=== PATIENT | female | born 1990 ===

== ENCOUNTER 2021-12-29 15:40 | Outpatient (REF) | payer OTHER, SELFPAY ==
[2021-12-29 16:56] LABS: Calculated LDL 99 mg/dL (<100); Cholesterol 182 mg/dL (<200); HDL Cholesterol 72 mg/dL (40-60); Triglyceride 57 mg/dL (<150)
[2021-12-30 12:55] LABS: Tissue Transglutaminase Ab IgA <1.2 U/mL
== END 2021-12-29 15:41 | disposition home or self-care (01) ==
LOC: NCHCN 15:40
PROVIDERS: Visit Provider Physician Assistant
DX: K90.0 Celiac disease (principal); Z13.220 Encounter for screening for lipoid disorders
CPT/HCPCS: 80061; 83516

== ENCOUNTER 2022-10-17 02:35 | Outpatient (CLI) | payer BC, SELFPAY ==
--- NOTE | 2022-10-17 07:45 | DI.MRI_ITS ---
Exam(s) MR LOWER JOINT RT WO EXAM: MR LOWER JOINT RT WO CLINICAL HISTORY: MCL SPRAIN OF RT KNEE, S83.411A; INTERNAL DERANGEMENT, M23.91. TECHNIQUE: Multiplanar multisequence MRI was performed. COMPARISON: CR XR KNEE 4 VIEW RIGHT from 08/21/2022 FINDINGS: BONES: There is no fracture or contusion pattern. JOINTS: Articular cartilage is unremarkable. No effusion is present. TENDONS: Extensor mechanism: Unremarkable. Medial retinaculum: Unremarkable. Lateral retinaculum: Unremarkable. Popliteus: Unremarkable. MUSCLES: Unremarkable. MENISCI: The medial meniscus is unremarkable. The lateral meniscus is unremarkable. SOFT TISSUES: Unremarkable. LIGAMENTS: Anterior Cruciate: Unremarkable. Posterior Cruciate: Unremarkable. Medial Collateral:Unremarkable. Lateral Collateral: Unremarkable. OTHER: IMPRESSION: Unremarkable MRI of the right knee. DATA REPOSITORY:
== END 2022-10-17 02:55 ==
LOC: DI 02:36
PROVIDERS: Visit Provider Physician Assistant
DX: S83.411A Sprain of medial collateral ligament of right knee, initial encounter (principal); X58.XXXA Exposure to other specified factors, initial encounter
CPT/HCPCS: 73721

== ENCOUNTER 2022-12-05 19:44 | Outpatient (REF) | payer BC, SELFPAY ==
[2022-12-06 14:24] LABS: Chlamydia Result Negative (Negative); GC Result Negative (Negative)
== END 2022-12-05 19:45 | disposition home or self-care (01) ==
LOC: NCHCN 19:44
PROVIDERS: Visit Provider Physician Assistant
DX: Z11.3 Encounter for screening for infections with a predominantly sexual mode of transmission (principal)
CPT/HCPCS: 87491; 87591

== ENCOUNTER 2024-01-15 16:49 | Outpatient (REF) | payer OTHER, SELFPAY ==
--- NOTE | 2024-01-15 13:20 | PAPFT_PTH ---
PATIENT: Rachana Sewell LOC: [facility]#:[id number] AGE/SX: 33/F ROOM: RE01/15/[address]: Shorty Beaulieu : 1990 BED: DIS: 01/15/2024 SPEC #: [id number] RECD: 01/15/24 18:22 STATUS: YANG REQ #: [id number] CARLA: 01/15/24 13:[address]: Shorty Beaulieu DEPT: [facility], [facility]–1983 Cytology RECD BY: Meka Brower ENTERED: 01/15/24 18:22 SP TYPE: PAPFT OTHR DR: Unknown,Unknown Tissues: 1 - CX/ENDOCX FOR PAP SMEARS Procedures: PAP THIN PREP/[facility] Screening HPV DNA PROBE Comments: [id number] (HPV 16 & 18/45)
--- OUTSIDE RECORDS SUMMARY | 2024-01-15 16:50 | XMS_ITS | Encounter Summary ---
Author Organization [facility] Address [address] [place] [address] Care Team Providers Care Slot Supervisor Name Role Phone Siena Jimenez Primary Care Provider + Encounter Details Date Type Department Care Team (Late st Contact Info) Description 05/17/2021 Lab Requisition [facility] Pathology & [facility] [address] [place] [address] Outr Resulting Lab, Provider Social History Tobacco Use Types Packs/Day Years Used Date Smoking Tobacco: Former Cigarettes Q uit: 10/11/2015 Smokeless Tobacco: Never Alcohol Use Standard Drinks/Week Comments Yes 4.2 (1 standard drink = 0.6 oz p ure alcohol) Interpersonal Safety Answer Date Record ed Physically Hurt Never 10/25/2019 Verbally Threaten Not on file 10/25/2019 Sex and Gender Information Value Date Recorded Sex Assigned at Not on file Gender Identity Not on file Sexual Orientation Not on file documented as of this encounter Functional Status Cognitive Status Response Date of Assessm ent Because of a physical, menta l, or emotional condition, do you have serious difficulty concentrating, remembering, or making decisions? (5 years old or older) Yes 06/28/2011 documented as of this encounter Plan of Treatment Not on file documented as of this encounter Procedures Procedure Name Priority Date/Time Associated Diagnosis Comments ESTRADIOL, ADULTS Routine 05/17/2021 9:58 EST LH Routine 05/17/2021 9:58 EST FSH Routine 05/17/2021 9:58 EST documented in this encounter Results * FSH (05/17/2021 9:58 EST) FSH 9.0 See Note mIU/mL 05/17/2021 22:28 EST [facility] Blood VENOUS BLOOD / Unknown 05/17/2021 9:58 EST 05/17/2021 21:07 EST Narrative [facility] - 05/17/2021 22:28 EST NOTE: Female FSH Reference Ranges (>= 13 Menstruating): PHYSIOLOGICAL STATUS ? REFERENCE RANGE ? Follicular (-12 to -4 days): ?? 2.5 - 10.2 mIU/mL Midcycle (-3 to +2 days): ?3.4 - 33.4 mIU/mL Luteal (+4 to +12 days): ? 1.5 - 9.1 mIU/mL Postmenopausal: ?23.0 - 116.3 mIU/mL Reference Ranges for female patients <13 years old have not been established. Provider Outr Resulting Lab CHEMISTRY & BLOOD GAS ORDERABLES [facility] [address] [place] [address] * ESTRADIOL, ADULTS (05/17/2021 9:58 EST) Estradiol 296 See Note pg/mL 05/17/2021 22:02 EST [facility] Comment: NOTE: FEMALE REFERENCE RANGES: MENSTRUATING ? By cycle day relative to LH peak Follicular ?(-12 to -4 days) ??20-144 pg/mL Midcycle ?(-3 to +2 days) ?? 64-357 pg/mL Luteal ?(+4 t0 +12 days) ??56-214 pg/mL POSTMENOPAUSAL ?<32 pg/mL *Cross reactivity with Fulvestrant could lead to a falsely elevated estradiol result in patients treated with this drug. Blood VENOUS BLOOD / Unknown 05/17/2021 9:58 EST 05/17/2021 21:07 EST Provider Outr Resulting Lab CHEMISTRY & BLOOD GAS ORDERABLES Performing Organization Address [facility] de Phone Number [facility] [address] [place] [address] * LH (05/17/2021 9:58 EST) Luteinizing Hormone 5.5 See Note mIU/mL 05/17/2021 22:26 EST [facility] Comment: NOTE: Female Reference Ranges: Pre-Pubertal: ?<6.0 mIU/mL Menstruating: Follicular Phase(-12 to -4 days: ??1.9 - 12.5 mIU/mL Midcycle(-3 to +2 days): ?8.7 - 76.3 mIU/mL Luteal Phase(+4 to +12 days): ? 0.5 - 16.9 mIU/mL Post Menopausal: 15.9 - 54.0 mIU/mL Blood VENOUS BLOOD / Unknown 05/17/2021 9:58 EST 05/17/2021 21:07 EST Provider Outr Resulting Lab CHEMISTRY & BLOOD GAS ORDERABLES Performing Organization Address [facility] de Phone Number [facility] [address] [place] [address] documented in this encounter Visit Diagnoses Not on filedocumented in this encounter Care Teams Slot Supervisor Relationship Specialty Start Date End Date Siena Jimenez PA [address] [place] [address] [place] [phone] PCP - General 09/29/18 documented as of this encounter
--- OUTSIDE RECORDS SUMMARY | 2024-01-15 16:50 | XMS_ITS | Encounter Summary ---
Author Organization [facility] Address [address] [place] [address] Care Team Providers Care Senior Software Development Engineer Name Role Phone Siena Jimenez Primary Care Provider + Encounter Details Date Type Department Care Team (Late st Contact Info) Description 12/05/2022 Lab Requisition [facility] Pathology & Laboratory Medicine - [facility] [address] [place] [address] Outr Resulting Lab, Provider Social History Tobacco [...] Procedure Name Priority Date/Time Associated Diagnosis Comments CHLAMYDIA/N. GONORRHOEAE AMPLIFIED NUCLEIC ACID Routine 12/05/2022 11:00 EDT documented in this encounter Results * CHLAMYDIA/N. GONORRHOEAE AMPLIFIED RNA (12/05/2022 11:00 EDT) Neisseria gonorrhoeae Result Negative Negative 12/06/2022 14:14 EDT [facility] Chlamydia trachomatis Result Negative Negative 12/06/2022 14:14 EDT [facility] Urine URINE / Unknown 12/05/2022 1 1:00 EDT 12/05/2022 22:25 EDT Narrative [facility] - 12/06/2022 14:14 EDT A first catch urine specimen is acceptable for detection of Gonorrhea and Chlamydia, but might detect up to 10% fewer infections when compared with vaginal and endocervical swab samples. Provider Outr Resulting Lab MICROBIOLOGY - GENERAL ORDERABLES [facility] [address] [place] [address] documented in this encounter Visit Diagnoses Not on filedocumented in this encounter Care Teams Senior Software Development Engineer Relationship Specialty Start Date End Date Siena Jimenez PA [address] [place] [address] [place] [address] PCP - General 09/29/18 documented as of this encounter
--- OUTSIDE RECORDS SUMMARY | 2024-01-15 16:50 | XMS_ITS | Encounter Summary ---
Author Organization [facility] Address [address] [place] [address] Care Team Providers Care Script Artist Name Role Phone Siena Jimenez Primary Care Provider + Encounter Details Date Type Department Care Team (Late st Contact Info) Description 06/21/2020 Orders Only [facility] Radiology - Main [place] [address] [place] [address] Jane Gibson MD [address] [place] [address] Social History Tobacco Use Types Packs/Day Years [...] on file documented as of this encounter Visit Diagnoses Not on filedocumented in this encounter Care Teams Script Artist Relationship Specialty Start Date End Date Siena Jimenez PA [address] [place] [address] [place] [phone] PCP - General 09/29/18 documented as of this encounter
--- OUTSIDE RECORDS SUMMARY | 2024-01-15 16:50 | XMS_ITS | Referral Summary ---
Author Organization [facility] Address [address] [place] [address] Care Team Providers Care Manager Produce Name Role Phone Siena Jimenez Primary Care Provider + Allergies Active Allergy Reactions Criticality Noted Date Comments Avocado Itching 11/02/2016 Other - See Comments Other (See Comments) 05/24 Raw honey, avocado --> itchy mouth, throat, ear canals Medications Medication Sig Dispensed Refills Start Date End Date Status acetaminophen (TYLENOL) 500 mg tablet Take 2 Tabs by mouth every 6 hours. 06/29/2011 Active citalopram (CELEXA) 10 mg tablet Take 10 mg by mouth daily. 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 Hyperprolactinemia (HCC-CMS) 09/13/2011 Fracture of second lumbar vertebra (HCC-CMS) 07/2011 Immunizations Name Administration Dates Next Due Influenza (split) 06/29/2011 Social History Tobacco Use Types Packs/Day Years [...] on file Sexual Orientation Not on file Last Filed Vital Signs Vital Sign Reading Time Taken Comments Blood Pressure 118/63 10/10/2018 1339 EDT Pulse 63 10/10/2018 1339 EDT Temperature 35.5 ??C (95.9 ??F) 06/30/2011 0530 EDT Respiratory Rate 12 10/24/2011 1059 EDT Oxygen Saturation 100% 06/30/2011 0530 EDT Inhaled Oxygen Concentration - - Weight 90.7 kg (199 lb 14.4 oz) 10/10/2018 1339 EDT Height 168.9 cm (5' 6.5) 10/10/2018 1339 EDT Body Mass Index 31.78 10/10/2018 1339 EDT Functional Status Cognitive Status Response Date of Assessm ent Because of a physical, menta l, or emotional condition, do you have serious difficulty concentrating, remembering, or making decisions? (5 years old or older) Yes 06/28/2011 Plan of Treatment Not on file Advance Directives For more information, please contact: [phone] * Full Code (Latest Code Status on File) Date Activated Date Inactivated Comments 06/28/2011 5:02 06/30/2011 16:52 Care Teams Manager Produce Relationship Specialty Start Date End Date Siena Jimenez PA [address] [place] [address] [place] [phone] PCP - General 09/29/18
--- OUTSIDE RECORDS SUMMARY | 2024-01-15 16:50 | XMS_ITS | Encounter Summary ---
Author Organization [facility] Address [address] [place] [address] Care Team Providers Care Picture Framer Name Role Phone Siena Jimenez Primary Care Provider + Reason for Visit * Reason Onset Date Comments Medication Management 10/14/2018 Encounter Details Date Type Department Care Team (Late st Contact Info) Description 10/14/2018 Telephone [facility] Endocrinology - [address] [address] Parvez Wright MD [address] [place] [address] Medication Management Social History Tobacco Use Types Packs/Day Years Used Date Smoking Tobacco: Former Cigarettes Q uit: 10/11/2015 Smokeless Tobacco: Never Alcohol Use Standard Drinks/Week Comments Yes 4.2 (1 standard drink = 0.6 oz p ure alcohol) Sex and Gender Information Value Date Recorded [...] Yes 06/28/2011 documented as of this encounter Ordered Prescriptions Prescription Sig Dispensed Refills Start Date End Da te cabergoline (DOSTINEX) 0.5 mg tabletIndications:Amenor lilly, secondary,Hyperprolactin emia (HCC-CMS) Take 0.5 Tabs by mouth twice a week. Mondays and wednesdays 24 Tab 1 10/16/2018 11/24/2019 documented in this encounter Miscellaneous Notes * Telephone Encounter - Lorraine Doss RN - 10/15/2018 1140 EDT Calling patient 10/15/18 11:41 Unable to reach patient. Left message to call back if has any questions. LORRAINE DOSS RN 10/15/2018 11:42 * Telephone Encounter - Parvez Wright MD - 10/14/2018 1656 EDT I just prescribed it thanks * Telephone Encounter - Tomasa Cooper - 10/14/2018 1124 EDT Patient is calling to inform Dr. Jeff that she would like to go on the medication of [place]. Please send the prescription to [facility]. Please call with any questions or concerns. documented in this encounter Plan of Treatment Not on file documented as of this encounter Visit Diagnoses Diagnosis Amenorrhea, secondary Absence of menstruation Hyperprolactinemia (HCC-CMS) Other and unspecified anterior pituitary hyperfunction documented in this encounter Discontinued Medications Medication Sig Discontinue Reason Start Date End Da te cabergoline (DOSTINEX) 0.5 mg tabletIndications:Amenorr hea, secondary,Hyperprolactine mya (HCC-CMS) Take 0.5 Tabs by mouth twice a week. Therapy completed 09/13/2011 10/14/2018 documented as of this encounter Care Teams Picture Framer Relationship Specialty Start Date End Date Siena Jimenez PA [address] [place] [address] [place] [phone] PCP - General 09/29/18 documented as of this encounter
--- OUTSIDE RECORDS SUMMARY | 2024-01-15 16:50 | XMS_ITS | Encounter Summary ---
Author Organization [facility] Address [address] [place] [address] Care Team Providers Care Lay Midwife Name Role Phone Siena Jimenez Primary Care Provider + Reason for Visit * Reason Comments Other Encounter Details Date Type Department Care Team (Late st Contact Info) Description 11/24/2019 Refill [facility] Endocrinology - [address] [address] Parvez Wright MD [address] [place] [address] Other Social History Tobacco Use Types Packs/Day Years [...] 0.5 mg tabletIndications:Amenor lilly, secondary,Hyperprolactin emia (HCC-CMS) TAKE 1/2 TABLET BY MOUTH TWO TIMES A WEEK ON SATURDAY AND SATURDAY 24 Tab 1 11/24/2019 06/30/2020 documented in this encounter Plan of Treatment Not on file documented as of this encounter Visit Diagnoses Diagnosis Amenorrhea, secondary Absence of menstruation Hyperprolactinemia (HCC-CMS) Other and unspecified anterior pituitary hyperfunction documented in this encounter Discontinued Medications Medication Sig Discontinue Reason Start Date End Da te cabergoline (DOSTINEX) 0.5 mg tabletIndications:Amen orrhea, secondary,Hyperprolact inemia (HCC-CMS) Take 0.5 Tabs by mouth twice a week. Mondays and wednesdays10/16/2018 11/24/2019 documented as of this encounter Care Teams Lay Midwife Relationship Specialty Start Date End Date Siena Jimenez PA [address] [place] [address] [place] [address] PCP - General 09/29/18 documented as of this encounter
--- OUTSIDE RECORDS SUMMARY | 2024-01-15 16:50 | XMS_ITS | Encounter Summary ---
Author Organization [facility] Address [address] [place] [address] Care Team Providers Care Developer Automatic Name Role Phone Siena Jimenez Primary Care Provider + Encounter Details Date Type Department Care Team (Late st Contact Info) Description 07/27/2019 Lab Requisition [facility] Pathology & Laboratory Medicine - [facility] [address] [place] [address] Outr Resulting Lab, Provider Social History Tobacco [...] Procedure Name Priority Date/Time Associated Diagnosis Comments PROLACTIN Routine 07/27/2019 10:29 EDT documented in this encounter Results * PROLACTIN (07/27/2019 10:29 EDT) Prolactin 41.7 See Table ng/mL 07/28/2019 11:03 EDT [facility] Comment: NOTE: Female Reference Ranges: PHYSIOLOGICAL STATUS ?EXPECTED RANGE ? Postmenopausal ?1.8 - 20.3 ng/mL ?9.7 - 208.5 ng/mL Non- ?2.8 - 29.2 ng/mL Reference Ranges for Prolactin in female patients <18 years old have not been established. Blood VENOUS BLOOD / Unknown 07/27/2019 10:29 EDT 07/27/2019 21:54 EDT Provider Outr Resulting Lab CHEMISTRY & BLOOD GAS ORDERABLES Performing Organization Address [facility] Co de Phone Number [facility] [address] [place] [address] documented in this encounter Visit Diagnoses Not on filedocumented in this encounter Care Teams Developer Automatic Relationship Specialty Start Date End Date Siena Jimenez PA [address] [place] [phone] PCP - General 09/29/18 documented as of this encounter
--- OUTSIDE RECORDS SUMMARY | 2024-01-15 16:50 | XMS_ITS | Encounter Summary ---
Author Organization [facility] Address [address] [place] [address] Care Team Providers Care Dump Motor Operator Name Role Phone Siena Jimenez Primary Care Provider + Reason for Visit * Reason Comments Other Encounter Details Date Type Department Care Team (Late st Contact Info) Description 09/28/2020 Refill [facility] Endocrinology - [address] [address] Parvez Wright MD [address] [place] [address] Other Social History Tobacco Use [...] SATURDAY AND SATURDAY 24 Tablet 1 10/03/2020 documented in this encounter Miscellaneous Notes * Telephone Encounter - Veronique Goodman RN - 09/29/2020 0851 EDT PLAN 1. Check full pituitary panel 2. Pituitary MRI 3. We will increase Dostinex to 1 tablet twice per week if prolactin remains elevated documented in this encounter Plan of Treatment Not on file documented as of this encounter Visit Diagnoses Diagnosis Amenorrhea, secondary Absence of menstruation Hyperprolactinemia (HCC-CMS) Other and unspecified anterior pituitary hyperfunction documented in this encounter Discontinued Medications Medication Sig Discontinue Reason Start Date End Da te cabergoline (DOSTINEX) 0.5 mg tabletIndications:Amenorr hea, secondary,Hyperprolactine mya (HCC-CMS) Take 1 Tab by mouth twice a week for 90 days. 06/30/2020 10/03/2020 documented as of this encounter Care Teams Dump Motor Operator Relationship Specialty Start Date End Date Siena Jimenez PA [address] [place] [address] [place] [address] PCP - General 09/29/18 documented as of this encounter
--- OUTSIDE RECORDS SUMMARY | 2024-01-15 16:50 | XMS_ITS | Encounter Summary ---
Author Organization [facility] Address [address] [place] [address] Care Team Providers Care Deburr Operator Name Role Phone Siena Jimenez Primary Care Provider + Reason for Visit * Reason Onset Date Comments Labs Only 06/22/2020 Encounter Details Date Type Department Care Team (Late st Contact Info) Description 06/22/2020 Telephone [facility] Endocrinology - [address] [address] Parvez Wright MD [address] [place] [address] Labs Only Social History Tobacco Use Types Packs/Day Years [...] Yes 06/28/2011 documented as of this encounter Miscellaneous Notes * Telephone Encounter - Marla Ceballos - 06/22/2020 1604 EDT [place] [facility] requesting labs from Dr. Jeff be faxed. Climb[facility] Guide faxed labs to [phone] and [phone] documented in this encounter Plan of Treatment Not on file documented as of this encounter Visit Diagnoses Not on filedocumented in this encounter Care Teams Deburr Operator Relationship Specialty Start Date End Date Siena Jimenez PA [address] [place] [address] [place] [phone] PCP - General 09/29/18 documented as of this encounter
--- OUTSIDE RECORDS SUMMARY | 2024-01-15 16:50 | XMS_ITS | Encounter Summary ---
Author Organization [facility] Address [address] [place] [address] Care Team Providers Care Tree Worker Name Role Phone Siena Jimenez Primary Care Provider + Reason for Visit * Reason Onset Date Comments Medications Refill 12/13/2021 Encounter Details Date Type Department Care Team (Late st Contact Info) Description 12/13/2021 Refill [facility] Endocrinology - [address] [address] Felix Santizo MD Medications Refill Social History Tobacco Use Types Packs/Day Years [...] Miscellaneous Notes * Telephone Encounter - Lorraine Engel - 12/29/2021 1415 EDT Patient is being seen at [facility] for endo care, please refuse refill * Telephone Encounter - Lorraine Engel - 12/21/2021 1103 EDT Left message for patient to contact office for next available appointment. Advised RX refill request received. We would like to get an appointment scheduled and process RX. Also requested patient contact the clinic if has a new provider so that we can update the chart. Provider: thyroid pathway maricruz Lynn (last saw Tomer 2020) Once scheduled, please route message to nursing to process RX refill request immediately for patient. If patient is seeing a new provider, please document and route message to nursing to refuse RX. Thenew provider will need to process the prescription. * Telephone Encounter - Be Jaramillo MA - 12/13/2021 0846 EDT Images from the original note were not included. We received a fax from [employer] requesting a refill for CABERGOLINE 0.5 mg TAB. Please review appropriately. documented in this encounter Plan of Treatment Not on file documented as of this encounter Visit Diagnoses Diagnosis Amenorrhea, secondary Absence of menstruation Hyperprolactinemia ([facility]-CMS) Other and unspecified anterior pituitary hyperfunction documented in this encounter Care Teams Tree Worker Relationship Specialty Start Date End Date Siena Jimenez PA [address] [place] [address] [place] [address] PCP - General 09/29/18 documented as of this encounter
--- OUTSIDE RECORDS SUMMARY | 2024-01-15 16:50 | XMS_ITS | Encounter Summary ---
Author Organization [facility] Address [address] [place] [address] Care Team Providers Care Lithograph Designer Name Role Phone Siena Jimenez Primary Care Provider + Encounter Details Date Type Department Care Team (Late st Contact Info) Description 06/23/[address] [facility] Pathology & Laboratory Medicine - [facility] [address] [place] [address] Outr Resulting Lab, Provider Social History Tobacco [...] Priority Date/Time Associated Diagnosis Comments PROLACTIN Routine 06/23/2020 8:22 EDT CORTISOL Routine 06/23/2020 8:22 EDT documented in this encounter Results * PROLACTIN (06/23/2020 8:22 EDT) Prolactin 49.7 See Table ng/mL 06/23/2020 22:25 EDT [facility] Comment: NOTE: Female Reference Ranges: PHYSIOLOGICAL STATUS ?EXPECTED RANGE ? Postmenopausal ?1.8 - 20.3 ng/mL ?9.7 - 208.5 ng/mL Non- ?2.8 - 29.2 ng/mL Reference Ranges for Prolactin in female patients <18 years old have not been established. Blood VENOUS BLOOD / Unknown 06/23/2020 8:22 EDT 06/23/2020 21:30 EDT Provider Outr Resulting Lab CHEMISTRY & BLOOD GAS ORDERABLES [facility] [address] [place] [address] * CORTISOL (06/23/2020 8:22 EDT) Cortisol 9 See Note ug/dL 06/23/2020 22:17 EDT [facility] Comment: NOTE: Reference Ranges (from [facility] IFU): Collected Before 10:00 AM: ??4 - 23 ug/dL Collected After 5:00 PM: ?2 - 14 ug/dL The results of this assay can be falsely elevated due to the consumption of Biotin. Blood VENOUS BLOOD / Unknown 06/23/2020 8:22 EDT 06/23/2020 21:30 EDT Provider Outr Resulting Lab CHEMISTRY & BLOOD GAS ORDERABLES [facility] [address] [place] [address] documented in this encounter Visit Diagnoses Not on filedocumented in this encounter Care Teams Lithograph Designer Relationship Specialty Start Date End Date Siena Jimenez PA [address] [place] [address] [place] [phone] PCP - General 09/29/18 documented as of this encounter
--- OUTSIDE RECORDS SUMMARY | 2024-01-15 16:50 | XMS_ITS | Encounter Summary ---
Author Organization [facility] Address [address] [place] [address] Care Team Providers Care Agriscience Technology Instructor Name Role Phone Siena Jimenez Primary Care Provider + Reason for Referral * Radiology Services (Routine) - Closed Specialty Diagnoses / Procedures Referred By Raza gerard Referred To Contact Diagnoses Amenorrhea, secondary Hyperprolactinemia (HCC-CMS) Galactorrhea Procedures MR PITUITARY W WO CONTRAST Parvez Wright MD [address] [address] Referral ID Status Reason Start Date Expiration Date Visits Re quested Visits Authorized [id number] Closed 06/21/2020 1 1 Reason for Visit * Reason Comments Pituitary Abnormality Encounter Details Date Type Department Care Team (Late st Contact Info) Description 06/21/2020 8:00 EDT Telemedicine [facility] Endocrinology - [address] [address] Parvez Wright MD [address] [place] [address] Amenorrhea, secondary (Primary Dx); Hyperprolactinemia (HCC-CMS); Galactorrhea Social History Tobacco Use Types Packs/Day Years [...] Yes 06/28/2011 documented as of this encounter Progress Notes * Parvez Wright MD - 06/21/2020 0800 EDT 06/20/2020 Follow-up PATIENT: Rachana Stearns CHIEF COMPLAINT No chief complaint on file. HISTORY OF PRESENT ILLNESS Rachana Stearns is a very pleasant 29 y.o. female who presents with galactorrhea HPI Follow-up June 21, 2020 On last visit I prescribed cabergoline for mild hyperprolactinemia. She has been taking Dostinex 0.25 mg 2 times a week. Her most recent prolactin level was checked in October 2019 and it was 41.7 ng/mL. We did not get a report of her MRI that she had done many years ago. She reports today that she is having regular menses but she is having bad cramps on one side. Bryce meet with gynecology this . Otherwise, she does not have any other concerns. First appointment October 102018 She was seen by Dr. Kulkarni who was an seat mender in our division in 2011. At that time, she was seen in consultation for hyperprolactinemia and secondary amenorrhea. Menarche was around age 10. Periods were initially regular every 30 to 45 days and she began to have non- associated hyperprolactinemia at age 13. She had been on OCPs on and off for years. When she was referred to us in 2011, she had stopped OCPs for a year and she had had a menorrhea ever since. She was only using condoms for contraception and apparently she had had a normal pituitary MRI in April 2010. During that appointment a pituitary function profile was checked and cabergoline 0.5 mg twice weekly was prescribed. Her pituitary labs were all normal. IGF 236, estradiol 78, FSH 6.9, LH 8.6, prolactin 53.8. As far as imaging, I cannot find a report in [facility]. Today she reports: She added that she is not interested in , she has anxiety and she picks her breasts (we can see multiple skin excoriations) constantly and she acknowledges that this may lead to elevated prolactin Regarding her weight, she says that this is her fault even though she does exercise doing cardio regularly She recently had the following lab work, June 2018: Prolactin 59.2 ng/mL (2.8-29.2) LH 8.7 units/mL (normal) FSH 8.0 units/mL (normal) TSH 0.91 units/mL, free T4 not available PAST HISTORY Negative for PCOS or CAH Past Medical History: Diagnosis Date ??? Thumb fracture right No past surgical history on file. No family history on file. Social History Tobacco Use ??? Smoking status: Former Smoker Types: Cigarettes Quit date: 10/11/2015 Years since quittin.6 ??? Smokeless tobacco: Never Used Substance Use Topics ??? Alcohol use: Yes Alcohol/week: 4.2 standard drinks Types: 5 Standard drinks or equivalent per week ??? Drug use: Not on file MEDICATIONS Current Outpatient Medications Medication Sig Dispense Refill ??? acetaminophen (TYLENOL) 500 mg tablet Take 2 Tabs by mouth every 6 hours. ??? cabergoline (DOSTINEX) 0.5 mg tablet TAKE 1/2 TABLET BY MOUTH TWO TIMES A WEEK ON SATURDAY AND SATURDAY 24 Tab 1 ??? citalopram (CELEXA) 10 mg tablet Take 10 mg by mouth daily. No current facility-administered medications for this visit. ALLERGIES Allergies Allergen Reactions ??? Avocado Itching ??? Other - See Comments Other (See Comments) Raw honey, avocado --> itchy mouth, throat, ear canals REVIEW OF SYSTEMS Endo/Heme/Allergies: Not bothered by her galactorrhea Bothered about menstrual cycles Irregular menses - past 12 months about 4 times They are getting even longer now - usually 5 days, normal time length. Very heavy first 2 days and the it tapers off Not interested in Wanted a brake from OCPs therefore stopped them. VITALS There were no vitals filed for this visit. PHYSICAL EXAM Nursing note and vitals reviewed.Vitals signs and nursing note reviewed. Constitutional: General: She is not in acute distress. Appearance: She is well-developed and well-nourished. She is not diaphoretic. HENT: Head: Normocephalic and atraumatic. Mouth/Throat: Mouth: Oropharynx is clear and moist. Eyes: Extraocular Movements: EOM normal. Conjunctiva/sclera: Conjunctivae normal. Pupils: Pupils are equal, round, and reactive to light. Neck: Musculoskeletal: Normal range of motion and neck supple. Thyroid: No thyromegaly. Vascular: No JVD. Trachea: No tracheal deviation. Cardiovascular: Rate and Rhythm: Normal rate and regular rhythm. Pulses: Intact distal pulses. Heart sounds: Normal heart sounds. Pulmonary: Effort: Pulmonary effort is normal. No respiratory distress. Breath sounds: Normal breath sounds. Abdominal: Palpations: Abdomen is soft. Genitourinary: Comments: Galactorrhea noticed on both breasts. There is no abnormal appearance to the nipple discharge. I do not palpate any lumps. Her left sided nipple is inverted but she tells me that she has had this since she was a teenager Musculoskeletal: Normal range of motion. General: No deformity or edema. Lymphadenopathy: Cervical: No cervical adenopathy. Skin: Capillary Refill: Capillary refill takes less than 2 seconds. Comments: No hirsutism No easy bruising-she bruised on her right thigh but she was moving and she bumped into a cabinet Multiple excoriations on her chest and abdomen consistent with the HPI Neurological: Mental Status: She is alert and oriented to person, place, and time. Cranial Nerves: No cranial nerve deficit. Sensory: No sensory deficit. Motor: No abnormal muscle tone. Coordination: Coordination normal. Psychiatric: Mood and Affect: Mood and affect normal. Behavior: Behavior normal. Thought Content: Thought content normal. Judgment: Judgment normal. Exam not performed June 21, 2020 ASSESSMENT 1. Amenorrhea, secondary MR PITUITARY W WO CONTRAST PROLACTIN IGF-1, LC/MS, S TSH T4 FREE ACTH, PLASMA LH FSH CORTISOL COMPREHENSIVE METABOLIC PANEL (CMP) ESTRADIOL, ADULTS 2. Hyperprolactinemia (HCC-CMS) MR PITUITARY W WO CONTRAST PROLACTIN IGF-1, LC/MS, S TSH T4 FREE ACTH, PLASMA LH FSH CORTISOL COMPREHENSIVE METABOLIC PANEL (CMP) ESTRADIOL, ADULTS 3. Galactorrhea MR PITUITARY W WO CONTRAST PROLACTIN IGF-1, LC/MS, S TSH T4 FREE ACTH, PLASMA LH FSH CORTISOL COMPREHENSIVE METABOLIC PANEL (CMP) ESTRADIOL, ADULTS 1. History of mild hyperprolactinemia -Multiple excoriations seen on her breast due to scratching on initial consultation -She takes citalopram -Prolactin levels have been less than 100 since diagnosis 2. Negative MRI in 2010 She is doing well. We are going to get a baseline MRI because I have not had a chance to review previous reports. Also, we may discontinue Dostinex if she is prescribed oral contraceptives by gynecology, if the MRI is negative and if prolactin level is low or normal. PLAN 1. Check full pituitary panel 2. Pituitary MRI 3. We will increase Dostinex to 1 tablet twice per week if prolactin remains elevated 4. Recommend baseline ophthalmological exam 5. Follow-up every 6 months Parvez Chong MD 06/20/2020 8:49 documented in this encounter Plan of Treatment Not on file documented as of this encounter Results * MR PITUITARY W WO CONTRAST (09/15/2020 14:40 EDT) Anatomical Region Laterality Modality Head Magnetic Resonan ce 09/15/2020 15:3 1 EDT Impressions 09/15/2020 15:31 EDT 2.5 mm hypoenhancing lesion in the right aspect of the pituitary could represent a pituitary microadenoma. I have personally reviewed the images and the above interpretation and agree with the findings. Narrative 09/15/2020 15:31 EDT EXAM: MRI PITUITARY WO/W CONTRAST HISTORY: hyperprolactinemia TECHNIQUE: MRI of the pituitary without and with intravenous gadolinium contrast. Dynamic post-contrast sequences were obtained. Structured report code: NR.MR46 COMPARISON: None. FINDINGS: ADENOHYPOPHYSIS: Normal size and morphology. 2.5 mm focus of hypoenhancement in the right aspect of the pituitary (image 6, series 701). No other hypoenhancing lesions. NEUROHYPOPHYSIS: Normal position and normal intrinsic T1 hyperintensity. INFUNDIBULUM: Midline position. Normal caliber. CAVERNOUS SINUSES: Normal venous enhancement. Cavernous carotid flow voids are normal. HYPOTHALAMUS: Normal. OPTIC CHIASM: Normal. 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 Procedure Note Stanislaw Ernst MD - 09/15/2020 EXAM: MRI PITUITARY WO/W CONTRAST HISTORY: hyperprolactinemia TECHNIQUE: MRI of the pituitary without and with intravenous gadoliniumcontrast. Dynamic post-contrast sequences were obtained. Structured reportcode: NR.MR46 COMPARISON: None. FINDINGS: ADENOHYPOPHYSIS: Normal size and morphology. 2.5 mm focus of hypoenhancement in the rightaspect of the pituitary (image 6, series 701). No other hypoenhancinglesions. NEUROHYPOPHYSIS: Normal position and normal intrinsic T1 hyperintensity. INFUNDIBULUM: Midline position. Normal caliber. CAVERNOUS SINUSES: Normal venous enhancement. Cavernous carotid flow voids are normal. HYPOTHALAMUS: Normal. OPTIC CHIASM: Normal. 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 IMPRESSION 2.5 mm hypoenhancing lesion in the right aspect of the pituitary couldrepresent a pituitary microadenoma. I have personally reviewed the images and the above interpretation andagree with the findings. Parvez Chong MD IMG MRI [facility] documented in this encounter Visit Diagnoses Diagnosis Amenorrhea, secondary- Primary Absence of menstruation Hyperprolactinemia (HCC-CMS) Other and unspecified anterior pituitary hyperfunction Galactorrhea Galactorrhea not associated with childbirth Amenorrhea, secondary Absence of menstruation Hyperprolactinemia (HCC-CMS) Other and unspecified anterior pituitary hyperfunction Galactorrhea Galactorrhea not associated with childbirth documented in this encounter Care Teams Agriscience Technology Instructor Relationship Specialty Start Date End Date Siena Jimenez PA [address] [place] [address] [place] [address] PCP - General 09/29/18 documented as of this encounter
--- OUTSIDE RECORDS SUMMARY | 2024-01-15 16:50 | XMS_ITS | Clinical Summary ---
Author Organization [facility] Address [address] [place] [address] Care Team Providers Care Visualization Developer Name Role Phone Siena Jimenez Primary Care [...] Administration Dates Next Due Influenza (split) 06/29/2011 Medical History Medical History Date Comments Thumb fracture right Social History Tobacco Use Types Packs/Day Years [...] on file Sexual Orientation Not on file Obstetrics History Last Filed Vital Signs Vital Sign Reading [...] Body Mass Index 31.78 10/10/2018 1339 EDT Plan of Treatment Health Maintenance Due Date Last Done Comments Hepatitis C Screen 1988 Hepatitis B Vaccine (1 of 3 - 19+ 3-dose series) 11/05 COVID-19 Vaccine ( season) 2022 Advance Directives For more information, please contact: [phone] * Full Code (Latest Code Status on File) Date Activated Date Inactivated Comments 06/28/2011 5:02 06/30/2011 16:52 Care Teams Visualization Developer Relationship Specialty Start Date End Date Siena Jimenez PA [address] [place] [address] [place] [phone] PCP - General 09/29/18
--- OUTSIDE RECORDS SUMMARY | 2024-01-15 16:50 | XMS_ITS | Encounter Summary ---
Author Organization [facility] Address [address] [place] [address] Care Team Providers Care Judicial Registrar Name Role Phone Siena Jimenez Primary Care Provider + Encounter Details Date Type Department Care Team (Late st Contact Info) Description 11/10/2019 Lab Requisition [facility] Pathology & Laboratory Medicine - [facility] [address] [place] [address] Siena Jimenez PA [address] [place] [phone] Encounter for other general examination Social History Tobacco Use Types Packs/Day Years [...] Procedure Name Priority Date/Time Associated Diagnosis Comments PAP TEST Today 11/10/2019 10:59 EDT HPV DNA DETECTION WITH GENOTYPING, PCR Today 11/10/2019 10:59 EDT documented in this encounter Results * HUMAN PAPILLOMAVIRUS (HPV) DETECTION-HIGH RISK TYPES (11/10/2019 10:59 EDT) HPV other High Risk types, PCR Negative Negative 11/23/2019 14:47 EDT [facility] Comment:No E6 or E7 mRNA is detected from HPV types 16,18,31,33,35,39,45,51,52,56,58,59,66, and 68 by rock worker mediated amplification. Papanicolaou smear specimen (specimen) CERVIX UTERI STRUCTURE / Unknown 11/10/2019 10:59 EDT 11/20/2019 15:31 EDT Siena MUHAMMAD MICROBIOLOGY - G ENERAL ORDERABLES [facility] [address] [place] [address] * PAP TEST (11/10/2019 10:59 EDT) Specimens A. Cervix and/or Endocervix , ThinPrep Imaging System with Manual Evaluation 11/23/2019 14:47 EDT [facility] Specimen Adequacy Satisfactory for Evaluation - transformation zone component present 11/23/2019 14:47 EDT [facility] General Categorization Negative for intraepithelial lesion or malignancy 11/23/2019 14:47 T [facility] Attestation . 11/23/2019 14:47 T [facility] at 1447 HPV The result for the Human Papillomavirus (HPV) Detection-High Risk Types is Negative. No E6 or E7 mRNA is detected from HPV types 16,18,31,33,35,39 ,45,51,52,56,58,5 9,66, and 68 by rock worker mediated amplification.Francoise ting was performed on specimen [id number] and was resulted on 11/23/2019 1447 EDT by MAMI, LAB INSTRUMENT RESULTS IN 11/23/2019 14:47 EDT [facility] Scanned Images 11/23/2019 14:47 EDT [facility] Papanicolaou smear specimen (specimen) CERVIX UTERI STRUCTURE / Unknown 11/10/2019 10:59 EDT 11/11/2019 11:33 EDT Siena MUHAMMAD PATHOLOGY ORDERA BLES [facility] [address] [place] [address] documented in this encounter Visit Diagnoses Diagnosis Encounter for other general examination documented in this encounter Care Teams Judicial Registrar Relationship Specialty Start Date End Date Siena Jimenez PA [address] [place] [address] [place] [phone] PCP - General 09/29/18 documented as of this encounter
--- OUTSIDE RECORDS SUMMARY | 2024-01-15 16:50 | XMS_ITS | Encounter Summary ---
Author Organization [facility] Address [address] [place] [address] Care Team Providers Care Mate Ship Name Role Phone Siena Jimenez Primary Care Provider + Reason for Visit * (Routine) - Receiving Office to Obtain Authorization Specialty Diagnoses / Procedures Referred By Raza t Referred To Contact Procedures US OUTSIDE IMAGES BODY Unknown, Provider, Referral ID Status Reason Start Date Expiration Date Visits Requested Visits Authorized [id number] Receiving Office to Obtain Authorization 08/03/2020 1 1 Encounter Details Date Type Department Care Team (Latest Contact Info) Description 07/07/2020 - 07/07/2020 23:59 EDT Hospital Encounter [facility] Secondary Reads [place] Discharge Disposition: Home or Self Care Social History Tobacco Use Types Packs/Day Years [...] Yes 06/28/2011 documented as of this encounter Medications at Time of Discharge Medication Sig Dispensed Refills Start Date End Date acetaminophen (TYLENOL) 500 mg tablet Take 2 Tabs by mouth every 6 hours. 06/29/2011 citalopram (CELEXA) 10 mg tablet Take 10 mg by mouth daily. cabergoline (DOSTINEX) 0.5 mg tabletIndications:Amenorr hea, secondary,Hyperprolactine mya (HCC-CMS) Take 1 Tab by mouth twice a week for 90 days. 24 Tab 1 06/30/2020 10/03/2020 documented as of this encounter Discharge Disposition Disposition Code Departure Means Destination Home or Self Care documented in this encounter Plan of Treatment Not on file documented as of this encounter Procedures Procedure Name Priority Date/Time Associated Diagnosis Comments US OUTSIDE IMAGES BODY Routine 08/03/2020 16:50 EDT documented in this encounter Results * US OUTSIDE IMAGES BODY (08/03/2020 16:50 EDT) Narrative 08/03/2020 16:50 EDT This is a non-reportable exam. Provider Unknown MD ARELLANO OTHER IMAGING OR DERABLES documented in this encounter Visit Diagnoses Not on filedocumented in this encounter Care Teams Mate Ship Relationship Specialty Start Date End Date Siena Jimenez PA [address] [place] [address] [place] [phone] PCP - General 09/29/18 documented as of this encounter
--- OUTSIDE RECORDS SUMMARY | 2024-01-15 16:50 | XMS_ITS | Encounter Summary ---
Author Organization [facility] Address [address] [place] [address] Care Team Providers Care Tax Revenue Officer Name Role Phone Siena Jimenez Primary Care Provider + Encounter Details Date Type Department Care Team (Late st Contact Info) Description 11/10/2019 Lab Requisition [facility] Pathology & Laboratory Medicine - [facility] [address] [place] [address] Outr Resulting Lab, Provider Social History Tobacco [...] Associated Diagnosis Comments CHLAMYDIA/N. GONORRHOEAE AMPLIFIED NUCLEIC ACID, THINPREP Routine 11/10/2019 10:59 EDT documented in this encounter Results * CHLAMYDIA/N. GONORRHOEAE AMPLIFIED RNA, THINPREP (11/10/2019 10:59 EDT) Neisseria gonorrhoeae Result Negative Negative 11/12/2019 14:35 EDT [facility] Chlamydia trachomatis Result Negative Negative 11/12/2019 14:35 EDT [facility] Papanicolaou smear specimen (specimen) CERVIX UTERI STRUCTURE / Unknown 11/10/2019 10:59 EDT 11/11/2019 10:01 EDT Provider Outr Resulting Lab MICROBIOLOGY - GENERAL ORDERABLES [facility] [address] [place] [address] documented in this encounter Visit Diagnoses Not on filedocumented in this encounter Care Teams Tax Revenue Officer Relationship Specialty Start Date End Date Siena Jimenez PA [address] [place] [address] [place] [phone] PCP - General 09/29/18 documented as of this encounter
--- OUTSIDE RECORDS SUMMARY | 2024-01-15 16:50 | XMS_ITS | Encounter Summary ---
Author Organization [facility] Address [address] [place] [address] Care Team Providers Care Trouble Clerk Name Role Phone Siena Jimenez Primary Care Provider + Reason for Referral * Radiology Services (Routine) - Closed Specialty Diagnoses / Procedures Referred By Contac t Referred To Contact Diagnoses Amenorrhea, secondary Hyperprolactinemia (HCC-CMS) Galactorrhea Procedures MR PITUITARY W WO CONTRAST Parvez Wright MD [address] [place] [address] Referral ID Status Reason Start Date Expiration Date Visits Re quested Visits Authorized [id number] Closed 06/21/2020 1 1 Reason for Visit * Radiology Services (Routine) - Closed Specialty Diagnoses / Procedures Referred By Contac t Referred To Contact Diagnoses Amenorrhea, secondary Hyperprolactinemia (HCC-CMS) Galactorrhea Procedures MR PITUITARY W WO CONTRAST Parvez Wright MD [address] [place] [address] Referral ID Status Reason Start Date Expiration Date Visits Re quested Visits Authorized [id number] Closed 06/21/2020 1 1 Encounter Details Date Type Department Care Team (Latest Contact Info) Description 09/15/2020 13:17 EDT - 09/15/2020 23:59 EDT Hospital Encounter Terese Guardado [facility] [address] [place] [address] Amenorrhea, secondary; Hyperprolactinemia (HCC-CMS); Galactorrhea Discharge Disposition: Home or Self Care Social [...] or Self Care documented in this encounter Miscellaneous Notes * Result Encounter Note - Parvez Wright MD - 09/15/2020 7635 EDT I have reviewed the labs/results. No action needed. documented in this encounter Plan of Treatment Not on file documented as of this encounter Procedures Procedure Name Priority Date/Time Associated Diagnosis Comments MR PITUITARY W WO CONTRAST Routine 09/15/2020 14:40 EDT Amenorrhea, secondary Hyperprolactinemia (HCC-CMS) Galactorrhea documented in this encounter Results * MR PITUITARY W [...] in this encounter Visit Diagnoses Diagnosis Amenorrhea, secondary Absence of menstruation Hyperprolactinemia (HCC-CMS) Other and unspecified anterior pituitary hyperfunction Galactorrhea Galactorrhea not associated with childbirth documented in this encounter Administered Medications Inactive Administered Medications - up to 3 most recent administrations Medication Order MAR Action Action Date Dose Rate Site gadobutroL (GADAVIST PFS) solution solution 1-15 mmol 1-15 mmol (1-15 mL), intravenous, Once in imaging, 1 dose, Starting on Brina 09/15/20 at 1441, Until Brina 09/15/20 at 1441, Routine, Imaging Protocol Orders Given 09/15/2020 14:41 EDT 9 mmol documented in this encounter Orders Medications Ordered That Mo ht Not Have Been Administered Count Last Ordered Date First Ordered Date gadobutroL (GADAVIST PFS) so lution solution 1-15 mmol 1 09/15/2020 documented in this encounter Care Teams Trouble Clerk Relationship Specialty Start Date End Date Siena Jimenez PA [address] [place] [address] [place] [address] PCP - General 09/29/18 documented as of this encounter
--- OUTSIDE RECORDS SUMMARY | 2024-01-15 16:50 | XMS_ITS | Encounter Summary ---
Author Organization [facility] Address [address] [place] [address] Care Team Providers Care Industrial Technologist Name Role Phone Siena Jimenez Primary Care Provider + Reason for Visit * Reason Onset Date Comments Appointment Related 11/08/2020 Encounter Details Date Type Department Care Team (Late st Contact Info) Description 11/08/2020 Telephone [facility] - [address] [address] Parvez Wright MD [address] [place] [address] Appointment Related Social History Tobacco Use Types Packs/Day Years [...] encounter Miscellaneous Notes * Telephone Encounter - Adrienne Hassan - 11/08/2020 1615 EDT LMOM to schedule FUR from the Recall List. Deleted Recall. Mailed letter. Different provider/same pathway documented in this encounter Plan of Treatment Not on file documented as of this encounter Visit Diagnoses Not on filedocumented in this encounter Care Teams Industrial Technologist Relationship Specialty Start Date End Date Siena Jimenez PA [address] [place] [address] [place] [phone] PCP - General 09/29/18 documented as of this encounter
--- OUTSIDE RECORDS SUMMARY | 2024-01-15 16:50 | XMS_ITS | Encounter Summary ---
Author Organization [facility] Address [address] [place] [address] Care Team Providers Care Wildlife Management Professor Name Role Phone Siena Jimenez Primary Care Provider + Encounter Details Date Type Department Care Team (Late st Contact Info) Description 09/12/2023 Lab Requisition [facility] Pathology & Laboratory Medicine - [facility] [address] [place] [address] Outr Resulting Lab, Provider Social History Tobacco [...] Procedure Name Priority Date/Time Associated Diagnosis Comments QUANTIFERON MITOGEN (PERFORMABLE) Today 09/11/2023 11:59 EDT QUANTIFERON TB2 (PERFORMABLE) Today 09/11/2023 11:59 EDT QUANTIFERON TB1 (PERFORMABLE) Today 09/11/2023 11:59 EDT QUANTIFERON NIL (PERFORMABLE) Today 09/11/2023 11:59 EDT QUANTIFERON INTERPRETATION (PERFORMABLE) Today 09/11/2023 11:59 EDT QUANTIFERON TB GOLD PLUS Routine 09/11/2023 11:59 EDT documented in this encounter Results * QUANTIFERON INTERPRETATION (PERFORMABLE) (09/11/2023 11:59 EDT) Pathologist [facility] Quantiferon Interpretation Negative Negative 09/13/2023 12:01 EDT [facility] Comment:No interferon-gamma response to M. tuberculosis antigens was detected. ??Infection with M. tuberculosis is unlikely. A single negative result does not exclude infection with M. tuberculosis. ??In patients at high risk for M. tuberculosis infection, a second test should be considered. TB1 Ag minus Nil 0.09 IU/ml 09/13/19 12:01 EDT [facility] TB2 Ag minus Nil 0.11 IU/mL 09/13/19 12:01 EDT [facility] Blood VENOUS BLOOD / Unknown 09/11/2023 11:59 EDT 09/13/2023 11:55 EDT Provider Outr Resulting Lab IMMUNOLOGY A ND SEROLOGY ORDERABLES [facility] [address] [place] [id number] * QUANTIFERON MITOGEN (PERFORMABLE) (09/11/2023 11:59 EDT) Blood VENOUS BLOOD / Unknown 09/11/2023 11:59 EDT 09/12/2023 22:02 EDT Provider Outr Resulting Lab IMMUNOLOGY A ND SEROLOGY ORDERABLES [facility] [address] [place] [address] * QUANTIFERON TB2 (PERFORMABLE) (09/11/2023 11:59 EDT) Blood VENOUS BLOOD / Unknown 09/11/2023 11:59 EDT 09/12/2023 22:02 EDT Provider Outr Resulting Lab IMMUNOLOGY A ND SEROLOGY ORDERABLES Performing Organization Address City/[facility] Co de Phone Number [facility] [address] [place] [address] * QUANTIFERON TB1 (PERFORMABLE) (09/11/2023 11:59 EDT) Blood VENOUS BLOOD / Unknown 09/11/2023 11:59 EDT 09/12/2023 22:02 EDT Provider Outr Resulting Lab IMMUNOLOGY A ND SEROLOGY ORDERABLES Performing Organization Address City/[facility] Co de Phone Number [facility] [address] [place] [address] * QUANTIFERON NIL (PERFORMABLE) (09/11/2023 11:59 EDT) Blood VENOUS BLOOD / Unknown 09/11/2023 11:59 EDT 09/12/2023 22:02 EDT Provider Outr Resulting Lab IMMUNOLOGY A ND SEROLOGY ORDERABLES Performing Organization Address [facility] Co de Phone Number [facility] [address] [place] [phone] documented in this encounter Visit Diagnoses Not on filedocumented in this encounter Care Teams Wildlife Management Professor Relationship Specialty Start Date End Date Siena Jimenez PA [address] [place] [address] [place] [address] PCP - General 09/29/18 documented as of this encounter
--- OUTSIDE RECORDS SUMMARY | 2024-01-15 16:50 | XMS_ITS | Encounter Summary ---
Author Organization [facility] Address [address] [place] [address] Care Team Providers Care Brazer Furnace Name Role Phone Siena Jimenez Primary Care Provider + Encounter Details Date Type Department Care Team (Late st Contact Info) Description 06/08/2021 Lab Requisition [facility] Pathology & Laboratory Medicine - [facility] [address] [place] [address] Jono Mcdonnell MD [address] [phone] Encounter for other general examination Social History [...] Procedure Name Priority Date/Time Associated Diagnosis Comments SURGICAL PATHOLOGY Today 06/08/2021 13 :00 EDT documented in this encounter Results * SURGICAL PATHOLOGY (06/08/2021 13:00 EDT) Note to Patient The following pathology results have been interpreted by your pathologist and may be available to you before your health provider has had the opportunity to review them. Please allow time for your provider to receive these results and explore management options, if applicable. 06/14/2021 14:53 [facility] Final Diagnosis A. TERMINAL ILEUM, BIOPSY: - No significant pathologic abnormality B. COLON, RANDOM SITES, BIOPSY: - No significant pathologic abnormality 06/14/2021 14:53 [facility] Attestation By the signature below, the attending physician certifies that they have 1) personally conducted a gross and/or microscopic examination of the described specimen(s), and/or personally interpreted the results of laboratory testing of the described specimen(s), and 2) personally rendered or confirmed the above diagnosis. 06/14/2021 14:53 [facility] at 1453 Clinical History Abdominal pain 06/14/2021 14:53 [facility] Gross Description A. Received in formalin labelled with proper patient identification (initials L, C) and terminal ileum Bx are two wei focally brown tissues (0.5 x 0.2 x 0.1 cm and 0.4 x 0.1 x 0.1 cm). Entirely submitted in A1. B. Received in formalin labelled with proper patient identification (initials L, C) and random colon Bx's are 3 wei-white and wei focally brown tissues (0.7 x 0.3 x 0.1 cm to 0.2 x 0.1 x 0.1 cm). Entirely submitted in B1. KEDAR ORTIZ 06/09/2021 9:56 06/14/2021 14:53 [facility] Performing Lab [facility] 06/14/2021 14:53 [facility] Scanned Images 06/14/2021 14:53 EDT [facility] Tissue ENTIRE COLON / Unknown 06/08/2021 13:00 EDT 06/08/2021 21:34 EDT Tissue specimen (specimen) COLON STRUCTURE / Unknown 06/08/2021 13:00 EDT 06/08/2021 21:34 EDT Jono Mcdonnell MD PATHOLOGY [facility] [address] [place] [address] documented in this encounter Visit Diagnoses Diagnosis Encounter for other general examination documented in this encounter Care Teams Brazer Furnace Relationship Specialty Start Date End Date Siena Jimenez PA [address] [place] [address] [place] [address] PCP - General 09/29/18 documented as of this encounter
--- OUTSIDE RECORDS SUMMARY | 2024-01-15 16:50 | XMS_ITS | Encounter Summary ---
Author Organization [facility] Address [address] [place] [address] Care Team Providers Care Addictions Counselor Assistant Name Role Phone Siena Jimenez Primary Care Provider + Encounter Details Date Type Department Care Team (Late st Contact Info) Description 06/30/2020 Orders Only [facility] Endocrinology - [address] [id number] Parvez Wright MD [address] [place] [address] Amenorrhea, secondary; Hyperprolactinemia ([facility]-CMS) Social History Tobacco Use Types Packs/Day Years [...] End Da te cabergoline (DOSTINEX) 0.5 mg tabletIndications:Amenorrh ea, secondary,Hyperprolactinem ia (HCC-CMS) Take 1 Tab by mouth twice a week for 90 days. 24 Tab 1 06/30/2020 10/03/2020 documented in this encounter Plan of Treatment Not on file documented as of this encounter Visit Diagnoses Diagnosis Amenorrhea, secondary Absence of menstruation Hyperprolactinemia (HCC-CMS) Other and unspecified anterior pituitary hyperfunction documented in this encounter Discontinued Medications Medication Sig Discontinue Reason Start Date End Da te cabergoline (DOSTINEX) 0.5 mg tabletIndications:Ameno rrhea, secondary,Hyperprolacti nemia (HCC-CMS) TAKE 1/2 TABLET BY MOUTH TWO TIMES A WEEK ON SATURDAY AND SATURDAY Reorder 11/24/2019 06/30/2020 documented as of this encounter Care Teams Addictions Counselor Assistant Relationship Specialty Start Date End Date Siena Jimenez PA [address] [place] [address] [place] [address] PCP - General 09/29/18 documented as of this encounter
--- OUTSIDE RECORDS SUMMARY | 2024-01-15 16:51 | XMS_ITS | Encounter Summary ---
[place] [address] Care Team Providers Care Slip Dumper Name Role Phone Siena Jimenez Primary Care Provider + Encounter Details Date Type Department Care Team (Late st Contact Info) Description 09/12/2020 11:59 PM EDT [place]esthesia [place] [phone] Evan Bunn MD [facility] [place] [address] Adonay Armando MD [facility] [place] [address] Anesthesia Record Procedure Summary Procedure Name Responsible Anesthesiologist Anesthesia Start Time Anesthesia Stop Time TELEPHONE OFFICE VISIT Events No events on file. Meds * Agents No agents on file. * Blood No blood administrations on file. Lines, Drains, and Airways No LDAs on file. documented in this encounter Social History Tobacco Use Types Packs/Day Years Used Date Smoking Tobacco: Former Cigarettes Q uit: 11/02/2014 Smokeless Tobacco: Never Sex and Gender Information Value Date Recorded Sex Assigned at Not on file Gender Identity Not on file Sexual Orientation Not on file documented as of this encounter OR Notes * Anesthesia Preprocedure Evaluation - Evan Bunn MD - 09/12/2020 5:27 PM EDT Images from the original note were not included. Pre-Anesthesia Evaluation for: Rachana Stearns a 29 y.o. female. Patient Active Problem List Diagnosis ??? 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 Depression with anxiety ??? Dysmenorrhea ??? Chronic female pelvic pain ??? Hyperprolactinemia No past medical history on file. No past surgical history on file. Social History Tobacco Use ??? Smoking status: Former Smoker Quit date: 11/02/2014 Years since quittin.8 ??? Smokeless tobacco: Never Used Substance Use Topics ??? Alcohol use: Not on file Social History Substance and Sexual Activity Drug Use Not on file Allergies Allergen Reactions ??? Avocado Itching ??? Honey ??? Kiwi (Actinidia Chinensis) Medications: MAR and/or home medications have been reviewed. Physical Exam: Preprocedure Vitals Current as of 09/12/20 1727 No BP, pulse, respiration, SpO2, or temperature recorded. Height: Weight: BMI: IBW: Anesthesia Physical Exam Last Filed Perioperative Cognitive Screening None Anesthesia Plan: ASA 2 general, with a(n) intravenous induction Please see PAT note Region - Other Informed Consent: Plan discussed with resident and attending. Anesthesia Screening Note: Date and Time of Entry: 09/12/2020 5:28 PM Entered By: Evan Bunn MD Reason for Evaluation: OSC Anesthesia Clearance, PAT Protocol - Screening Trigger and Surgeon Request Hx of Anesthesia Problem: Pre-op OSC clearance, bicuspid aortic valve Screening Visit Type: Telephone Call Additional/Outside Records Requested? Did not request medical information from outside organization. Findings, Assessment and Plan: Rachana Stearns is a 29 y.o. female (89kg BMI 31) with a hx significant for concern for endometriosis presenting for diagnostic laparoscopy with Dr. Gillis. PMHx: - congenital bicuspid aortic valve - concern for endometriosis - h/o hyperprolactinemia (2016) - former smoker (quit 2014) Endorses occasional palpitations and lightheadedness; denies syncopal episodes, CP, SOB or URI. Activity prior to surgery: METS>4. Allergies: Allergies Allergen Reactions ??? Avocado Itching ??? Honey ??? 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 Anesthesia Hx: Pt denies prior anesthesia experience/airway record, denies any family hx of complications with anesthesia. Cardiac: EKG: none in record ECHO (08/2020): LVEF 65%, no wma, RV mildly dilated with normal function, PASP 20mmHg, septum normalsize, LVOT 2.4cm, aortic valve bicuspid, aortic root 3.2cm, mild-mod AI, mild-mod MR (ERO 0.1cm^2),mild TR. C/w prior echo 06/2018. AP: Screening CBC to r/o anemia given palpitations/lightheadedness; bicuspid AV and echo stable and reassuring. Consider triple PONV ppx given notable history of car/motion sickness. Appears optimized for surgery. OSC clearance form and telephone consent obtained and scanned in chart. documented in this encounter Plan of Treatment Upcoming Encounters Date Type Department Care Team (Late st Contact Info) Description 01/22/2024 3:30 PM EDT Office [place] [address] Parris Huntley MD [facility] [place] [address] documented as of this encounter Visit Diagnoses Not on filedocumented in this encounter Care Teams Slip Dumper Relationship Specialty Start Date End Date Siena Jimenez PA [address] [place] [address] [place] [address] PCP - General Internal Medicine 08/03/20 01/15/23 documented as of this encounter
--- OUTSIDE RECORDS SUMMARY | 2024-01-15 16:51 | XMS_ITS | Encounter Summary ---
Author Organization [facility] Address [address] [place] [address] Care Team Providers Care Motion Picture Actor Name Role Phone Shelby Pastor MD Primary Care Provider +1- [phone] Encounter Details Date Type Department Care Team (Late st Contact Info) Description 08/24/2011 11:12 EDT - 08/24/2011 23:59 EDT Hospital Encounter [address] [address] Kyara Lund PA-C [address] [facility], [address] [place] [phone] Discharge Disposition: Home or Self Care Social History Tobacco Use Types Packs/Day Years Used Date Smoking Tobacco: Never Alcohol Use Standard Drinks/Week Comments [...] tablet Take 10 mg by mouth daily. methocarbamol (ROBAXIN) 500 mg tablet Take 1-2 Tabs by mouth every 8 hours as needed (muscle spasms). 80 Tab 0 07/24/2011 10/24/2011 oxycodone (ROXICODONE) 5 mg immediate release tablet Take 1 Tab by mouth every 4 hours as needed for Pain (discomfort). 60 Tab 0 07/24/2011 10/24/2011 documented as of this encounter Discharge Disposition Disposition Code Departure Means Destination Home or Self Long Term documented in this encounter Plan of Treatment Not on file documented as of this encounter Visit Diagnoses Not on filedocumented in this encounter Care Teams Motion Picture Actor Relationship Specialty Start Date End Date Shelby Pastor MD [address] [address] PCP - General 06/28/11 09/28/18 documented as of this encounter
--- OUTSIDE RECORDS SUMMARY | 2024-01-15 16:51 | XMS_ITS | Encounter Summary ---
Author Organization [facility] Address [address] [place] [address] Care Team Providers Care Drug Abuse Counselor Name Role Phone Shelby Pastor MD Primary Care Provider +1- [phone] Reason for Referral * Radiology Services (Routine/Next Available) - Closed Specialty Diagnoses / Procedures Referred By Contac t Referred To Contact Diagnoses Closed fracture of lumbar vertebra without mention of spinal cord injury Procedures L SPINE 2-3 VIEWS Kyara Lund PA-C [address] [place] [phone] Referral ID Status Reason Start Date Expiration Date Visits Re quested Visits Authorized [id number] Closed 10/23/2011 1 1 Encounter Details Date Type Department Care Team (Late st Contact Info) Description 10/23/2011 Orders Only [facility] Neurosurgery - [address] [address] Kyara Lund PA-C [address] [place] [phone] Fx lumbar vertebra-closed (Primary Dx) Social History Tobacco Use Types Packs/Day Years [...] Procedure Name Priority Date/Time Associated Diagnosis Comments L SPINE 2-3 VIEWS Routine 10/24/2011 10: 21 EDT Fx lumbar vertebra-closed documented in this encounter Results * L SPINE 2-3 VIEWS (10/24/2011 10:21 EDT) Anatomical Region Laterality Modality Other 10/24/2011 10:2 1 EDT 10/24/2011 15:59 EDT Narrative 10/24/2011 15:59 EDT LUMBAR SPINE 2 VIEWS October 24, 2011 Indication: L2 fracture. Comparison: September 25, 2011. Technique: AP and lateral views of the lumbar spine were obtained. Findings: There is a slight levoscoliotic curvature which is convex at about L2-L3. No tonia or retrolisthesis is identified. Compression fracture of the superior endplate of L2 is noted. There is less than 25% anterior height loss. Degree of height loss is unchanged from the prior study. Vertebral body heights are otherwise preserved. Disc space heights are well-maintained. Procedure Note 10/24/2011 LUMBAR SPINE 2 VIEWS October 24, 2011 Indication: L2 fracture. Comparison: September 25, 2011. Technique: AP and lateral views of the lumbar spine were obtained. Findings: There is a slight levoscoliotic curvature which is convex at about L2-L3. No tonia or retrolisthesis is identified. Compression fracture of the superior endplate of L2 is noted. There is less than 25% anterior height loss. Degree of height loss is unchanged from the prior study. Vertebral body heights are otherwise preserved. Disc space heights are well-maintained. Kyara Lund PA-C IMG DIAGNOS TIC IMAGING ORDERABLES documented in this encounter Visit Diagnoses Diagnosis Closed fracture of lumbar vertebra without mention of spinal cord injury- Primary documented in this encounter Care Teams Drug Abuse Counselor Relationship Specialty Start Date End Date Shelby Pastor MD [address] [address] PCP - General 06/28/11 09/28/18 documented as of this encounter
--- OUTSIDE RECORDS SUMMARY | 2024-01-15 16:51 | XMS_ITS | Encounter Summary ---
[place] [address] Care Team Providers Care Polymerization Kettle Operator Name Role Phone Siena Jimenez Primary Care Provider + Reason for Visit * Auth/Cert Specialty Diagnoses / Procedures Referred By Raza gerard Referred To Contact Diagnoses 29 yo with dysmenorrhea Procedures PRO LAP, DIAGNOSTIC ABDOMEN LAPAROSCOPY, DIAGNOSTIC, ABDOMEN (WRVU 5.14) Referral ID Status Reason Start Date Expiration Date Visits Re quested Visits Authorized [id number] 1 1 Encounter Details Date Type Department Care Team (Late st Contact Info) Description 09/23/2020 8:30 AM EDT - 09/23/2020 10:01 AM EDT Surgery [facility] [place] [address] Shakila Mueller MD [facility] OBSTETRICS [place] [address] LAPAROSCOPY, DIAGNOSTIC, ABDOMEN (WRVU 5.14) Social History Tobacco Use Types Packs/Day Years Used Date Smoking Tobacco: Former Cigarettes Q uit: 11/02/2014 Smokeless Tobacco: Never Sex and Gender Information Value Date Recorded Sex Assigned at Not on file Gender Identity Not on file Sexual Orientation Not on file documented as of this encounter Last Filed Vital Signs Vital Sign Reading Time Taken Comments Blood Pressure 121/75 09/23/2020 10:00 AM EDT Pulse 62 09/23/2020 10:00 AM EDT Temperature 36 ??C (96.8 ??F) 09/23/2020 9:55 AM EDT Respiratory Rate 20 09/23/2020 9:55 AM EDT Oxygen Saturation 100% 09/23/2020 10:00 AM EDT Inhaled Oxygen Concentration - - Weight 90.7 kg (200 lb) 09/23/2020 7:47 AM EDT Height 170.2 cm (5' 7) 09/23/2020 7:47 AM EDT Body Mass Index 31.32 09/23/2020 7:47 AM EDT documented in this encounter Discharge Instructions * Discharge Instructions* Gisell Dickerson, RN - 09/23/2020 7:42 AM EDT General Anesthesia Discharge Instructions Go home and rest. You may be sleepy for several hours. Take it easy as sudden position changes may cause nausea and/or dizziness. Use caution on stairs. Do not smoke if you are alone. Follow a light to regular diet as tolerated today. If nausea occurs, start with clear liquids, and progress slowly to a regular diet. Do not drive, operate machinery, drink alcoholic beverages or make any legal decisions after havinggeneral anesthesia. The medications given change your reaction time and alter your judgement. IV site -- slight redness is normal, you can use warm compresses. If tenderness and redness increases or foul drainage occurs, please contact your M.D. Patients who have had endotracheal tubes/LMA (tubes used by the anesthesia staff to ensure a safe airway during your operation) may have a sore throat. This is normal and cold liquids or soothing lozenges will help ease this discomfort. Narcotic pain medications can cause constipation, please ask the surgeons office what they recommend for prevention of this. Some non-pharmaceutical means of constipation prevention include increasing intake of fluids, eating more fruits and vegetables as well as fruit juices. If you are uncomfortable and/or unable to urinate within 8 hours of discharge and it is before 5 pm, call your physician. If it is after 5pm go to the closest emergency room or call the hospital pneumatic systems operator at [phone] and ask for physician convention services director covering for your physician. Questions or problems after 5pm or on a weekend: Call the [facility] pneumatic systems operator at and ask for the physician convention services director covering for your doctor. [facility] will be closed from 5:30 pm on Saturday09/23/2020 until 06:00 am on Saturday09/27/2020. We will contact you on Saturday09/27/2020 to see how you are progressing. If you have any questions or concerns regarding your procedure during this time, please call the hospital pneumatic systems operator at [phone] and ask for the physician convention services director covering your surgeon. * Patient Instructions* Najma Leyva N - 09/22/2020 9:10 PM EDT Images from the original note were not included. PATIENT DISCHARGE INSTRUCTIONS Follow up: Our office will call you to set up a follow up visit -if you do not hear from us within a few days,please call to set up a visit in 1-2 months [facility] Department: Call your doctor if you develop: --A fever over 101 degrees --Severe pain --Heavy vaginal bleeding --Increasing pain, redness, or discharge at your incisions Activity level: No heavy lifting, pushing or pulling for 2 weeks, nothing greater than 10lbs. Diet: You may resume your regular diet. Be sure you drink plenty of fluids. Please use lynne-colace (or colace) 1-2 tablets twice daily for the entire time that you are taking pain medication to keep your bowel movements soft and regular. If you are constipated or have not had a bowel movement in 3 days, please use milk of magnesia (or miralax) as directed over the counter. Driving: Do not drive until you are off of all narcotic medications and you are not feeling pain; usually about 2 weeks. Shower/Bath: Showering is fine. Short baths are OK but you should avoid having any laparoscopic abdominal incision submerged for more than 10-15 minutes for the next 2 weeks. Wound Care: Your incisions are closed with dissolvable stitches and surgical glue. The glue will dissolve on its own over time - do not pick at or rub the glue. The stitches do not need to be removed- they will dissolve on their own. Pain medications include ibuprofen (Advil/Motrin), acetaminophen (Tylenol), and oxycodone ??? Please use ibuprofen 600 mg every 6 hours with food around the clock for the next several days and then after that use it only as needed. ??? You may take Tylenol (acetaminophen) over the counter as prescribed, 650mg every 6 hours as needed, for the first two days, you may want to schedule this, every 6 hours. Do not exceed 3000mg of Tylenol in any 24 hour period. You can take ibuprofen and Tylenol at the same time as the two medications work differently. ??? Please use the oxycodone every 4-6 hours as needed for pain that breaks through the ibuprofenand acetaminophen. Please take your medication exactly as prescribed. Read all instructions that come with your medication. ?? Using narcotic pain medication (such as oxycodone, hydromorphone (Dilaudid), morphine, fentanyl,or tramadol) may cause addiction. While addiction is more common in people with a personal or family history of addiction, it can occur in anyone. ?? Taking more than the prescribed amount of medication or using with alcohol or other drugs can cause you to stop breathing resulting in coma, brain damage, or . ?? Opioids (oxycodone, hydromorphone/Dilaudid, morphine, fentanyl, tramadol) can slow reaction time, cause drowsiness, or cloud judgement. It is unsafe for you to drive or operate heavy machinery while taking this medication. ?? Opioids (oxycodone, hydromorphone/Dilaudid, morphine, fentanyl, tramadol) are at risk of being diverted by anyone with access to your home. Opioids should be stored in a safe and secure place, such as a locked cabinet or safe. ?? Unused opioids (oxycodone, hydromorphone/Dilaudid, morphine, fentanyl, tramadol) should be disposed of according to the label or patient information. If there are no specific instructions, medications may be returned to a take- back location as documented below. documented in this encounter Medications at Time of Discharge Medication Sig Dispensed Refills Start Date End Date citalopram (CeleXA) 20 mg Tablet 20 mg. 08/11/2020 hydrOXYzine (Atarax) 25 mg Tablet Take 25 mg by mouth as needed. 06/07/2020 citalopram (CELEXA) 10 mg Tablet Take 30 mg by mouth daily. oxyCODONE (Roxicodone) 5 mg Tablet Take 1 tablet by mouth every 4 hours as needed for Pain. 5 tablet 09/23/2020 01/16/2023 acetaminophen (Tylenol) 325 mg Tablet Take 2 tablets by mouth every 6 hours as needed for Pain. 30 tablet 1 09/23/2020 01/16/2023 ibuprofen (Advil;Motrin) 200 mg Tablet Take 600 mg by mouth every 6 hours as needed for Pain. OTC 01/16/2023 traMADoL (Ultram) 50 mg Tablet Take 50 mg by mouth as needed. 08/01/2020 01/16/2023 cabergoline (DOSTINEX) 0.5 mg TabletIndications:Hyper prolactinemia Take 0.5 tablets by mouth twice a week. 10 tablet 11 2016 12/16/2021 documented as of this encounter Progress Notes * Latesha Huff RN - 09/23/2020 10:31 AM EDT Pt awakens from anesthesia,becomes tearful upon learning outcome of procedure. I don't get it. I'mnot crazy. Pt's father at bedside. Tolerating sips water. Trochar sites x 2 CDI, lynne-pad in place. Pt reports vaginal soreness 07/02. Heat pack applied to abdomen. 1115: All D/C instructions reviewed with pt and her father; both verbalized understanding. VSS. Pt ambulated to bathroom, urinated small quantity. Scant bloody vaginal discharge, abdominal trochar sites CDI. Pt reports tolerable discomfort, denies nausea, heat pack provided for ride home. Patient ambulated to car for discharge accompanied by [facility] staff member. * Shannon Salvador RN - 09/16/2020 3:45 PM EDT Patient states that they and their escort for the day of surgery have had the Covid vaccine. They also deny any fever, cough, SOB or any other illness in the last 14 days. Patient informed of procedure to be followed upon arrival to the [facility]. That being, COVID questions will be asked again, temperature will be taken, patient and caregiver/cdl b driver will be given a mask to wear the entire time they are in the [facility] building. 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 Grissom and Dr. Gillis on 09/05/2020. Consents were reviewed and signed. (X) Condition unchanged since H&P originally performed. Interval Note: Rachana Stearns is a 29 y.o. patient presenting for a pre-op visit for a scheduled diagnostic laparoscopy with possible treatment of endometriosis and chromopertubation, in the setting pelvic pain.Her PMH is significant for a prolactinoma treated with cabergoline, and a congenital bicuspid aortic valve. Not on hormonal treatment now, as OCPs have worsened symptoms. Patient reports that her health has not changed since her preop visit. She still complains of right-sided, cyclic pelvic pain. She recently received a brain MRI with [facility] neurology - both a cyst and prolactinoma were visualized. She denies any new illnesses, hospitalizations, or medications. She desires to proceed with the planned procedure. Denies lightheadedness, shortness of breath, chest pain, nausea/vomiting/diarrhea, abdominal pain, leg cramping. Plan: Proceed with scheduled procedure ??? Antibiotics - NA ??? DVT prophylaxis - SCDs ??? She has tolerated Tylenol and ibuprofen in the past. Her preferred pharmacy is [facility] in [place], [place]. ??? Surgical consent reviewed ??? ORT and opioid consent reviewed Discussed and seen with Dr. Mueller. Vincent Kaur MD, PGY1 Obstetrics and Gynecology 09/23/2020 Associated attestation - Shakila Mueller MD - 09/23/2020 9:42 AM EDT I have seen the patient and reviewed Dr. Perez's above history and I agree with the details as written. The assessment and plan were formulated in discussion with me and I agree with them as documented. Chronic pelvic pain, waxes and wanes intensity Continued on cabergoline for hyperprolactinemia Not currently on hormonal management / control Does not want to be amenorrheic as that was a hallmark of her hyperprolactinemia Will schedule extended f/u to discuss CPP management after surgery Shakila Mueller MD documented in this encounter Miscellaneous Notes * Brief Op Note - Shakila Mueller MD - 09/23/2020 9:42 AM EDT Brief Operative Note Patient Name: Rachana Stearns : [id number] MR#: [id number] Case Date: 09/23/2020 Surgeon: Surgeon(s) and Role: * Shakila Mueller MD - Primary * Najma Leyva MD - Resident * Vincent Kaur MD - Resident Preoperative diagnosis: 29 yo with dysmenorrhea, h/o chlamydia Postoperative diagnosis: 29 yo with dysmenorrhea, h/o chlamydia Procedure(s) (LRB): LAPAROSCOPY, DIAGNOSTIC, ABDOMEN (WRVU 5.14) (Midline) CHROMOTUBATION, INCLUDING MATERIALS (WRVU 1.06) (N/A) Procedure: Diagnostic laparoscopy Chromopertubation Anesthesia: General, 25% Marcaine in port sites Findings: 1) EUA: Small AV, mobile uterus, no US nodularity, no cervical deviation 2) Laparoscopy: Normal upper abdominal survey, smooth diaphragm without evidence of endometriosis, full pelvic survey including saline submersion without any evidence of endometriosis, no vesicles, no powder burn lesions. Normal, mobile bilateral tubes and ovaries. Mobile uterus. No uterosacral scaring or tethering. Physiologic sigmoid adhesion. 3) Chromopertubation with dilute methylene blue with bilateral spill from Complications: None Estimated Blood Loss: 1 cc Specimens removed during surgery: None Fluids: Intraprocedure Crystalloid Total Intake lactated ringers infusion 1200.00 mL Total Intake 1200 mL PRBCs: none (See Anesthesia Record/Report for Other Blood Products) Urine Output: 400 cc clear, yellow urine Drains: Sanders, removed at close of case Disposition: awakened from anesthesia, extubated and taken to the recovery room in a stable condition, having suffered no apparent untoward event. Condition: doing well without problems (Please see the Surgical Encounter Summary for any Implant and Specimen details pertinent to this patient.) Infection Bundle used? N/A Shakila Mueller MD * Op Note - Najma Leyva - 09/23/2020 9:02 AM EDT Operative Note ?? Patient Name: Rachana Stearns : [id number] MR#: [id number] ?? Case Date: 09/23/2020 ?? Surgeon: Surgeon(s) and Role: * Shakila Mueller MD - Primary * Najma Leyva MD - Resident * Vincent Kaur MD - Resident ?? Preoperative diagnosis: 29 yo with dysmenorrhea, h/o chlamydia ?? Postoperative diagnosis: 29 yo with dysmenorrhea, h/o chlamydia ?? Procedure(s) (LRB): LAPAROSCOPY, DIAGNOSTIC, ABDOMEN (WRVU 5.14) (Midline) CHROMOTUBATION, INCLUDING MATERIALS (WRVU 1.06) (N/A) ?? Procedure: Diagnostic laparoscopy Chromopertubation ?? Anesthesia: General, 25% Marcaine in port sites ?? Findings: 1) EUA: Small AV, mobile uterus, no US nodularity, no cervical deviation 2) Laparoscopy: Normal upper abdominal survey, smooth diaphragm without evidence of endometriosis, full pelvic survey including saline submersion without any evidence of endometriosis, no vesicles, no powder burn lesions. Normal, mobile bilateral tubes and ovaries. Mobile uterus. No uterosacral scaring or tethering. Physiologic sigmoid adhesion. 3) Chromopertubation with dilute methylene blue with bilateral spill from ?? Complications: None ?? Estimated Blood Loss: 1 cc ?? Specimens removed during surgery: None Fluids: Intraprocedure Crystalloid Total Intake lactated ringers infusion 1200.00 mL Total Intake 1200 mL PRBCs: none (See Anesthesia Record/Report for Other Blood Products) Urine Output: 400 cc clear, yellow urine ?? Drains: Sanders, removed at close of case ?? Disposition: awakened from anesthesia, extubated and taken to the recovery room in a stable condition, having suffered no apparent untoward event. ?? Condition: doing well without problems ?? (Please see the Surgical Encounter Summary for any Implant and Specimen details pertinent to this patient.) ?? Infection Bundle used? N/A HPI Rachana Stearns is a 29 y.o. woman with ongoing pelvic pain and question of endometriosis whopresents for a diagnostic laparoscopy today, as well as chromopertubation. The consent was reviewedwith the patient, including the risks of bleeding, infection, and damage to surrounding structures.The patient had the opportunity to answer questions, all of which were answered.The patient wished t o proceed. Procedure: She was taken to the OR with IV fluids running and pneumatic compression stockings were applied to the lower extremities. General anesthesia was obtained without difficulty. The patient was placed in the dorsal lithotomy position in [facility] in a neurologically neutral position. Examination under anesthesia revealed a normal-sized, anteverted uterus. She was then prepped and draped in the regular sterile fashion. A time out was performed and all members of the team were in agreement to proceed. A sanders catheter was placed and drained to gravity during the case. The uterus sounded to 7cm and aKroner manipulator was placed. 1% lidocaine was injected into the base of the umbilicus and a 5mm vertical incision made in the base of the umbilicus. The Veress needle was introduced into the peritoneal cavity at a straight anglewithout difficulty. A saline drop test was performed to validate intraperitoneal placement. The pneumoperitoneum was established with CO2 gas, to a pressure of 15 mm of Hg. A 5 mm trocar was insertedinto the abdomen. Intra-abdominal placement was confirmed with the laparoscope. An additional 5mm port was placed in the RLQ after infiltrating with 1% lidocaine. Trendelenberg postion was obtained to facilitate moving the bowel and omentum out of the pelvis. Anintra-abdominal survey revealed normal-appearing liver and stomach and lack of any visceral or vascular injury. There were no signs of endometrioid deposits on the diaphragm, nor the bladder, posterior cul-de-sac or ovarian fossa. The pelvic anatomy was as noted above. 4mL of methylene blue diluted in normal saline (0.5mL in 50mL) was introduced into the uterine cavity through the Kroner manipulator and was seen flowing freely from both fallopian tubes, confirming patency bilaterally. All instruments were removed from the vagina along with removal of the sanders catheter. Both trocarswere removed from the abdomen. The skin was closed with 4-0 Monocryl in a subcuticular fashion. Dermabond was placed over the incisions. The patient tolerated the procedure well. All counts were correct times two. The patient was taken to the recovery room in stable condition. Dr. Mueller was present for the entire procedure without any conflicting clinical responsibilities. Najma Leyva MD, PGY4 Obstetrics and Gynecology 09/23/2020 Associated attestation - Shakila Mueller MD - 09/25/2020 11:17 AM EDT Attestation: Case Date: 09/23/2020 I was present and I participated during the entire procedure (does not need to include opening and closing). Shakila Mueller MD 09/25/2020 documented in this encounter Plan of Treatment Upcoming Encounters Date Type Department Care Team (Late st Contact Info) Description 01/22/2024 3:30 PM EDT Office Visit [place] [address] Parris Huntley MD [facility] [place] [address] documented as of this encounter Procedures Procedure Name Priority Date/Time Associated Diagnosis Comments CHROMOTUBATION, INCLUDING MATERIALS Routine 09/23/2020 9:43 AM EDT Chronic pelvic pain in female Reopen Fallopian Tube, Chromotubation (25089) 09/23/2020 8:29 AM EDT Chronic pelvic pain in female LAPAROSCOPY, DIAGNOSTIC, ABDOMEN (WRVU 5.14) 09/23/2020 8:29 AM EDT Chronic pelvic pain in female LAPAROSCOPY, DIAGNOSTIC Routine 09/24/19 7:35 AM EDT Chronic pelvic pain in female POCT URINE Routine 09/23/2020 documented in this encounter Results * POCT urine (09/23/2020) POC Urine HCG Negative Negative - Negative POC Control Internal Controls Acceptable 09/23/2020 Shakila Mueller MD POINT OF CARE TEST O RDERAGINI documented in this encounter Visit Diagnoses Diagnosis Chronic pelvic pain in female- Primary Unspecified symptom associated with female genital organs Chronic pelvic pain in female Unspecified symptom associated with female genital organs documented in this encounter Administered Medications Inactive Administered Medications - up to 3 most recent administrations Medication Order MAR Action Action Date Dose Rate Site BUpivacaine (pf) (Marcaine) (2.5 mg/mL) 0.25% injection ONCE PRN, Starting on Sat09/23/20 at 0921, Until Sat09/23/20 at 1346, Intra-Operative (Intra-Procedure), Routine Given 09/23/2020 9:21 AM EDT 4 mLs 19- Surgical Site fentaNYL (pf) (50 mcg/mL) multi-dose injection 25-50 mcg 25-50 mcg, Intravenous, EVERY 5 MIN PRN, Starting on Sat09/23/20 at 1007, Until Sat09/23/20 at 1346, Pain, Give 25 mcg every 5 minutes PRN for mild to moderate pain (1-5) Give 50 mcg every 5 minutes PRN for moderate to severe pain (6-10). Hold for respiratory rate less than 10 per minute. Maximum dose 200 mcg over one hour, including OR administration. If ordered with HYDROmorphone or morphine, give HYDROmorphone or morphine first and use fentaNYL for breakthrough pain., PACU Recovery, Routine lactated ringers infusion 1,000 mL, at 100 mL/hr, Intravenous, CONTINUOUS, Starting on Sat09/23/20 at 0800, Until Sat09/23/20 at 1346, Day of Surgery (Day of Procedure) New Bag 09/23/2020 9:24 AM EDT New Bag 09/23/2020 8:28 AM EDT New Bag 09/23/2020 8:00 AM EDT 1,000 mLs 100 mL/hr lidocaine (Xylocaine) 1% (10 mg/mL) injection 3 mg 3 mg (0.3 mL), Subcutaneous, ONCE PRN, 1 dose, Starting on Sat09/23/20 at 0736, Until Sat09/23/20 at 1346, for discomfort with PIV insertion, Day of Surgery (Day of Procedure), Routine methylene blue (Provayblue) (5 mg/mL) injection ONCE PRN, Starting on Sat09/23/20 at 0902, Until Sat09/23/20 at 1346, Intra-Operative (Intra-Procedure) Given 09/23/2020 9:02 AM EDT 0.5 mLs 19- Surgical Site naloxone (Narcan) (0.4 mg/mL) injection 0.04 mg 0.04 mg, Intravenous, EVERY 5 MIN PRN, 3 doses, Starting on Sat09/23/20 at 1007, Until Sat09/23/20 at 1346, Opioid Reversal, for respiratory rate less than 6 or unresponsive., May repeat every 5 minutes to increase respiratory rate. DO NOT exceed 0.12 mg total dose. Notify anesthesia immediately if administered., PACU Recovery, Routine ondansetron (pf) (Zofran) (2 mg/mL) injection 4 mg 4 mg, Intravenous, EVERY 30 MIN PRN, 2 doses, Starting on Sat09/23/20 at 1007, Until Sat09/23/20 at 1346, Nausea, Maximum total dose of 8 mg (including OR administration). If multiple antiemetics ordered, use ondansetron first and if ineffective use prochlorperazine second and if ineffective use promethazine, PACU Recovery promethazine (Phenergan) (25 mg/mL) injection 6.25 mg 6.25 mg, Intravenous, EVERY 30 MIN PRN, Nausea, Starting on Sat09/23/20 at 1007, 2 doses, Until Sat09/23/20 at 1346, Maximum total dose of 12.5 mg (including OR administration). VESICANT - Dilute with a minimum of 10 mL sodium chloride 0.9%. LARGE VEIN only. Inject over 10 minutes into the farthest port of a running IV infusion. Remain with the patient and STOP infusion immediately if patient reports burning. Avoid extravasation. If multiple antiemetics are ordered, use ondansetron first and if ineffective use prochlorperazine second and if ineffective use promethazine., PACU Recovery sodium chloride 0.9 % (flush) flush 5-20 mL 5-20 mL, Intravenous, EVERY 1 MIN PRN, Starting on Sat09/23/20 at 0736, Until Sat09/23/20 at 1346, flush, Flush pertains to all indwelling lines. Flush per protocol found in the job aid using the link provided on this medication record., Day of Surgery (Day of Procedure), Routine documented in this encounter Active and Recently Administered Medications Times are shown in EDT. Continuous Medication Order 09/21/2020 09/22/2020 09/23/2020 lactated ringers infusion 1,000 mL, at 100 mL/hr, Intravenous, CONTINUOUS, Starting on Sat09/23/20 at 0800, Until Sat09/23/20 at 1346, Day of Surgery (Day of Procedure) 0800 (New Bag - Prov ider: Gisell Dickerson RN)0827 (Paused - Provider: Leah Spencer CRNA - Comment: Switch to gravity)0828 (New Bag - Provider: Leah Spencer CRNA)0924 (New Bag - Provider: Leah Spencer CRNA)0940 (Anesthesia Volume Adjustment - Provider: Leah Spencer CRNA) lactated ringers infusion 1,000 mL, at 100 mL/hr, Intravenous, CONTINUOUS, Starting on Sat09/23/20 at 1015, Until Sat09/23/20 at 1346 1015 (Due) PRN Medication Order 09/21/2020 09/22/2020 09/23/2020 acetaminophen (Tylenol) tablet 650 mg 650 mg, Oral, EVERY 6 HOURS PRN, Starting on Sat09/23/20 at 0950, Until Sat09/23/20 at 1346, Pain, If multiple pain medications ordered, use acetaminophen first. Maximum dose of acetaminophen is 4000 mg from all sources in 24 hours. When ordered for pain, acetaminophen should be given even when other ordered pain medications are indicated., Routine BUpivacaine (pf) (Marcaine) (2.5 mg/mL) 0.25% injection (CANCELED) ONCE PRN, Starting on Sat09/23/20 at 0921, Until Sat09/23/20 at 1346, Intra-Operative (Intra-Procedure), Routine 0921 (Given - Provid er: Shakila Mueller MD) fentaNYL (pf) (50 mcg/mL) multi-dose injection 25-50 mcg 25-50 mcg, Intravenous, EVERY 5 MIN PRN, Starting on Sat09/23/20 at 1007, Until Sat09/23/20 at 1346, Pain, Give 25 mcg every 5 minutes PRN for mild to moderate pain (1-5) Give 50 mcg every 5 minutes PRN for moderate to severe pain (6-10). Hold for respiratory rate less than 10 per minute. Maximum dose 200 mcg over one hour, including OR administration. If ordered with HYDROmorphone or morphine, give HYDROmorphone or morphine first and use fentaNYL for breakthrough pain., PACU Recovery, Routine lidocaine (Xylocaine) 1% (10 mg/mL) injection 3 mg 3 mg (0.3 mL), Subcutaneous, ONCE PRN, 1 dose, Starting on Sat09/23/20 at 0736, Until Sat09/23/20 at 1346, for discomfort with PIV insertion, Day of Surgery (Day of Procedure), Routine methylene blue (Provayblue) (5 mg/mL) injection (CANCELED) ONCE PRN, Starting on Sat09/23/20 at 0902, Until Sat09/23/20 at 1346, Intra-Operative (Intra-Procedure) 0902 (Given - Provid er: Shakila Mueller MD - Comment: On surgical field, diluted with saline, for surgeon's use.) naloxone (Narcan) (0.4 mg/mL) injection 0.04 mg 0.04 mg, Intravenous, EVERY 5 MIN PRN, 3 doses, Starting on Sat09/23/20 at 1007, Until Sat09/23/20 at 1346, Opioid Reversal, for respiratory rate less than 6 or unresponsive., May repeat every 5 minutes to increase respiratory rate. DO NOT exceed 0.12 mg total dose. Notify anesthesia immediately if administered., PACU Recovery, Routine ondansetron (pf) (Zofran) (2 mg/mL) injection 4 mg 4 mg, Intravenous, EVERY 30 MIN PRN, 2 doses, Starting on Sat09/23/20 at 1007, Until Sat09/23/20 at 1346, Nausea, Maximum total dose of 8 mg (including OR administration). If multiple antiemetics ordered, use ondansetron first and if ineffective use prochlorperazine second and if ineffective use promethazine, PACU Recovery oxyCODONE (Roxicodone) tablet 5-10 mg 5-10 mg, Oral, EVERY 3 HOURS PRN, Starting on Sat09/23/20 at 0950, Until Sat09/23/20 at 1346, Pain, - If multiple pain medications ordered, use acetaminophen first. - If pain not relieved by acetaminophen first, administer oxycodone. - Initial dose 5 mg. - If pain control not adequate in 60 minutes, give additional 5 mg., Routine promethazine (Phenergan) (25 mg/mL) injection 6.25 mg 6.25 mg, Intravenous, EVERY 30 MIN PRN, Nausea, Starting on Sat09/23/20 at 1007, 2 doses, Until Sat09/23/20 at 1346, Maximum total dose of 12.5 mg (including OR administration). VESICANT - Dilute with a minimum of 10 mL sodium chloride 0.9%. LARGE VEIN only. Inject over 10 minutes into the farthest port of a running IV infusion. Remain with the patient and STOP infusion immediately if patient reports burning. Avoid extravasation. If multiple antiemetics are ordered, use ondansetron first and if ineffective use prochlorperazine second and if ineffective use promethazine., PACU Recovery sodium chloride 0.9 % (flush) flush 5-20 mL 5-20 mL, Intravenous, EVERY 1 MIN PRN, Starting on Sat09/23/20 at 0736, Until Sat09/23/20 at 1346, flush, Flush pertains to all indwelling lines. Flush per protocol found in the job aid using the link provided on this medication record., Day of Surgery (Day of Procedure), Routine documented in this encounter Care Teams Polymerization Kettle Operator Relationship Specialty Start Date End Date Siena Jimenez PA [address] [place] [address] [place] [address] PCP - General Internal Medicine 08/03/20 01/15/23 documented as of this encounter
--- OUTSIDE RECORDS SUMMARY | 2024-01-15 16:51 | XMS_ITS | Encounter Summary ---
Author Organization [facility] Address [address] [place] [address] Care Team Providers Care Cardboard Cutter Name Role Phone Shelby Pastor MD Primary Care Provider [phone] Reason for Visit * Reason Comments Follow-up 1 mo fu xrays before Encounter Details Date Type Department Care Team (Late st Contact Info) Description 09/25/2011 11:30 EDT Office Visit [facility] [address] [place] [address] Kyara Lund PA-C [address] [place] [id number] Fracture of second lumbar vertebra (CMS-HCC) (HCC-CMS) (Primary Dx) Social History Tobacco Use Types [...] Sign Reading Time Taken Comments Blood Pressure 127/84 09/25/2011 1135 EDT Pulse 82 09/25/2011 1135 EDT Temperature - - Respiratory Rate 16 09/25/2011 1135 EDT Oxygen Saturation - - Inhaled Oxygen Concentration - - Weight 83 kg (183 lb) 09/25/2011 1135 EDT Height 170.2 cm (5' 7) 09/25/2011 1135 EDT Body Mass Index 28.66 09/25/2011 1135 EDT documented in this encounter Functional Status Cognitive Status Response Date of Assessm ent Because of a physical, menta l, or emotional condition, do you have serious difficulty concentrating, remembering, or making decisions? (5 years old or older) Yes 06/28/2011 documented as of this encounter Progress Notes * Kyara Lund, JB - 09/25/[address] Shelby Pastor. Put Dr Barclay's name on the signature line. Dear Dr Pastor: I saw Mirta Stearns back in our neurosurgical clinic today in followup. As you know, we have been following her for an L2 fracture. She has been treated in a brace for 3 months and is being seen back today for her second to last visit. She states that her pain has decreased. She is fully involved in physical therapy. She is no longer using a cane and feels that she has improved. Objective: Vital signs: Blood pressure 127/84, pulse 82, respirations 16. The patient is awake, alert and oriented. She is in no apparent distress. Her gait is nonantalgic. Her strength is grossly full in all four extremities. Bulk and tone are normal. Skin is without rashes or lesions. Breathing is not labored. EOMs are intact. Hearing is intact to gross assessment. Radiographic Evidence: The patient has had plain film x-rays of her lumbar spine. I have personallyreviewed this film. This shows an L2 burst fracture. This is stable when compared to the previous x-ray. Impression : L2 fracture. Plan: The patient will discontinue her TLSO brace. She will continue with physical therapy. I will see her again in one month for followup and flexion- extension x-rays. She will continue to avoid heavy lifting, twisting and bending as well as pushing and pulling. She will remain on light duty at work. If her pain increases while out of the brace, she will reapply the brace and call our office. Wilder see her in one month. Thank you for involving us in this patient's care. Sincerely, Kyara Lund PA-C documented in this encounter Plan of Treatment Not on file documented as of this encounter Visit Diagnoses Diagnosis Fracture of second lumbar vertebra (HCC-CMS)- Primary Closed fracture of lumbar vertebra without mention of spinal cord injury documented in this encounter Care Teams Cardboard Cutter Relationship Specialty Start Date End Date Shelby Pastor MD [address] [address] PCP - General 06/28/11 09/28/18 documented as of this encounter
--- OUTSIDE RECORDS SUMMARY | 2024-01-15 16:51 | XMS_ITS | Encounter Summary ---
Author Organization [facility] Address [address] [place] [address] Care Team Providers Care Research Rn Spec Name Role Phone Shelby Pastor MD Primary Care Provider [phone] Reason for Referral * Consult (Routine/Next Available) - Closed Specialty Diagnoses / Procedures Referred By Contac t Referred To Contact Diagnoses Fracture of second lumbar vertebra ([facility]) Antonia Salas MD [address] [facility], [address] [place] [address] Referral ID Status Reason Start Date Expiration Date V isits Requested Visits Authorized [id number] Closed Specialty Services Required 06/30/2011 1 1 Question Answer Physical therapy is needed for: Gait/Mobility Assessment and Training, Strength Training/Exercise Program Comments Home Health [id number] Encounter: I certify that this patient is under my care and that I, or a Medicare authorized non-physician provider (JAVA DEVELOPER CONSULTANT or PA) working with me, had a idmi-ix-fala encounter with this patient on 06/30/11 that was in whole or in part related to the reason the patient needs home health care. The findings of this encounter indicate that the patient requires snf or therapist services for the reasons listed below. MCC services: - are required to provide treatments and care safely and effectively Skilled therapist services: - are required because of the complexity of the therapy needed to treat the injury, illness or condition Additionally, the findings of this encounter support that the patient is homebound because: - post-injury restrictions or conditions limit the patient's ability to leave home Reason for Visit * Reason Comments Back Pain Pt arrives via EMS a s a transfer from after sliding down a mountain on cardboard and hit a bump that threw her up approx 8 ft in the air landing on her back. Pt has mildly displaced oblique fx at the superior aspect of L2 according to [facility]. Pt arrives A&Ox3. Positive CSM's throughout. Encounter Details Date Type Department Care Team (Late st Contact Info) Description 06/28/2011 3:45 EDT - 06/30/2011 14:50 EDT Emergency [facility] General Surgery Unit [address] [place] [id number] Juhi Ely MD [address] [facility], [address] [place] [address] Stanislaw Barclay MD [address] [place] [id number] Fracture of second lumbar vertebra (CMS-HCC) ([facility]) Discharge Disposition: Home-Health Care Svc Social History Tobacco Use Types Packs/Day Years [...] Sign Reading Time Taken Comments Blood Pressure 111/60 06/30/2011 0530 EDT Pulse 60 06/30/2011 0530 EDT Temperature 35.5 ??C (95.9 ??F) 06/30/2011 0530 EDT Respiratory Rate 16 06/30/2011 0530 EDT Oxygen Saturation 100% 06/30/2011 0530 EDT Inhaled Oxygen Concentration - - Weight 82.6 kg (182 lb) 06/28/2011 1111 EDT Height - - Body Mass Index - - documented in this encounter Functional Status Cognitive Status Response Date of Assessm ent Because of a physical, menta l, or emotional condition, do you have serious difficulty concentrating, remembering, or making decisions? (5 years old or older) Yes 06/28/2011 documented as of this encounter Discharge Summaries * Antonia Salas MD - 06/29/2011 1227 EDT Discharge Summary Chief Complaint/Reason for Admission: L2 burst fracture Principal/Final Diagnosis: Same Prognosis: good Condition at Discharge: Good Hospital Course: 20 y.o. female that sustained an L2 burst fracture while at a cardboard box sledding event in [place] on 06/27/11. She presented neurologically intact. She had an [place] TLSO brace fittedon 06/28/11. Her upright films demonstrated no instability. She was seen by physical and occupationaltherapy that recommended she have home health PT as well as a rolling walker and a commode. The patient was discharged on 06/30/11 with instructions to call the Neurosurgical Office within a week to schedule a follow-up appointment with Stanislaw Barclay MD in 3-4 weeks. Prescribed pain medications included robaxin and oxycodone. CC: Shelby Pastor MD Horgan, Michael A, MD Beatrice Disogra, SHELL Laureano, SHELL Lund Discharge Summary Completed: 06/30/11 documented in this encounter Discharge Instructions * Discharge Instructions* [facility] St MD - 06/29/2011 7:32 EDT POST- OPERATIVE INSTRUCTIONS AFTER LUMBAR FRACTURE 1. Avoid sitting or standing for more than 30 minutes without changing position. 2. You may walk as much as tolerated, but please begin with short distances. Please hold handrails while climbing stairs. 3. Avoid lifting more than 10 pounds which is the weight of a gallon of milk. Do not bend at the waist to lift. 4. You may resume sexual activity, limiting any stress on your back. 5. Drink plenty of fluids while taking pain medications to avoid constipation. You may need to takea stool softener such as Colace 100 mg twice daily. 6. Please call our office at [phone] if you experience severe pain, fever, wound drainage, increased numbness, weakness or pain in the hips, legs or feet. There is always a Physician available to you after hours and on weekends. 7. Please call to schedule a follow-up three to four weeks after discharge. documented in this encounter Medications at Time of Discharge Medication Sig Dispensed Refills Start Date End Date acetaminophen (TYLENOL) 500 mg tablet Take 2 Tabs by mouth every 6 hours. 06/29/2011 docusate sodium (COLACE) 100 mg capsule Take 1 Cap by mouth 2 times daily. 06/29/2011 07/24/2011 methocarbamol (ROBAXIN) 500 mg tablet Take 1-2 Tabs by mouth every 8 hours as needed (muscle spasms). 50 Tab 0 06/30/2011 07/24/2011 oxycodone (ROXICODONE) 5 mg immediate release tablet Take 1 Tab by mouth every 4 hours as needed for Pain (discomfort). 50 Tab 0 06/29/2011 07/24/2011 senna (SENOKOT) 8.6 mg tablet Take 1-2 Tabs by mouth 2 times daily as needed. 06/29/2011 07/24/2011 documented as of this encounter Ordered Prescriptions Prescription Sig Dispensed Refills Start Date End Da te acetaminophen (TYLENOL) 500 mg tablet Take 2 Tabs by mouth every 6 hours. 06/29/2011 methocarbamol (ROBAXIN) 500 mg tablet Take 1-2 Tabs by mouth every 8 hours as needed (muscle spasms). 50 Tab 0 06/30/2011 07/24/2011 oxycodone (ROXICODONE) 5 mg immediate release tablet Take 1 Tab by mouth every 4 hours as needed for Pain (discomfort). 50 Tab 0 06/29/2011 07/24/2011 senna (SENOKOT) 8.6 mg tablet Take 1-2 Tabs by mouth 2 times daily as needed. 06/29/2011 07/24/2011 methocarbamol (ROBAXIN) 500 mg tablet Take 1-2 Tabs by mouth every 8 hours as needed (muscle spasms). 50 Tab 0 06/29/2011 06/30/2011 docusate sodium (COLACE) 100 mg capsule Take 1 Cap by mouth 2 times daily. 06/29/2011 07/24/2011 documented in this encounter Discharge Disposition Disposition Code Departure Means Destination Home-Health Care c documented in this encounter Progress Notes * Tomasa Campbell RN - 06/30/2011 1453 EDT Pt ready for discharge home. OOB ambulating with brace on has had bm and is voiding. Given prescriptions and reviewed instructions. Referral called to dylon dang. * Cordelia Luna - 06/30/2011 1049 EDT Covering for Nia Cuevas. Reviewed EMR and spoke with nursing and PT this am. Met with pt. And her mom. Plan is for d/c to home with her mother today. Pt. Feeling better, has been up. Spoke to Anna Jordan from [employer] regarding equipment needs and meds. Pt. Will get rolling walker and commode through [employer], who will be delivering later today. Initial scripts can be filled at [facility]. Explained to mother to give pharmacy the info for [facility]. [employer] requires a credit card to hold and mother is OK with this. She will keep receipts and discuss with Anna after d/c. No other needs identified. Renée Luna RN, Trauma CM #[id number] * Shakila Pierce - 06/30/2011 0243 EDT Rehabilitation Therapies [facility] Physical Therapy Encounter Note Date of Service: 06/30/2011 SUBJECTIVE: I'm really hoping to go home, today. Pt with facial grimaces but no verbal c/o pain during treatment session OBJECTIVE: Intervention completed today: Time/Treatment Duration: 905/35 min's Vital signs have been stable (per nursing documentation) with interventions and were not monitored. Therapeutic Activity: Bed Mobility: pt performed supine <-> sit via log roll with supervision assist and tactile cues with verbal cues for technique, R side of bed with no bed features. Transfers: pt performed sit <-> stand transfers from/to the EOB with supervision assist and verbal cues for hand placement/ safety Pt amb with rw with brace intact, ~100 feet, supervision assist with verbal cues to maintain a moreupright posture, upward eye gaze, pursed lip breathing technique and decreased use of UE's on the rw. Pt would attempt to correct, however not maintain Brace: Donning/doffing verbally reviewed with pt and her mom Spine precautions reviewed with pt. Patient/Family Education: Topic: Activity pacing/Energy conservation Bed mobility Discharge planning Equipment use Positioning Precautions/protocol Safety Transfers Learner: patient, family and caregiver Method: verbal and demonstration Barriers to Learning: none noted Outcome: needs practice, verbalized understanding and returned demonstration Team Communication: Pt status discussed with nursing prior to and after treatment session. Equipment needs and PT referral discussed with Lizbeth Luna from Case Management ASSESSMENT: Pt tolerated activity well, but would benefit from an additional session today with the hope of being safe to return home. Will follow up this pm and if able to do stairs anticipate d/c home. PLAN: Continue per plan of care Recommended Discharge Destination: Home with caregiver Recommended Discharge Services: Home health physical therapy Recommended Equipment Needs: Rolling walker and Commode Other recommendations: No other consults recommended at this time Primary Therapist: Dana Gan Pager: [phone] Shakila Pierce, PHOTOGRAPHIC SPOTTER 06/30/2011 7:50 * Dana Gan, PT - 06/30/2011 7290 EDT Rehabilitation Therapies [facility] Physical Therapy Discontinue/Discharge Note Date of Service: 06/30/2011 Precautions: Category B No surgery/ brace, ambulate as tolerated. Brace whenever bed is greater than 30 degrees SUBJECTIVE: Oh no, I just got back in bed Pt consented to treatment. Pt with no verbal c/o pain during treatment OBJECTIVE: Intervention Completed Today: Physical therapist yard assistant provided treatment today and Time (treatment time and duration): 1310/20 min's for Therapeutic Activity and Gait. Vital signs have been stable (per nursing documentation) with interventions and were not monitored. Therapeutic Activity: Bed Mobility: pt able to get in/oob via log roll with brace on, modified independent with no bed features or cueing. Transfers: pt able to perform transfers, independently and demonstrating with good safety awareness Pt amb with rw with brace intact, ~30 feet, modified independent assist with verbal cues to maintain a more upright posture, upward eye gaze, pursed lip breathing technique and decreased use of UE's on the rw. Pt amb with a decreased jaycee, decreased B foot clearance, decreased step length with increased flexion at the hips. Pt limited by pain, although she does not verbalize this. Gait Training: Stairs: Patient ascended/descended (by backing down of the step) 1 step with 2 rails, patient required supervision assist with verbal cues for sequencing. Patient/Family Education: Topic: Activity pacing/Energy conservation Car transfers Discharge planning Equipment use (bed side commode) Precautions/protocol Safety Stairs Learner: patient, family and caregiver Method: verbal and demonstration Barriers to Learning: none noted Outcome: verbalized understanding and returned demonstration Team Communication: Pt status discussed with nursing prior to treatment session. Patient has been seen in physical therapy since 06/29/11 for Therapeutic exercises, Therapeutic activities and Gait training. In this reporting period 06/29/11 to 06/30/11 the patient has been seen by a physical therapist andphysical therapist yard assistant. Frequency: daily 1 time per week and twice a day 1 time per week. Intensity: 20-35 minutes per session. Duration: During this hospitalization. Please refer to the physical therapy notes for specifics on the patient's functional status and treatment sessions. Relevant objective findings: AROUSAL, ATTENTION, AND COGNITION: 06/30/11 Pt oriented to person, place and time CARDIOPULMONARY: Please refer above to Interventions Completed Today under Objective INTEGUMENTARY/ANTHROPOMETRIC CHARACTERISTICS: 06/30/11 No problems noted RANGE OF MOTION AND JOINT INTEGRITY: 06/30/11 Within normal limits, except for spine. Unable to assess secondary to TLSO Brace. MUSCLE PERFORMANCE: Per the Initial Evaluation on 06/29/11 Strength: Formal resistive muscle testing was not performed due to pain in low back with movement and resistance Upper Quarter: Left Upper Extremity: at least 3/5 Hepatologist 5/5 Right Upper Extremity: at least 3/5 Hepatologist 5/5 Cervical Spine: not tested Lower Quarter: Left Lower Extremity: at least 3/5 Ankle dorsiflexion 5/5 Right Lower Extremity:at least 3/5 Ankle dorsiflexion 5/5 Lumbar Spine: N/E SENSATION, REFLEXES, AND NERVE INTEGRITY: 06/30/11 No problems noted NEUROMOTOR FUNCTION/DEVELOPMENT: 06/30/11 No problems noted BALANCE, LOCOMOTION, AND GAIT: Please refer above to Interventions Completed Today under Therapeutic Activity and Gait SELF-CARE, HOME MANAGEMENT, WORK, AND LEISURE: Please refer above to Interventions Completed Today under Therapeutic Activity ASSESSMENT: Physical therapy services in this setting have been discontinued secondary to: Patient has been or will be discharged from the hospital Physical Therapy Diagnosis: decreased strength, decreased tolerance to activity and increased pain impacting patient's functional mobility and gait. Physical Therapy Prognosis: patient has progress well with therapy. She has not met her ambulation or stair goal at this time. She is limited by short length of stay. Anticipate she will meet goals below within time frame indicated. Would recommend HHPT for continued training in home setting. All goals discontinued in this setting. Short-Term Goals: N/A Long-Term Goals: 1 week The patient will be able to perform bed mobility with modified independence assist demonstrating appropriate sequencing/motor planning and adherence to precautions. Met The patient will demonstrate stable vital signs with position changes. N/E pt not symptomatic The patient will be able to perform transfers with modified independence while demonstrating an effective strategy for recovery of loss of balance. Met The patient will be able to ambulate with modified independence with no loss of balance on level surfaces 150-200 feet. Discontinued, only able to tolerate 100' The patient and/or caregiver will be able to recall and demonstrate precautions. Met All of the above mobility goals will be performed with an oxygen saturation > 95%. N/E pt not symptomatic The patient will be able to perform 3 stairs with modified independence with home set up for rails.Discontinued Patient and mom able to don/doff brace independently. Met PLAN: D/C Physical Therapy Recommended Discharge Destination: Home with caregiver Recommended Discharge Services: Home health physical therapy Recommended Equipment Needs: Rolling walker and Commode (provided by Case Management) Other recommendations: No other consults recommended at this time Shakila Pierce, PHOTOGRAPHIC SPOTTER 06/30/2011 7:42 Dana Gan DPT 06/30/11 [id number] * [address] St MD - 06/30/2011 0628 EDT Neurosurgery CC/ L2 fracture S/ Back sore. Stable upright films. Ambulated yesterday Blood pressure 111/60, pulse 60, temperature 35.5 ??C (95.9 ??F), temperature source Tympanic, resp. rate 16, weight 82.555 kg (182 lb), SpO2 100.00%. Awake, but appear sleepy, glassy-eyed. Verbalizes appropriately, fluently Follows commands x4 Extraocular movements intact Face symmetric LE Strength - LEFT Gastroc (S1, S2) 5/5 Anterior Tibialis (L4, 5) 5/5 Extensor Hallicus (L5) 5/5 LE Strength - RIGHT Gastroc (S1, S2) 5/5 Anterior Tibialis (L4, 5) 5/5 Extensor Hallicus (L5) 5/5 Sensation intact in bilateral lower extremities (L4/L5/S1 distributions) Incision clean/dry/intact WBC/Hgb/Hct/Plts: 10.30/13.4/39.3/266 (06/28 411) Na/K/Cl/CO2: 138/3.9/105/25 (06/28 411) BUN/Cr/glu/ALT/AST/amyl/lip: 11/0.62/--/--/--/--/-- (06/28 411) 20 year old female, s/p sledding accident. L2 fracture. Grossly intact. Physical therapy today Discharge planning [address] [address] MD * Cordelia Luna - 06/29/2011 1226 EDT Reviewed EMR and spoke with nursing. Pt. Has been nauseous today and has not been able to get up. Saw pt. Very briefly as she was visiting from several friends from work. Will follow up tom. Renée Luna RN, Trauma CM #[id number] * Michael Shea, PT - 06/29/2011 0938 EDT Rehabilitation Therapies [facility] Physical Therapy Initial Evaluation Note Date of Service: 06/29/2011 Reason for Referral: Evaluate and treat Precautions: Category B No surgery/ brace, ambulate as tolerated. Brace whenever bed is greater than 30 degrees SUBJECTIVE: My mouth is all watery, I think I need to lie down Pain: Location: low back and right hip Intensity: 5-7/10 (at present) Frequency: Constant with intermittent increase Quality: Dull/sharp Aggravating factors: mobility Alleviating factors: Medications, rest OBJECTIVE: Patient Profile: Patient is a 20 y.o. female admitted on 06/28/2011 secondary to L2 FRACTURE The patient lives at [address] [place] [address] Home environment Lives: With family Caregiver Support: per patient mom able to assist as needed Equipment Available: None Home Environment: House Home Layout: Multi-level. Entry Stairs: multiple 1 steps into doorways without rails Interior Stairs: flight with rails. Patient able to stay downstairs Bedroom: Downstairs Bathroom: Downstairs Prior Level of Function: Independent Services prior to admission: None Work/Leisure: Working full-time at [employer] Medical/Surgical History: Current: Patient Active Problem List Diagnoses ??? Fracture of second lumbar vertebra Past: Past Medical History Diagnosis Date ??? Thumb fracture right History reviewed. No pertinent past surgical history. Medications: Medications reviewed Arousal, Attention, and Cognition: Orientation: Alert Oriented to person, place, and time Cardiopulmonary: Vital Signs: Activity Heart rate (bpm) Blood Pressure (mmHg) Respiratory rate (breaths/min) Oxygen Sat/ Fractions of inspired Oxygen SPO2/FIO2 % Pre 66 124/72 98 % on room air During 70 122/58 Post Integumentary/Anthropometric Characteristics: Palpation/Observation: Skin: intact Posture: patient in TLSO brace Range of Motion and Joint Integrity: Active Range of Motion: Within normal limits except as noted Upper Quarter: Left Upper Extremity: Right Upper Extremity: Cervical Spine: Lower Quarter: Left Lower Extremity: Right Lower Extremity: Lumbar Spine: N/E Muscle Performance: Strength: Formal resistive muscle testing was not performed due to pain in low back with movement and resistance Upper Quarter: Left Upper Extremity: at least 3/5 Hepatologist 5/5 Right Upper Extremity: at least 3/5 Hepatologist 5/5 Cervical Spine: not tested Lower Quarter: Left Lower Extremity: at least 3/5 Ankle dorsiflexion 5/5 Right Lower Extremity:at least 3/5 Ankle dorsiflexion 5/5 Lumbar Spine: N/E Sensation, Reflexes, and Nerve Integrity: Light Touch Sensation: Upper Quarter: Intact C2-T1 Lower Quarter: Intact for lower extremities Neuromotor Function/Development: No problems noted Balance, Locomotion, and Gait: Balance: Sitting Balance Static: able to sit on edge of bed without support or assist Dynamic: Standing balance Not assessed secondary to patient did not stand due to lightheadedness and nausea Static: Dynamic: Locomotion: Not evaluated as wheelchair mobility does not apply to this patient. Gait: Assistive device/distance/assist/deviations: NE secondary to patient did not stand due to lightheadedness and nausea Self-Care, Home Management, Work, and Leisure: Mobility evaluation as follows: Rolling: to right min contact assist Supine to sit: via roll right min contact assist Sit to supine: mod assist for lower extremities into bed Sit to stand: NE Secondary to patient feeling lightheaded and nauseated Stand to sit: NE Bed to chair: NE Chair to bed: NE Informed Consent: The patient consented to the physical therapy evaluation. The patient agrees to and understands the physical therapy treatment plan and goals. Interventions Completed Today: Physical Therapy today at: [id number] Examination: 25 minutes Intervention: 5 minutes Intervention included: Therapeutic exercises: This patient has been educated in all precautions and progression of activity during and outside of PT with caregiver assistance. Patient educated in logrolling technique during mobility and was able to perform this with verbal and tactile cues and physical assistance. Patient/Family Education: Topic: Bed mobility Discharge planning Equipment use Exercise Gait Home program Positioning Precautions/protocol Role of therapy Safety Transfers Learner: patient Method: verbal Barriers to Learning: none noted Outcome: needs practice and verbalized understanding Team Communication: Discussed current mobility status with nursing for assistance outside of PT session. Discharge recommendations discussed with patient case coordinator. ASSESSMENT: Upper Quarter Screen: No positive findings-no follow up needed Physical Therapy Diagnosis: Patient is a 20 year old female admitted 06/28/11 secondary to 2nd lumbarvertebra fracture from sledding accident. Patient presents with PT diagnosis of decreased strength,decreased tolerance to activity and increased pain impacting patient's functional mobility and gait. Physical Therapy Prognosis: Patient is appropriate for skilled PT to address impairments and in preparation for discharge. Anticipate patient will progress with therapy and make gains in mobility, but progress may be slow or limited secondary to pain and nausea as was PT evaluation today. Patient does not demonstrate adequate ability in mobility to return home today. Anticipate patient will be able to return home with family assistance and VNA PT follow up. Patient will also benefit from familytraining to assist with don/doffing brace in supine position. Will work with patient while in hospital towards following goals. Short-Term Goals: N/A ?? Long-Term Goals: 1 week The patient will be able to perform bed mobility with modified independence assist demonstrating appropriate sequencing/motor planning and adherence to precautions. The patient will demonstrate stable vital signs with position changes. The patient will be able to perform transfers with modified independence while demonstrating an effective strategy for recovery of loss of balance. The patient will be able to ambulate with modified independence with no loss of balance on level surfaces 150-200 feet. The patient and/or caregiver will be able to recall and demonstrate precautions. All of the above mobility goals will be performed with an oxygen saturation > 95%. The patient will be able to perform 3 stairs with modified independence with home set up for rails. Patient and mom able to don/doff brace independently. PLAN: Treatment/Intervention: Physical therapy will be provided by physical therapist and/or physical therapist yard assistant when medically appropriate. Frequency: daily 5-7 times per week Intensity: 30 minutes Duration: During hospitalization Interventions may include:Therapeutic exercises, Therapeutic activities and Gait training Patient/family education: Discharge planning, Equipment, Family training as appropriate, Precautions, Recommendations, Role of physical therapy/rehabilitation, Safety Further Data: transfers, walker, gait, stairs Recommended Discharge Destination: Home with caregiver Recommended Discharge Services: Home health physical therapy Recommended Equipment Needs: Rolling walker, bedside commode Other recommendations: No other consults recommended at this time Pager: [phone] MICHAEL SHEA, PT 06/29/2011 9:55 * [address] [address] MD - 06/29/2011 0708 EDT Neurosurgery CC/ L2 fracture S/ Back sore. Stable upright films. Blood pressure 106/57, pulse 65, temperature 35.7 ??C (96.3 ??F), temperature source Tympanic, resp. rate 16, weight 82.555 kg (182 lb), SpO2 98.00%. Awake, but appear sleepy, glassy-eyed. Verbalizes appropriately, fluently Follows commands x4 Extraocular movements intact Face symmetric LE Strength - LEFT Gastroc (S1, S2) 5/5 Anterior Tibialis (L4, 5) 5/5 Extensor Hallicus (L5) 5/5 LE Strength - RIGHT Gastroc (S1, S2) 5/5 Anterior Tibialis (L4, 5) 5/5 Extensor Hallicus (L5) 5/5 Sensation intact in bilateral lower extremities (L4/L5/S1 distributions) Incision clean/dry/intact WBC/Hgb/Hct/Plts: 10.30/13.4/39.3/266 (06/28 411) Na/K/Cl/CO2: 138/3.9/105/25 (06/28 411) BUN/Cr/glu/ALT/AST/amyl/lip: 11/0.62/--/--/--/--/-- (06/28 411) 20 year old female, s/p sledding accident. L2 fracture. Grossly intact. Physical therapy today Discharge planning Minimize narcotic use if possible [address] [address] MD * Hattie Shirley - 06/28/2011 1617 EDT [facility] Physical Therapy Contact Note Date of Service: 06/28/2011 PT consult received, chart reviewed, spoke with RN. Patient HAS received her brace, but she is currently off the unit for upright films. Per RN, patient has been mobilizing independently and is likely to be discharged home this evening if films look good. Will follow up tomorrow pending the need for PT clearance if patient remains in this setting overnight. Hattie Shirley, PT 06/28/2011 16:17 * [address] [address] MD - 06/28/2011 1110 EDT Neurosurgery CC/ L2 fracture S/ Tingling on bottom of left foot. Minimal back pain. Sleepy, nauseated Blood pressure 120/65, pulse 66, temperature 35.6 ??C (96.1 ??F), temperature source Tympanic, resp. rate 20, SpO2 96.00%. Awake, but appear sleepy, glassy-eyed. Verbalizes appropriately, fluently Follows commands x4 Extraocular movements intact Face symmetric LE Strength - LEFT Iliopsoas(L2, 3) 5/5 Gastroc (S1, S2) 5/5 Anterior Tibialis (L4, 5) 5/5 Extensor Hallicus (L5) 5/5 LE Strength - RIGHT Iliopsoas(L2, 3) 5/5 Gastroc (S1, S2) 5/5 Anterior Tibialis (L4, 5) 5/5 Extensor Hallicus (L5) 5/5 Sensation intact in bilateral lower extremities (L4/L5/S1 distributions) Incision clean/dry/intact WBC/Hgb/Hct/Plts: 10.30/13.4/39.3/266 (06/28 411) Na/K/Cl/CO2: 138/3.9/105/25 (06/28 411) BUN/Cr/glu/ALT/AST/amyl/lip: 11/0.62/--/--/--/--/-- (06/28 411) 20 year old female, s/p sledding accident. L2 fracture. Grossly intact. Brace ordered Upright films Discharge planning Minimize narcotic use if possible [address] [address] MD * Nia Alvarez [facility] - 06/28/2011 1018 EDT Met briefly w/rachana this morning. She was very tired and quite nauseous- getting meds for it. Rachana said she was at an end of the season green party at [employer] & there were a bunch of people doing this race. She and 4 or 5 other people were hurt, all went to [place] & 2 came here. She knows her friend is here & has been updated about his injury & plan for surgery. She mentioned that the big boss at [place] is taking care of this. i asked if she meant workers comp & she said yes. Will ask PFS follow up w/her about at a later time. Her sister & ROSALINO arrived to visit. Left card & will check in later. Nia cuevas psych nurse [phone] documented in this encounter H&P Notes * Hortensia Vogel MD - 06/28/2011 0318 EDT Neurosurgery H&P CC: Back pain HPI: Rachana Stearns is a 20 y.o. 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 The patient landed on [facility] and had immediate pain. She was evaluated at the [facility], then transferred to [facility] for evaluation. The patient reports a brief loss of consciousness, then pain in her low back and rightleg. She also complains of mild pain at her ankle which struck the ground. Per notes the patient was neurologically intact at the scene and at [facility]. Currently she complains of generalized achiness all over. The patient has a history of low back pain with a disc problem at 9 or 10 years old. The patient also broke her thumb this winter and has been wearing a brace for that fracture. Patient denies BARCENAS, nausea, numbness, or weakness at this time. Patient Active Problem List Diagnoses Date Noted ??? (H)Fracture of second lumbar vertebra 06/28/2011 Past Medical History Diagnosis Date ??? Thumb fracture right History reviewed. No pertinent past surgical history. reports that she has never smoked. She does not have any smokeless tobacco history on file. She reports that she drinks about 2.5 ounces of alcohol per week. History Smoking status ??? Not on file Smokeless tobacco ??? Not on file Family History Reviewed, noncontributory Allergies: Home meds Prior to Admission medications Not on File ROS: A 10 point ROS was completed; pertinent positives and negative were mentioned in HPI PE: Blood pressure 127/65, pulse 71, temperature 35.8 ??C (96.4 ??F), temperature source Tympanic, resp. rate 18, SpO2 99.00%. Gen: Awake, alert, NAD, texting on her phone Neuro: Oriented 3 FS TML PERRL, EOMI, wearing glasses Upper extremity strength 5/5 (client account specialist, bicep, tricep, deltoid (splint on right wrist)) Left lower extremity strength 5/5 (IP, quad, AT Gastroc, EHL) Right lower extremity strength pain limited: 5/5 IP quad, 4+/5 AT, gastroc EHL) Sensation intact to LT throughout No hoffmans No clonus +1 patellar reflexes bilaterally No tenderness to palpation along cervical spine, no pain with flexion, extension, or rotation Tenderness to palpation in upper lumbar spine, and sacral area No perineal numbness, no tingling (has voided on bedpan at OSH) Speech clear and appropriate CV: RRR Pulm: non labored Abd: Soft, ND NT Ext: no tenderness to palpation of left ankle, or pain with movement GCS = 15 Labs: Pending Imaging: CT L Spine OSH: L2 Anterior body fracture, posterior elements intact. No canal compromise, no significant height loss C-Spine OSH Xray: no fracture T Spine Xray: Pending Assessment/Plan: 20 y.o. female with L2 fracture, with pain in low back and radiating down R leg, some (lilkey) pain limited/effort related weakness ?? Admit ?? Full spine precautions ?? Log roll prn ?? Ok for HOB 30 degrees, or reverse trendelenberg to 30 degrees ?? TLSO brace, upright films after brace ?? Prn pain meds ?? Follow exam closely ?? Completion spine imaging Discussed with Dr. Deny VOGEL MD Neurosurgery resident 06/28/2011 3:18 Page 0090 with questions documented in this encounter ED Notes * Juhi Ely MD - 07/05/2011 1600 EDT DOS: 06/28/2011 Chief Complaint Patient presents with ??? Back Pain Pt arrives via EMS [place] a [place] and hit a bump that threw her up approx 8 ft in the air landing on her back. Pt has mildly displaced oblique fx at the superior aspect of L2 according to [facility]. Pt arrives A&Ox3. Positive CSM's throughout. The patient is a 20 y.o. female who presents today with Back Pain HPI Comments: 20 yo female comes in as a transfer from OSH with a traumatic L2 fracture. [place] [employer] [place] on [place]. Hit a bump and flew off the box, landing on her back. Had immediate pain in her back. No numbness or tingling. Not able to walk a fterwards. + helmeted, did not hit her head. No LOC. Seen at OSH and Ct showed L2 fx with displacement. Has remained neurologically intact. Arrives here for definitive care. Pain does radiate down her right leg. Denies nausea, vomiting, blurry vision. Continues to have no numbness or tingling in extremities. No bowel or bladder dysfunction. ROS as per HPI, otherwise reviewed in full and either negative or noncontributory. The history is provided by the patient and medical records. Back Pain Review of Systems Musculoskeletal: Positive for back pain. Past Medical History Diagnosis Date ??? Thumb fracture right History reviewed. No pertinent past surgical history. No Known Allergies History Substance Use Topics ??? Smoking status: Never Smoker ??? Smokeless tobacco: Not on file ??? Alcohol Use: 2.5 oz/week 5 drink(s) per week No family history on file. Vital Signs Temp: 35.5 ??C (95.9 ??F) Temp src: Tympanic Pulse: 60 Heart Rate: 59 BPM Resp: 16 SpO2: 100 % BP: 111/60 mmHg BP Device: BP Machine Patient Position: Supine BP Cuff Location: Left arm O2 Device: None (Room air) Physical Exam Nursing note and vitals reviewed. Constitutional: She is oriented to person, place, and time. She appears well- developed and well-nourished. No distress. HENT: Head: Normocephalic and atraumatic. Right Ear: External ear normal. Left Ear: External ear normal. Nose: Nose normal. Eyes: Pupils are equal, round, and reactive to light. Right eye exhibits no discharge. Left eye exhibits no discharge. Neck: Normal range of motion. Neck supple. No tracheal deviation present. Cardiovascular: Normal rate, regular rhythm and normal heart sounds. No murmur heard. Pulmonary/Chest: Breath sounds normal. No respiratory distress. She has no wheezes. She exhibits notenderness. Abdominal: Soft. She exhibits no distension. There is no tenderness. Musculoskeletal: Normal range of motion. She exhibits tenderness (L2 region.). She exhibits no edema. Neurological: She is alert and oriented to person, place, and time. She has normal strength. No sensory deficit. 4/5 plantarflexion right side, unclear if limited due to pain. Otherwise 5/5 strength. Did not testhip flexors. Dorsiflexion 5/5 bilaterally. Skin: Skin is warm and dry. No rash noted. She is not diaphoretic. Psychiatric: She has a normal mood and affect. Radiology orders: OUTSIDE IMAGES - CT NEURO OUTSIDE IMAGES - OTHER NEURO OUTSIDE IMAGES - OTHER NEURO THORACIC SPINE 2-3 VIEWS L SPINE 2-3 VIEWS THORACIC SPINE 2-3 VIEWS Final result not shown here.: L SPINE 2-3 VIEWS Final result not shown here.: OUTSIDE IMAGES - CT NEURO (Results Pending) OUTSIDE IMAGES - OTHER NEURO (Results Pending) OUTSIDE IMAGES - OTHER NEURO (Results Pending) Procedures Labs Reviewed ELECTROLYTES HEMAGRAM BUN CREATININE PROTIME PTT TYPE AND SCREEN ED Course: A medical screening exam was performed. OSH studies reviewed. Patient here with L2 fx s/p sledding and weakness on plantarflexion, although no numbness or tingling. May be due to pain. Admitted to neurosurg for further eval and treatment. Pain meds given. Disposition: Admitted The patient's pain was managed to an adequate level weighing risk vs. benefit of further medications. Upon departure from the Emergency Department, the patient's pain was 6 on a zero to ten scale. Condition at departure from the Emergency Department: Improved MDM 4-5 1. Fracture of second lumbar vertebra FROM IP - CONSULT HOME HEALTH SERVICES, KENZIE DELONG CHAIR(PURCHASE/RENTAL) PCP: Shelby Pastor MD 07/05/2011 16:01 * Brinda Oliveros RN - 06/28/2011 0639 EDT Blood drawn via saline lock per protocol, tiger, blue, purple and pink tube(s) sent to lab per order. * Nayeli Farley - 06/28/2011 0307 EDT Transfer pt from . Dr. Barclay accepting. Pt had been sledding and crashed. Has L2 fracture. No neuro deficits. VSS. Received 200mcg Fentanyl, 2mg dilaudid, 1mg Ativan, Percocet x 2. NKDA. No med history documented in this encounter Miscellaneous Notes * Scanned Note-Null - DIALYSIS TECHNICIAN, SCAN 2 - 07/04/2011 2108 EDT * Miscellaneous - DIALYSIS TECHNICIAN, SCAN 2 - 07/04/2011 0839 EDT * Miscellaneous - DIALYSIS TECHNICIAN, SCAN 2 - 07/04/2011 0839 EDT * Scanned Note-Null - DIALYSIS TECHNICIAN, SCAN 2 - 07/02/2011 0749 EDT * Plan of Care - Tomasa Campbell RN - 06/30/2011 1226 EDT Problem: PAIN Goal: Patient???s Pain And Discomfort Are Adequately Managed Active Multi-Disciplinary problems: PRESSURE ULCER PREVENTION [891671] (06/28/11) PAIN [858389] (06/28/11) HOSPITAL ORIENTATION/SAFETY [490771] (06/28/11) RESPIRATORY FUNCTION/OXYGENATION [549105] (06/29/11) MOBILITY [947467] (06/29/11) ELIMINATION [137862] (06/29/11) Data: Pt resting in bed Pain was 6/10 in back after ambulating and having BM in bathroom. Action: Medicated with 5mg oxycodone and Robaxin 1000mg. Response: Currently sleeping. Will reassess. Tomasa Campbell RN 06/30/2011 12:22 * [id number] Attestation - Antonia Salas MD - 06/30/2011 1010 EDT Home Health [id number] Encounter: I certify that this patient is under my care and that I, or a Medicare authorized non-physician provider (JAVA DEVELOPER CONSULTANT or PA) working with me, had a [id number] encounter with this patient on 06/30/11 that was in whole or in part related to the reason the patient needs home health care. The findings of this encounter indicate that the patient requires snf or therapist services for the reasons listed below. MCC services: - are required to provide treatments and care safely and effectively Skilled therapist services: - are required because of the complexity of the therapy needed to treat the injury, illness or condition Additionally, the findings of this encounter support that the patient is homebound because: - leaving home requires considerable and taxing effort due to a medical condition * Plan of Care - Aliza Gordon - 06/30/2011 0616 EDT Problem: PAIN Goal: Patient???s Pain And Discomfort Are Adequately Managed Data: Patient reporting pain at times in mid back. Action: Medicated with scheduled tylenol. Response: Patient resting well throughout shift. * Plan of Care - Tomasa Campbell RN - 06/29/2011 1541 EDT Problem: MOBILITY Goal: Mobility/Activity Is Maintained At Optimum Level For Patient Active Multi-Disciplinary problems: PRESSURE ULCER PREVENTION [093585] (06/28/11) PAIN [501115] (06/28/11) HOSPITAL ORIENTATION/SAFETY [547741] (06/28/11) RESPIRATORY FUNCTION/OXYGENATION [044032] (06/29/11) MOBILITY [958885] (06/29/11) ELIMINATION [416610] (06/29/11) Data: Pt OOB to commode voided nellie urine 400cc. Gardiner nauseated this am when pt was with pt tryingto get her up so did not get up then. Action: Pt feeling slightly better this afternoon. Pain was 6/10 medicated with oxycodone 5mg and went to 5. Pt oOB currently with brace on and ambulated down [place] approx 50ft with walker. No nausea . Response: Will continue to monitor. Tomasa Campbell, SHELL 06/29/2011 15:28 * Plan of Care - Aliza Gordon - 06/29/2011 0342 EDT Data: Patient reported feeling lightheaded upon transfer to [facility] at 0300. BP stable. Action: Patient assisted back to bed. Response: Returning to rest. Will monitor for factors effecting sense of lightheadedness. * Plan of Care - Aliza Gordon - 06/29/2011 0149 EDT Problem: PAIN Goal: Patient???s Pain And Discomfort Are Adequately Managed Data: Patient reporting pain in lower back. Action: Medicated prn, see eMAR. Response: Patient returning to rest after medication administration. * Plan of Care - Angella Zelaya - 06/29/2011 0016 EDT Problem: RESPIRATORY FUNCTION/OXYGENATION Goal: Patient Will Maintain Patent Airway RESPIRATORY DATA: Lungs clear on room air but diminished because of TLSO brace. ACTION: Explained to patient the importance of keeping lung function normal and showed her how to use IS. RESPONSE: She had difficulty at first but kept working on it and was able to get it up to 1000. No cough or secretions. * Scanned Note-Null - DIALYSIS TECHNICIAN, SCAN 2 - 06/28/2011 1646 EDT * Scanned Note-Null - DIALYSIS TECHNICIAN, SCAN 2 - 06/28/2011 1646 EDT * Plan of Care - Soraya Sims, SHELL - 06/28/2011 1346 EDT Problem: PAIN Goal: Patient???s Pain And Discomfort Are Adequately Managed Data: Patient with nausea and small amount of emesis. Medicated with prn zofran for nausea, lying supine. Action: Reports new tingling/pressure to LLE and R foot since episode of nausea. Per pt, strained back while vomiting. Neuro checks otherwise stable. MD notified. Response: MD to bedside to evaluate. Will continue to monitor Soraya Sims RN 06/28/2011 13:45 * Scanned Note-Null - DIALYSIS TECHNICIAN, SCAN 2 - 06/28/2011 1203 EDT * Scanned Note-Null - DIALYSIS TECHNICIAN, SCAN 2 - 06/28/2011 1203 EDT * Plan of Care - Bhargavi Moeller, SHELL - 06/28/2011 0604 EDT Problem: HOSPITAL ORIENTATION/SAFETY Goal: Oriented To Hospital Environment Outcome: Ongoing Data: Pt admitted to B3-1 from ED with L2 fracture s/p sledding accident. VSS, afebrile, IVF infusing, neuros intact, SCDs on Action: VS and assessment as documented, care plan initiated, spine precautions maintained. Response: Pt sleeping, call pratt within reach, will continue to monitor. Bhargavi Moeller, SHELL 06/28/2011 5:59 documented in this encounter Plan of Treatment Pending Results Name Type Priority Associated Diagnoses Date /Time OUTSIDE IMAGES - CT NEURO Imaging 06/27/2011 23:58 EDT OUTSIDE IMAGES - OTHER NEURO Imaging 06/27/2011 23:59 EDT OUTSIDE IMAGES - OTHER NEURO Imaging 06/28/2011 0:03 EDT Scheduled Referrals Name Type Priority Associated Diagnoses Orde r Schedule FROM IP - CONSULT HOME HEALTH SERVICES Outpatient Referral Routine Fracture of second lumbar vertebra ([facility]) ([facility]) Ordered: 06/30/2011 documented as of this encounter Procedures Procedure Name Priority Date/Time Associated Diagnosis Comments L SPINE 2-3 VIEWS Routine 06/28/2011 15: 40 EDT TYPE AND SCREEN Routine 06/28/2011 4:41 EDT PTT Routine 06/28/2011 4:12 EDT PROTIME Routine 06/28/2011 4:12 EDT COMPLETE BLOOD COUNT Routine 06/28/2011 4:12 EDT BUN Routine 06/28/2011 4:12 EDT CREATININE Routine 06/28/2011 4:12 EDT ELECTROLYTES Routine 06/28/2011 4:12 EDT THORACIC SPINE 2-3 VIEWS Routine 06/28/2011 3:47 EDT documented in this encounter Results * L SPINE 2-3 VIEWS (06/28/2011 15:40 EDT) Anatomical Region Laterality Modality Other 06/28/2011 15:4 0 EDT 06/28/2011 16:54 EDT Narrative 06/28/2011 16:54 EDT L SPINE 2-3 VIEWS ??Jun 28, 2011 03:40:00 PM Clinical History/Comments: L2 fracture, s/p brace. Please obtain upright and lateral films with brace on, centered at L2 Comparison: None Findings: L2 superior endplate fracture. Otherwise the remaining vertebral body height and alignment normal with brace on. The brace obscures some bone detail. Procedure Note 06/28/2011 L SPINE 2-3 VIEWS Jun 28, 2011 03:40:00 PM Clinical History/Comments: L2 fracture, s/p brace. Please obtain upright and lateral films with brace on, centered at L2 Comparison: None Findings: L2 superior endplate fracture. Otherwise the remaining vertebral body height and alignment normal with brace on. The brace obscures some bone detail. Gonzalo St MD IMG DIAGNOSTIC IMAGI NG ORDERABLES * TYPE AND SCREEN (06/28/2011 4:41 EDT) ABO O [facility] Rh Factor Positive [facility] Antibody Screen Negative [facility] Comment:SAMPLE EXPIRES 06/30 AT 23.59 06/28/2011 4:41 EDT 06/28/2011 4:41 EDT Default Emergency MD BLOOD BANK TESTS Performing Organization Address [facility] de Phone Number [facility] [address] [place] [address] * PTT (06/28/2011 4:12 EDT) PTT 28 26 - 37 secs [facility] Comment: Therapeutic Heparin range: ??65-100 seconds Note new reference range and Therapeutic Heparin Range in use effective 06/06/2011 Blood specimen (specimen) 06/28/2011 4:12 EDT 06/28/2011 4:18 EDT Hortensia Vogel MD HEMATOLOGY & PF4 ORD ERABLES Performing Organization Address [facility] Co de Phone Number [facility] [address] [place] [address] * PROTIME (06/28/2011 4:12 EDT) Pro Time 12.1 9.5 - 13.1 secs [facility] I.N.R. 1.1 0.9 - 1.1 Ratio [facility] Comment: Moderate Intensity Coumadin INR = 2.0-3.0 Adjustments in anticoagulant therapy dose should be based upon the INR and NOT the Pro Time. Blood specimen (specimen) 06/28/2011 4:12 EDT 06/28/2011 4:18 EDT Hortensia Vogel MD HEMATOLOGY & PF4 ORD ERABLES Performing Organization Address [facility] Co de Phone Number [facility] [address] [place] [address] * CREATININE (06/28/2011 4:12 EDT) Creatinine 0.62 0.52 - 1.04 mg/dl [facility] GFR, Calculated >60 >60 ml/min/1.7 3m2 [facility] Blood specimen (specimen) 06/28/2011 4:12 EDT 06/28/2011 4:18 EDT Hortensia Vogel MD CHEMISTRY & BLOOD GA S ORDERABLES Performing Organization Address [facility] Co de Phone Number [facility] [address] [place] [address] * BUN (06/28/2011 4:12 EDT) BUN 11 10 - 26 mg/dl [facility] Blood specimen (specimen) 06/28/2011 4:12 EDT 06/28/2011 4:18 EDT Hortensia Vogel MD CHEMISTRY & BLOOD GA S ORDERABLES Performing Organization Address [facility] Co de Phone Number [facility] [address] [place] [address] * HEMAGRAM (06/28/2011 4:12 EDT) WBC 10.30 4.0 - 12.4 K/cmm [facility] RBC 4.40 3.86 - 5.04 M/cmm [facility] Hemoglobin 13.4 11.6 - 15.2 gm/dl [facility] HCT 39.3 34.9 - 44.4 % [facility] MCV 89 81 - 98 fl [facility] MCH 30.5 26.7 - 33.3 pg [facility] MCHC 34.2 32.1 - 35.9 gm/dl [facility] PLT 266 141 - 320 K/cmm [facility] RDW-CV 13.5 11.7 - 14.6 % [facility] Blood specimen (specimen) 06/28/2011 4:12 EDT 06/28/2011 4:18 EDT Hortensia Vogel MD HEMATOLOGY & PF4 ORD ERABLES Performing Organization Address [facility] de Phone Number [facility] [address] [place] [address] * ELECTROLYTES (06/28/2011 4:12 EDT) Sodium 138 136 - 145 mEq/L [facility] Potassium 3.9 3.5 - 5.0 mEq/L [facility] Chloride 105 96 - 110 mEq/L [facility] CO2 25 24 - 32 mEq/L [facility] Blood specimen (specimen) 06/28/2011 4:12 EDT 06/28/2011 4:18 EDT Hortensia Vogel MD CHEMISTRY & BLOOD GA S ORDERABLES Performing Organization Address [facility] de Phone Number [facility] [address] [place] [address] * THORACIC SPINE 2-3 VIEWS (06/28/2011 3:47 EDT) Anatomical Region Laterality Modality Other 06/28/2011 3:47 EDT 06/28/2011 8:48 EDT Narrative 06/28/2011 8:48 EDT THORACIC SPINE 2-3 VIEWS ??Jun 28, 2011 03:47:00 AM Signs and Symptoms/Comments: ??L2 fracture after fall, back pain, eval for t spine fracture Comparison: Outside CT the lumbar spine Findings: AP, lateral and swimmer's views of the thoracic spine were obtained. Visualization of the upper thoracic spine is suboptimal on the lateral view . Alignment appears normal on the frontal radiograph. No fracture is seen in the mid to lower thoracic spine. The cervical thoracic junction is normally aligned. If there is tenderness or clinical concern for fracture in the upper thoracic spine, CT is recommended for further evaluation. I have personally reviewed the images and the above interpretation and agree with the findings. Procedure Note Rina Dickerson MD - 06/28/2011 THORACIC SPINE 2-3 VIEWS Jun 28, 2011 03:47:00 AM Signs and Symptoms/Comments: L2 fracture after fall, back pain, eval for t spine fracture Comparison: Outside CT the lumbar spine Findings: AP, lateral and swimmer's views of the thoracic spine were obtained. Visualization of the upper thoracic spine is suboptimal on the lateral view . Alignment appears normal on the frontal radiograph. No fracture is seen in the mid to lower thoracic spine. The cervical thoracic junction is normally aligned. If there is tenderness or clinical concern for fracture in the upper thoracic spine, CT is recommended for further evaluation. I have personally reviewed the images and the above interpretation and agree with the findings. Shorty Atkinson MD [facility] DIAGNOSTIC IMAGI NG ORDERABLES documented in this encounter Visit Diagnoses Diagnosis Fracture of second lumbar vertebra (HCC-CMS) Closed fracture of lumbar vertebra without mention of spinal cord injury Fracture of second lumbar vertebra (HCC-CMS) Closed fracture of lumbar vertebra without mention of spinal cord injury documented in this encounter Administered Medications Inactive Administered Medications - up to 3 most recent administrations Medication Order MAR Action Action Date Dose Rate Site acetaminophen (TYLENOL) tablet 1,000 mg 1,000 mg, oral, EVERY 6 HOURS, First dose (after last modification) on Brina 06/28/11 at 1200, Until Discontinued, STAT Given 06/30/2011 14:07 EDT 1,000 mg Given 06/30/2011 6:32 EDT 1,000 mg Given 06/30/2011 1:10 EDT 1,000 mg bisacodyl (DULCOLAX) suppository 10 mg 10 mg, rectal, EVERY 48 HOURS PRN, Starting on 06/30/11 at 0000, Until 06/30/11 at 1652, Constipation, STAT Given 06/30/2011 10:09 EDT 10 mg docusate sodium (COLACE) capsule 100 mg 100 mg, oral, 2 TIMES DAILY, First dose on Brina 06/28/11 at 0900, Until Discontinued, STAT Given 06/30/2011 9:14 EDT 200 mg Given 06/29/2011 20:49 EDT 100 mg Given 06/29/2011 9:14 EDT 100 mg HYDROmorphone (PF) (DILAUDID) 1 mg/mL injection 0.5 mg 0.5 mg, intravenous, NOW X1, 1 dose, On Brina 06/28/11 at 0445, STAT Given 06/28/2011 4:16 EDT 0.5 mg HYDROmorphone (PF) (DILAUDID) 1 mg/mL injection 1 dose, Starting on Brina 06/28/11 at 0351, Until Brina 06/28/11 at 0416 magnesium hydroxide (MILK OF MAGNESIA) 400 mg/5 mL suspension 30 mL 30 mL, oral, AT BEDTIME, First dose on Brina 06/28/11 at 2100, Until Discontinued, STAT Given 06/29/2011 20:49 EDT 30 mL Given 06/28/2011 20:23 EDT 30 mL methocarbamol (ROBAXIN) tablet 500-1,000 mg 500-1,000 mg, oral, EVERY 8 HOURS PRN, Starting on Brina 06/28/11 at 0502, Until 06/30/11 at 1652, Other, muscle spasms, STAT Given 06/30/2011 11:09 EDT 1,0 00 mg Given 06/29/2011 16:08 EDT 1,000 mg Given 06/29/2011 9:22 EDT 500 mg morphine injection 1-2 mg 1-2 mg, intravenous, EVERY 4 HOURS PRN, Starting on Brina 06/28/11 at 0502, Until 06/30/11 at 1652, Pain, discomfort, STAT Given 06/28/2011 18:07 EDT 2 mg Multivitamins with Minerals tablet 1 Tab 1 Tablet, oral, DAILY, First dose on Sat06/28/11 at 0900, Until Discontinued, STAT Given 06/30/2011 9:14 EDT 1 Tabl et Given 06/29/2011 9:15 EDT 1 Tablet ondansetron (PF) (ZOFRAN) 4 mg/2 mL injection 1 dose, Starting on Sat06/28/11 at 0412, Until Brina 06/28/11 at 0416 ondansetron (PF) (ZOFRAN) injection 2-4 mg 2-4 mg, intravenous, EVERY 4 HOURS PRN, Starting on Sat06/28/11 at 0502, Until 06/30/11 at 1652, Nausea, STAT Given 06/28/2011 9:34 EDT 4 mg ondansetron (PF) (ZOFRAN) injection 4 mg 4 mg, intravenous, NOW X1, 1 dose, On Sat06/28/11 at 0445, STAT Given 06/28/2011 4:16 EDT 4 mg oxycodone (ROXICODONE) immediate release tablet 5 mg 5 mg, oral, EVERY 4 HOURS PRN, Starting on Sat06/29/11 at 0709, Until 06/30/11 at 1652, Pain, discomfort, STAT Given 06/30/2011 14:35 EDT 5 mg Given 06/30/2011 11:09 EDT 5 mg Given 06/29/2011 18:52 EDT 5 mg oxycodone (ROXICODONE) immediate release tablet 5-10 mg 5-10 mg, oral, EVERY 4 HOURS PRN, Starting on Sat06/28/11 at 1114, Until Sat06/29/11 at 0709, Pain, discomfort, STAT Given 06/29/2011 0:27 EDT 10 mg Given 06/28/2011 20:22 EDT 10 mg Given 06/28/2011 16:15 EDT 10 mg oxycodone (ROXICODONE) immediate release tablet 5-15 mg 5-15 mg, oral, EVERY 4 HOURS PRN, Starting on Sat06/28/11 at 0502, Until Sat06/28/11 at 1115, Pain, discomfort, STAT Given 06/28/2011 6:29 EDT 10 mg sodium chloride 0.9 % with KCl 20 mEq/L infusion at 75 mL/hr, intravenous, CONTINUOUS, Starting on Sat06/28/11 at 0530, Until Brina 06/28/11 at 1115, STAT New Bag 06/28/2011 5:12 EDT 75 mL/hr documented in this encounter Discontinued Medications Medication Sig Discontinue Reason Start Date End Da te methocarbamol (ROBAXIN) 500 mg tablet Take 1-2 Tabs by mouth every 8 hours as needed (muscle spasms). 06/29/2011 06/30/2011 documented as of this encounter Active and Recently Administered Medications Times are shown in EDT. Scheduled Medication Order 06/28/2011 06/29/2011 06/30/2011 acetaminophen (TYLENOL) tablet 1,000 mg 1,000 mg, oral, EVERY 6 HOURS, First dose (after last modification) on Brina 06/28/11 at 1200, Until Discontinued, STAT 1129 (Given - Provider: Soraya Sims RN)1807 (Given - Provider: Angella Zelaya) 0027 (Given - Provider: Aliza Gordon)0539 (Given - Provider: Aliza Gordon)1331 (Given - Provider: Tomasa Campbell, SHELL)1852 (Given - Provider: Tomasa Campbell, SHELL) 0110 (Given - Provider: Aliza Gordon - Comment: Unable to give previously per daily max dose warning)0632 (Given - Provider: Aliza Gordon)1407 (Given - Provider: Tomasa Cambpell, SHELL) docusate sodium (COLACE) capsule 100 mg 100 mg, oral, 2 TIMES DAILY, First dose on Brina 06/28/11 at 0900, Until Discontinued, STAT 0906 (Given - Provider: Soraya Sims RN)202 (Given - Provider: Angella Zelaya) 0914 (Given - Provider: Tomasa Campbell, SHELL)204 (Given - Provider: Nia Bess, SHELL) 0914 (Given - Provider: Tomasa Campbell, SHELL) HYDROmorphone (PF) (DILAUDID) 1 mg/mL injection 0.5 mg (COMPLETED) 0.5 mg, intravenous, NOW X1, 1 dose, On Brina 06/28/11 at 0445, STAT 0416 (Given - Provider: Brinda Oliveros, SHELL) magnesium hydroxide (MILK OF MAGNESIA) 400 mg/5 mL suspension 30 mL (CANCELED) 30 mL, oral, AT BEDTIME, First dose on Brina 06/28/11 at 2100, Until Discontinued, STAT 2022 (Given - Provider: Angella Zelaya) 2048 (Given - Provider: Nia Bess, SHELL) Multivitamins with Minerals tablet 1 Tab (CANCELED) 1 Tablet, oral, DAILY, First dose on Brina 06/28/11 at 0900, Until Discontinued, STAT 09 (Not Given - Provider: Soraya Sims RN - Reason: Nausea/Vomiting) 0915 (Given - Provider: Tomasa Campbell, SHELL) 0914 (Given - Provider: Tomasa Campbell, SHELL) ondansetron (PF) (ZOFRAN) injection 4 mg (COMPLETED) 4 mg, intravenous, NOW X1, 1 dose, On Brina 06/28/11 at 0445, STAT 0416 (Given - Provider: Brinda Oliveros, SHELL) Continuous Medication Order 06/28/2011 06/29/2011 06/30/2011 sodium chloride 0.9 % with KCl 20 mEq/L infusion (CANCELED) at 75 mL/hr, intravenous, CONTINUOUS, Starting on Brina 06/28/11 at 0530, Until Brina 06/28/11 at 1115, STAT 0512 (New Bag - Provider: Bhargavi Moeller, SHELL) PRN Medication Order 06/28/2011 06/29/2011 06/30/2011 bisacodyl (DULCOLAX) suppository 10 mg (CANCELED) 10 mg, rectal, EVERY 48 HOURS PRN, Starting on 06/30/11 at 0000, Until 06/30/11 at 1652, Constipation, STAT 1009 (Given - Provider: Tomasa Campbell, SHELL) methocarbamol (ROBAXIN) tablet 500-1,000 mg 500-1,000 mg, oral, EVERY 8 HOURS PRN, Starting on Brina 06/28/11 at 0502, Until 06/30/11 at 1652, Other, muscle spasms, STAT 0629 (Given - Provider: Bhargavi Moeller, SHELL)1615 (Given - Provider: Angella Zelaya) 0027 (Given - Provider: Aliza Gordon)0922 (Given - Provider: Tomasa Campbell RN)1608 (Given - Provider: Tomasa Campbell RN) 1109 (Given - Provider: Tomasa Campbell RN) morphine injection 1-2 mg (CANCELED) 1-2 mg, intravenous, EVERY 4 HOURS PRN, Starting on Brina 06/28/11 at 0502, Until 06/30/11 at 1652, Pain, discomfort, STAT 1807 (Given - Provider: Angella Zelaya) ondansetron (PF) (ZOFRAN) injection 2-4 mg (CANCELED) 2-4 mg, intravenous, EVERY 4 HOURS PRN, Starting on Brina 06/28/11 at 0502, Until 06/30/11 at 1652, Nausea, STAT 0934 (Given - Provider: Soraya Sims, SHELL) oxycodone (ROXICODONE) immediate release tablet 5 mg 5 mg, oral, EVERY 4 HOURS PRN, Starting on 06/29/11 at 0709, Until 06/30/11 at 1652, Pain, discomfort, STAT 0914 (Given - Provider: Tomasa Campbell RN)1332 (Given - Provider: Tomasa Campbell RN)1852 (Given - Provider: Tomasa Campbell RN) 1109 (Given - Provider: Tomasa Campbell RN)1435 (Given - Provider: Tomasa Campbell RN) oxycodone (ROXICODONE) immediate release tablet 5-10 mg (CANCELED) 5-10 mg, oral, EVERY 4 HOURS PRN, Starting on Brina 06/28/11 at 1114, Until 06/29/11 at 0709, Pain, discomfort, STAT 1129 (Given - Provider: Soraya Sims, SHELL)1615 (Given - Provider: Angella Zelaya)2022 (Given - Provider: Angella Zelaya) 0027 (Given - Provider: Aliza Gordon) oxycodone (ROXICODONE) immediate release tablet 5-15 mg (CANCELED) 5-15 mg, oral, EVERY 4 HOURS PRN, Starting on Brina 06/28/11 at 0502, Until Brina 06/28/11 at 1115, Pain, discomfort, STAT 0629 (Given - Provider: Bhargavi Moeller, SHELL) senna (SENOKOT) tablet 1-2 Tab 1-2 Tablet, oral, 2 TIMES DAILY PRN, Starting on 06/30/11 at 0000, Until 06/30/11 at 1652, Constipation, STAT documented in this encounter Orders Medications Ordered That Mo ht Not Have Been Administered Count Last Ordered Date First Ordered Date acetaminophen (TYLENOL) solu tion 325-650 mg 1 06/28/2011 acetaminophen (TYLENOL) supp ository 325-650 mg 1 06/28/2011 acetaminophen (TYLENOL) tablet 325-650 mg 1 06/28/2011 hydrALAzine (APRESOLINE) 10 mg in sodium chloride (NS) 0.9 % 50 mL IVPB 1 06/28/2011 senna (SENOKOT) tablet 1-2 Tab 1 06/28/2011 sodium phosphate (FLEET) enema 1 Enema 1 PT Count Last Ordered Date First Orde red Date PT EVALUATION AND TREAT 1 06/28/2011 Admission Count Last Ordered Date First Orde red Date NOTIFY PPS OF DISCHARGE COMPLETE 1 06/30/19 12 NOTIFY PPS OF ROOM CHANGE COMPLETE 1 2011 ADMIT TO INPATIENT 1 06/28/2011 ADMIT TO OBSERVATION 1 06/28/2011 PPS NOTIFICATION OF PATIENT ARRIVAL ON UNIT 1 06/28/2011 Discharge Count Last Ordered Date First Orde red Date DISCHARGE PATIENT 1 06/30/2011 Equipment Count Last Ordered Date First Orde red Date COMMODE CHAIR(PURCHASE/RENTAL) 1 06/30/2011 WALKER 1 06/30/2011 documented in this encounter Care Teams Research Rn Spec Relationship Specialty Start Date End Date Shelby Pastor MD [address] [address] PCP - General 06/28/11 09/28/18 documented as of this encounter
--- OUTSIDE RECORDS SUMMARY | 2024-01-15 16:51 | XMS_ITS | Encounter Summary ---
[place] [address] Care Team Providers Care Liquid Center Assembler Name Role Phone Shorty Beaulieu Primary Care Provider [phone] Reason for Referral * Psychiatric (Routine) - Closed Specialty Diagnoses / Procedures Referred By Contedward t Referred To Contact Psychiatry Diagnoses Anxiety disorder, unspecified type Shorty Beaulieu PA [address] [place] [address] [facility] [place] [address] Referral ID Status Reason Start Date Expiration Date V isits Requested Visits Authorized [id number] Closed Consult, Test & Treat PCP Updated and/or Approved 02/26/2023 02/26/2024 6 6 Encounter Details Date Type Department Care Team (Latest Contact Info) Description 02/26/2023 Transcribe Orders eDH Incoming Referrals [phone] Shorty Beaulieu PA [address] [place] [address] Anxiety disorder, unspecified type Social History Tobacco Use Types Packs/Day Years Used Date Smoking Tobacco: Former Cigarettes 0.3 3 0 11/03/2011 - 11/02/2014 Smokeless Tobacco: Never Comments:2 to 3 cigarettes d aily Sex and Gender Information Value Date Recorded Sex Assigned at Not on file Gender Identity Not on file Sexual Orientation Not on file documented as of this encounter Plan of Treatment Upcoming Encounters Date Type Department Care Team (Late st Contact Info) Description 01/22/2024 3:30 PM EDT Office [place] [address] Parris Huntley MD [facility] [place] [address] Scheduled Referrals Name Type Priority Associated Diagnoses Orde r Schedule Referral to Psychiatry Outpatient Referral Routine Anxiety disorder, unspecified type Ordered: 02/26/2023 documented as of this encounter Visit Diagnoses Diagnosis Anxiety disorder, unspecified type documented in this encounter Care Teams Liquid Center Assembler Relationship Specialty Start Date End Date Shorty Beaulieu PA [address] [place] [address] PCP - General Internal Medicine 01/16/23 documented as of this encounter
--- OUTSIDE RECORDS SUMMARY | 2024-01-15 16:51 | XMS_ITS | Encounter Summary ---
Author Organization [facility] [place] [address] Care Team Providers Care Oil Field Operator Name Role Phone Siena Jimenez Primary Care Provider + Reason for Visit * Reason Onset Date Comments Medication Refill 12/16/2021 Encounter Details Date Type Department Care Team (Late st Contact Info) Description 12/16/2021 Refill [place] [phone] Zai Perla MD [facility] [place] [place] [address] Hyperprolactinemia Social History Tobacco Use Types Packs/Day Years [...] 3:30 PM EDT Office Visit [place] [phone] Parris Huntley MD [facility] [place] [address] documented as of this encounter Visit Diagnoses Diagnosis Hyperprolactinemia Other and unspecified anterior pituitary hyperfunction documented in this encounter Care Teams Oil Field Operator Relationship Specialty Start Date End Date Siena Jimenez PA [address] [place] [address] [place] [address] PCP - General Internal Medicine 08/03/20 01/15/23 documented as of this encounter
--- OUTSIDE RECORDS SUMMARY | 2024-01-15 16:51 | XMS_ITS | Encounter Summary ---
Author Organization [facility]ending [facility] [place] [address] Care Team Providers Care Cable Swager Name Role Phone Siena Jimenez Primary Care Provider + Reason for Visit * Auth/Cert Specialty Diagnoses / Procedures Referred By Raza gerard Referred To Contact Diagnoses 29 yo with dysmenorrhea Procedures PRO LAP, DIAGNOSTIC ABDOMEN LAPAROSCOPY, DIAGNOSTIC, ABDOMEN (WRVU 5.14) Referral ID Status Reason Start Date Expiration Date Visits Re quested Visits Authorized [id number] 1 1 Encounter Details Date Type Department Care Team (Latest Contact Info) Description 09/23/2020 7:32 AM EDT - 09/23/2020 11:17 AM EDT Hospital Encounter [place] [address] Shakila Mueller MD [facility] [address] OB[place] [address] Chronic pelvic pain in female (Primary Dx) Discharge Disposition: Home Social History Tobacco Use Types Packs/Day Years Used Date Smoking Tobacco: Former Cigarettes Q uit: 11/02/2014 Smokeless Tobacco: Never Sex and Gender Information Value Date Recorded Sex Assigned at Not on file Gender Identity Not on file Sexual Orientation Not on file documented as of this encounter Last Filed Vital Signs Vital Sign Reading Time Taken Comments Blood Pressure 115/64 09/23/2020 11:00 AM EDT Pulse 69 09/23/2020 10:45 AM EDT Temperature 36 ??C (96.8 ??F) 09/23/2020 9:55 AM EDT Respiratory Rate 20 09/23/2020 9:55 AM EDT Oxygen Saturation 99% 09/23/2020 11:00 AM EDT Inhaled Oxygen Concentration - - [...] closest emergency room or call the hospital electric fork operator at [phone] and ask for physician weapons designer covering for your physician. Questions or problems after 5pm or on a weekend: Call the [facility] electric fork operator at and ask for the physician weapons designer covering for your doctor. The [facility] will be closed from 5:30 pm on Saturday09/23/2020 until 06:00 am on Saturday09/27/2020. We will contact you on Saturday09/27/2020 to see how you are progressing. If you have any questions or concerns regarding your procedure during this time, please call the hospital electric fork operator at [phone] and ask for the physician weapons designer covering your surgeon. * Patient Instructions* Najma Leyva N - 09/22/2020 9:10 PM EDT Images from the original note were not included. PATIENT DISCHARGE INSTRUCTIONS Follow up: Our office will call you to set up a follow up visit -if you do not hear from us within a few days,please call to set up a visit in 1-2 months [facility] INDIAN TRADER Department: Call your doctor if you develop: [...] again, temperature will be taken, patient and caregiver/emergency medical technician/driver will be given a mask to wear the entire time they are in the [facility] building. documented in this encounter H&P Notes * Vincent Kaur MD - 09/23/2020 8:25 AM EDT LABORER CUTTING TOOL Interval Pre-op H&P Patient name: Eboni Jackson Date of : 01/03/1954 Date of visit: 09/20/2020 I have reviewed the pre-procedure H&P completed by Dr. Grissom and Dr. Glilis on 09/05/2020. Consents were reviewed and signed. [...] She recently received a brain MRI with [facility] neurology - both a cyst and prolactinoma [...] in the past. Her preferred pharmacy is [facility] in [place], [place]. ??? Surgical consent reviewed ??? ORT [...] Operative Note Patient Name: Rachana Stearns : [id number] MR#: [id number] Case Date: 09/23/2020 Surgeon: Surgeon(s) and Role: [...] Note ?? Patient Name: Rachana Stearns : [id number] MR#: [id number] ?? Case Date: 09/23/2020 ?? Surgeon: Surgeon(s) [...] placed in the dorsal lithotomy position in [facility] in a neurologically neutral position. Examination under [...] 3:30 PM EDT Office [place] [address] Parris Huntley MD [facility] [place] [address] documented as of this encounter Procedures Procedure Name Priority Date/Time Associated Diagnosis Comments CHROMOTUBATION, INCLUDING MATERIALS Routine 09/23/2020 9:43 AM EDT Chronic pelvic pain in female Reopen Fallopian Tube, Chromotubation (96248) 09/23/2020 8:29 AM EDT Chronic pelvic pain [...] Mueller MD POINT OF CARE TEST O BROOKLYNERAGINI documented in this encounter Visit Diagnoses Diagnosis Chronic pelvic pain in female- Primary Unspecified symptom associated with female genital organs documented in this encounter Administered Medications Inactive Administered Medications - up to 3 most recent administrations Medication Order MAR Action Action Date Dose Rate Site fentaNYL (pf) (50 mcg/mL) multi-dose injection [...] Day of Surgery (Day of Procedure), Routine naloxone (Narcan) (0.4 mg/mL) injection 0.04 mg [...] Routine documented in this encounter Care Teams Cable Swager Relationship Specialty Start Date End Date Siena Jimenez PA [address] [place] [address] [place] [address] PCP - General Internal Medicine 08/03/20 01/15/23 documented as of this encounter
--- OUTSIDE RECORDS SUMMARY | 2024-01-15 16:51 | XMS_ITS | Encounter Summary ---
Author Organization [facility] Address [address] [place] [address] Care Team Providers Care Hospital Admissions Clerk Name Role Phone Shelby Pastor MD Primary Care Provider [phone] Reason for Visit * Reason Onset Date Comments Follow-up 07/03/2011 prescription Encounter Details Date Type Department Care Team ([facility] st Contact Info) Description 07/03/[address] [facility] Neurosurgery - Main [place] [address] [place] [address] Stanislaw Barclay MD [address] [place] [phone] Follow-up (prescription) Social History Tobacco Use Types Packs/Day Years [...] encounter Miscellaneous Notes * Telephone Encounter - Lucretia Laureano RN - 07/03/2011 7728 EDT RX for DME (tub transfer bench) printed and faxed to the number provided. * Telephone Encounter - Lucretia Conley - 07/03/2011 1550 EDT They are coordinating care for the patient and need a script for tub transfer bench. It can be faxed to Lucretia Kimbrough at [phone]. documented in this encounter Plan of Treatment Not on file documented as of this encounter Visit Diagnoses Diagnosis Lumbar vertebral fracture (HCC-CMS)- Primary Closed fracture of lumbar vertebra without mention of spinal cord injury documented in this encounter Orders Equipment Count Last Ordered Date First Orde red Date GENERIC DME ORDER 1 07/03/2011 documented in this encounter Care Teams Hospital Admissions Clerk Relationship Specialty Start Date End Date Shelby Pastor MD [address] [address] PCP - General 06/28/11 09/28/18 documented as of this encounter
--- OUTSIDE RECORDS SUMMARY | 2024-01-15 16:51 | XMS_ITS | Encounter Summary ---
Author Organization [facility] [place] [address] Care Team Providers Care Vegetable Farm Worker Name Role Phone Shorty Beaulieu Primary Care Provider [phone] Encounter Details Date Type Department Care Team (Late st Contact Info) Description 01/16/2023 3:00 PM EDT Office [place] [address] Talha Rodriguez, [facility] [place] [address] Hyperprolactinemia Social History Tobacco Use Types Packs/Day [...] Sign Reading Time Taken Comments Blood Pressure 116/74 01/16/2023 2:34 PM EDT Pulse 62 01/16/2023 2:34 PM EDT Temperature 36.7 ??C (98 ??F) 01/16/2023 2:34 PM EDT Respiratory Rate - - Oxygen Saturation 99% 01/16/2023 2:34 PM EDT Inhaled Oxygen Concentration - - Weight 91.2 kg (201 lb) 01/16/2023 2:34 PM EDT Height 170.2 cm (5' 7) 01/16/2023 2:34 PM EDT Body Mass Index 31.48 01/16/2023 2:34 PM EDT documented in this encounter Patient Instructions * Patient Instructions* Talha Rodriguez DO - 01/16/2023 3:00 PM EDT Plan - check PRL. TSH, FT4 - resume cabergoline at higher dose of 0.5mg twice weekly - repeat PRL in 2 months, if suppressed continue dose for 1 year - repeat MRI in 1 year of PRL suppressed, discuss possible cessation of medication at that time documented in this encounter Progress Notes * Talha Rodriguez DO - 01/16/2023 3:00 PM EDT Images from the original note were not included. Ms. Rachana Stearns is an 32 y.o. female who presents for follow up for chief complaint of prolactinoma. Referred by: Siena MUHAMMAD HPI: Patient initially saw Dr. Nunez 08/16/21, at which time her evaluation was as such: Patient is a 30-year-old female previously seen in the clinic in 2017. At that time she presented with complaint of amenorrhea and galactorrhea. Since then she has been treated with cabergoline for the last few years and is followed with endocrinology at [facility]. She is currently taking cabergoline 0.25 mg twice weekly. 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 She feels well and is happy with the results of her treatment at this point. Her breasts are less engorged than previously although she does continue to have some galactorrhea but only with stimulation, not spontaneously. She does not have breast pain with menstrual cyclesas she did previously. She is now having regular menstrual cycles. She does have some ongoing pelvic/abdominal pain that is being investigated. She was told she does not have endometriosis. She was evaluated with a colonoscopy. Currently she is trying elimination diet and thinks there may be some connection between wheat consumption and her symptoms. She denies headache or change in vision. She is only taking cabergoline and Celexa on a regular basis. At that time it was discussed with the patient the possibility of increasing cabergoline medicationto suppress prolactin further. It does not appear this was ever increased, and patient remained on 0.25mg twice weekly. She has been doing well on the medication with normal menstruation and minimal galactorrhea. She does note that she has run out of the medication the past 3 weeks. Review of Systems 12 point review of systems negative except for what has been documented above Past Surgical History: Procedure Laterality Date PRO LAP, DIAGNOSTIC ABDOMEN Midline 09/23/2020 LAPAROSCOPY, DIAGNOSTIC, ABDOMEN (WRVU 5.14) performed by Shakila Mueller MD at [facility] PRO REOPEN FALLOPIAN TUBE, CHROMOTUBATION N/A 09/23/2020 CHROMOTUBATION, INCLUDING MATERIALS (WRVU 1.06) performed by Shakila Mueller MD at [facility] Social History Socioeconomic History Marital status: Single Spouse name: Not on file Number of children: Not on file Years of education: Not on file Highest education level: Not on file Occupational History Not on file Tobacco Use Smoking status: Former Packs/day: 0.25 Years: 3.00 Additional pack years: 0.00 Total pack years: 0.75 Types: Cigarettes Quit date: 11/02/2014 Years since quittin.2 Smokeless tobacco: Never Tobacco comments: 2 to 3 cigarettes daily Vaping Use Vaping Use: Never used Substance and Sexual Activity Alcohol use: Not on file Drug use: Not on file Sexual activity: Not on file Other Topics Concern Not on file Social History Narrative Not on file Social Determinants of Health Financial Resource Strain: Not on file Food Insecurity: Not on file Transportation Needs: Not on file Physical Activity: Not on file Intimate Partner Violence: Not on file Housing Stability: Not on file Current Outpatient Medications: cabergoline (DOSTINEX) 0.5 mg Tablet, Take 0.5 tablets by mouth twice a week., Disp: 10 tablet, Rfl: 3 multivitamin (THERAGRAN) Tablet, Take 1 tablet by mouth daily., Disp: , Rfl: oxyCODONE (Roxicodone) 5 mg Tablet, Take 1 tablet by mouth every 4 hours as needed for Pain., Disp:5 tablet, Rfl: 0 acetaminophen (Tylenol) 325 mg Tablet, Take 2 tablets by mouth every 6 hours as needed for Pain., Disp: 30 tablet, Rfl: 1 citalopram (CeleXA) 20 mg Tablet, 20 mg., Disp: , Rfl: ibuprofen (Advil;Motrin) 200 mg Tablet, Take 600 mg by mouth every 6 hours as needed for Pain. OTC,Disp: , Rfl: traMADoL (Ultram) 50 mg Tablet, Take 50 mg by mouth as needed., Disp: , Rfl: hydrOXYzine (Atarax) 25 mg Tablet, Take 25 mg by mouth as needed., Disp: , Rfl: citalopram (CELEXA) 10 mg Tablet, Take 30 mg by mouth daily., Disp: , Rfl: Allergies Allergen Reactions Avocado Itching Honey Kiwi (Actinidia Chinensis) Physical Exam: Patient Vitals for the past 24 hrs: Temp Pulse BP SpO2 01/16/23 1434 36.7 ??C (98 ??F) 62 116/74 99 % General: no acute distress, pleasant, sitting comfortably Eyes: no lid lag; normal eye movements, VF intact Musculoskeletal: moving all 4 extremities normally Skin: normal no jaundice or pallor Neurological: normal gait Psychological: alert/oriented to person, place, time; normal affect; memory intact; normal judgement/insight Radiology Studies: Laboratory Data: Latest Reference Range & Units 11/02/16 13:59 Free T4 0.93 - 1.70 ng/dL 0.96 TSH 0.27 - 4.20 mlU/ML 1.09 FSH mlU/ML 5.6 [1] LH mlU/ML 9.0 [2] Prolactin 4.8 - 23.3 ng/mL 83.1 (H) IgF-1 78 - 270 ng/mL 122 [3] Assessment / Plan: #Microprolactinoma 30 YO F w/ h/o microprolactinoma which has been treated with cabergoline for several years. She hasbeen on 0.25mg twice weekly for over a year and a half since her last visit with Dr. Nunez, buther prolactin levels never appear to have been suppressed. Prolactinoma only 2.5mm and therefore isamenable to shrinking if we can suppress prolactin levels to normal range. I would recommend we increase cabergoline to 0.5mg weekly and check prolactin levels in 2 months. If they are still elevatedwe can discuss further increasing dose to suppress prolactin. Ideally would suppress prolactin for ~ 1 year until repeat MRI to determine whether she would be a good candidate for tapering the medication. Idea would be to get patient off medication to reduce medication burden and since patient doeshave history of bicuspid aortic valve. Patient has had intermittently low and insignificant free T4, can recheck today but unless significantly deranged will likely continue to monitor. We discussed side effects of medication including nausea, nightmares, increased risk taking behavior, and heart valve abnormalities. Plan - check PRL. TSH, FT4 - resume cabergoline at higher dose of 0.5mg twice weekly - repeat PRL in 2 months, if suppressed continue dose for 1 year - repeat MRI in 1 year of PRL suppressed, discuss possible cessation of medication at that time Return to clinic in 12 months Discussed with attending physician, Dr. Goodwin. It was a pleasure to be involved in the care of Rachana Stearns. If you have any questions about the management and treatment plan as outlined above, or if I can be of further assistance, please donot hesitate to contact me. Sincerely, Talha Rodriguez DO Endocrinology Fellow * Perfecto Goodwin MD - 01/16/2023 3:00 PM EDT I have seen the patient and reviewed Dr Rodriguez's history and I agree with the details as written. The assessment and plan were formulated in discussion with me and I agree with them as documented. Perfecto Goodwin MD Fleet Salespersonend trimmer Endocrinology Section [facility] documented in this encounter Miscellaneous Notes * Addendum Note - Perfecto Goodwin MD - 01/16/2023 3:00 PM EDTAddended by: PERFECTO GOODWIN on: 01/20/2023 03:50 PM Modules accepted: Level of Service documented in this encounter Plan of Treatment Upcoming Encounters Date Type Department Care Team (Late st Contact Info) Description 01/22/2024 3:30 PM EDT Office Visit [place] [address] Parris Huntley MD [facility] [place] [address] documented as of this encounter Results * urine, qualitative ([place]/[facility]/CGP/[place]) (01/16/2023 4:03 PM EDT) [facility] Specific [place] Urine Automated 1.015 1.006 - 1.030 [facility] Human Chorionic Gonadotropin Qualitative, Urine Negative [facility] Comment: Dilute urine samples can result in a false negative test. Repeat testing on a first morning sample or a plasma quantitative hCG measurement is recommended. Urine 01/16/2023 4:03 PM EDT 01/16/2023 4:17 PM EDT Narrative Resulting Agency Comment Spec In Lab Perfecto Goodwin MD URINE ORDERABLES Performing Organization Address City/[facility]/ZIP Co de Phone Number [facility] [place] [address] * TSH (01/16/2023 3:42 PM EDT) [facility] Thyroid Stimulating Hormone 1.15 0.27 - 4.20 mcIU/mL [facility] Comment: Reference Interval (mcIU/mL): Females: ??First Trimester: 0.23-3.88 ??Second Trimester: 0.22-3.90 ??Third Trimester: 0.44-4.66 Blood 01/16/2023 3:42 PM EDT 01/16/2023 3:57 PM EDT Narrative Resulting Agency Comment Spec In Lab Perfecto Goodwin MD CHEMISTRY ORDERABLE S [facility] [place] [address] * (ABNORMAL) T4, free (01/16/2023 3:42 PM EDT) [facility] Free T4 0.91(L) 0.93 - 1.70 ng/dL [facility] Comment: Reference Interval (ng/dL): Females: ??First Trimester: 0.97-1.68 ??Second Trimester: 0.77-1.51 ??Third Trimester: 0.77-1.49 Blood 01/16/2023 3:42 PM EDT 01/16/2023 3:57 PM EDT Narrative Resulting Agency Comment Spec In Lab Perfecto Goodwin MD CHEMISTRY ORDERABLE S Performing Organization Address City/[facility]/ZIP Co de Phone Number [facility] [place] [address] * (ABNORMAL) Prolactin (01/16/2023 3:42 PM EDT) Prolactin 57.7(H) 4.8 - 23.3 ng/mL [facility] Blood 01/16/2023 3:42 PM EDT 01/16/2023 3:57 PM EDT Narrative Resulting Agency Comment Spec In Lab Perfecto Goodwin MD CHEMISTRY ORDERABLE S Performing Organization Address [facility] Co de Phone Number [facility] [place] [address] documented in this encounter Visit Diagnoses Diagnosis Hyperprolactinemia Other and unspecified anterior pituitary hyperfunction documented in this encounter Care Teams Vegetable Farm Worker Relationship Specialty Start Date End Date Shorty Beaulieu PA [address] [place] [address] PCP - General Internal Medicine 01/16/23 documented as of this encounter
--- OUTSIDE RECORDS SUMMARY | 2024-01-15 16:51 | XMS_ITS | Encounter Summary ---
Author Organization [facility] Address [address] [place] [address] Care Team Providers Care Certified Coatings Inspector Name Role Phone Shelby Pastor MD Primary Care Provider [phone] Reason for Visit * Reason Comments Follow-up s/p thrown from sled accident landing on back Encounter Details Date Type Department Care Team (Late st Contact Info) Description 07/24/2011 13:00 EDT Office Visit [facility] Neurosurgery - [facility] [address], [place] [id number] Kyara Lund PA-C [address] [facility], [address] [place] [address] Fracture of second lumbar vertebra (CMS-HCC) (HCC-CMS) [...] Sign Reading Time Taken Comments Blood Pressure 132/70 07/24/2011 1309 EDT Pulse 68 07/24/2011 1309 EDT Temperature - - Respiratory Rate 18 07/24/2011 1309 EDT Oxygen Saturation - - Inhaled Oxygen Concentration - - Weight - - Height - - Body Mass Index - - documented in this encounter Functional Status Cognitive Status Response Date of Assessm ent Because of a physical, menta l, or emotional condition, do you have serious difficulty concentrating, remembering, or making decisions? (5 years old or older) Yes 06/28/2011 documented as of this encounter Ordered Prescriptions Prescription Sig Dispensed Refills Start Date End Da te oxycodone (ROXICODONE) 5 mg immediate release tablet Take 1 Tab by mouth every 4 hours as needed for Pain (discomfort). 60 Tab 0 07/24/2011 10/24/2011 methocarbamol (ROBAXIN) 500 mg tablet Take 1-2 Tabs by mouth every 8 hours as needed (muscle spasms). 80 Tab 0 07/24/2011 10/24/2011 documented in this encounter Progress Notes * Kyara Lund, JB - 07/25/2011 0756 EDT DIVISION OF NEUROSURGERY PROGRESS/FOLLOWUP NOTE - 07/24/2011 [place] [address] Pastor: I saw Rachana Stearns back in our neurosurgical clinic today in followup. As you know, she sustained an L2 burst fracture, while cardboard box sledding in [place]. She has been treated in an [place] TLSObrace and is here for her one-month followup. She states that her pain is still present but is decreasing as the days go by. She is still taking one oxycodone per day, but manages most of her pain with Tylenol. She is using a rolling walker but walks at times with a cane as well. In general, she feels that she is improving. Objective: Vital signs: Blood pressure 132/70, pulse 68, respirations 18. The patient is awake, alert and oriented x3. She is in no apparent distress. Her strength is grossly full in all four extremities. Bulk and tone are normal. Skin is without rashes or lesions. Breathing is not labored. EOMs are intact. Hearing is intact to gross assessment. Radiographic Evidence: The patient has had plain film x-ray of her lumbar spine. I have personally reviewed this film. This shows an L2 fracture. When compared with the previous x-ray, it appears to be stable with no changes. Impression: L2 fracture. Plan: The patient will continue in her TLSO brace. We will see her back in 1 month for a followup x-ray. She will continue to increase her activities and avoid lifting, twisting and bending. She willwear her brace at all times. Thank you for involving us in this patient's care. Sincerely, Supervising Physician Electronically Signed by Stanislaw Barclay MD 08/01/2011 17:05 JB Alexis Stanislaw Barclay MD Farmer Cash Grain [facility] Division of Neurological Surgery - JB Alexis - KEARA Job ID: SM Doc ID: [id number] Ext Doc ID: [id number] cc: Shelby Pastor MD * Kyara Lund PA - 07/24/2011 1337 EDT This office note has been dictated. documented in this encounter Plan of Treatment Not on file documented as of this encounter Visit Diagnoses Diagnosis Fracture of second lumbar vertebra ([facility]-CMS)- Primary Closed fracture of lumbar vertebra without mention of spinal cord injury documented in this encounter Discontinued Medications Medication Sig Discontinue Reason Start Date End Da te docusate sodium (COLACE) 100 mg capsule Take 1 Cap by mouth 2 times daily. 06/29/2011 07/24/2011 senna (SENOKOT) 8.6 mg tablet Take 1-2 Tabs by mouth 2 times daily as needed. 06/29/2011 07/24/2011 methocarbamol (ROBAXIN) 500 mg tablet Take 1-2 Tabs by mouth every 8 hours as needed (muscle spasms). Reorder 06/30/2011 07/24/2011 oxycodone (ROXICODONE) 5 mg immediate release tablet Take 1 Tab by mouth every 4 hours as needed for Pain (discomfort). Reorder 06/29/2011 07/24/2011 documented as of this encounter Historical Medications * This list may reflect changes made after this encounter. Medication Sig Dispensed Refills Start Date End Date citalopram (CELEXA) 10 mg tablet Take 10 mg by mouth daily. added in this encounter Care Teams Certified Coatings Inspector Relationship Specialty Start Date End Date Shelby Pastor MD [address] [address] PCP - General 06/28/11 09/28/18 documented as of this encounter
--- OUTSIDE RECORDS SUMMARY | 2024-01-15 16:51 | XMS_ITS | Encounter Summary ---
Author Organization [facility] Address [address] [place] [address] Care Team Providers Care [place] Former Machine Operator Name Role Phone Shelby Pastor MD Primary Care Provider [phone]- [phone] Encounter Details Date Type Department Care Team (Late st Contact Info) Description 09/25/2011 10:59 EDT - 09/25/2011 23:59 EDT Hospital Encounter [address] [address] Kyara Lund PA-C [address] [facility], [address] [place] [id number] Discharge Disposition: Home or Self Care Social [...] 0.5 Tabs by mouth twice a week. 8 Each 11 09/13/2011 10/14/2018 methocarbamol (ROBAXIN) 500 mg tablet Take 1-2 Tabs by mouth every 8 hours as needed (muscle spasms). 80 Tab 0 07/24/2011 10/24/2011 oxycodone (ROXICODONE) 5 mg immediate release tablet Take 1 Tab by mouth every 4 hours as needed for Pain (discomfort). 60 Tab 0 07/24/2011 10/24/2011 documented as of this encounter Discharge Disposition Disposition Code Departure Means Destination Home or Self Correction documented in this encounter Plan of Treatment Not on file documented as of this encounter Visit Diagnoses Not on filedocumented in this encounter Care Teams [place] Former Machine Operator Relationship Specialty Start Date End Date Shelby Pastor MD [address] [address] PCP - General 06/28/11 09/28/18 documented as of this encounter
--- OUTSIDE RECORDS SUMMARY | 2024-01-15 16:51 | XMS_ITS | Encounter Summary ---
Author Organization [facility] Address [address] [place] [address] Care Team Providers Care Concrete Inspector Name Role Phone Siena Jimenez Primary Care Provider + Reason for Visit * Reason Comments Galactorrhea * Referral (Routine) - Closed Specialty Diagnoses / Procedures Referred By Raza gerard Referred To Contact Endocrinology Diagnoses Galactorrhea Siena Jimenez PA [address] [place] [address] [place] [address] [address] Referral ID Status Reason Start Date Expiration Date Visits Re quested Visits Authorized [id number] Closed 1 1 Encounter Details Date Type Department Care Team (Late st Contact Info) Description 10/10/2018 13:40 EDT Office Visit [facility] Endocrinology - [address] [address] Parvez Wright MD [address] [address] Galactorrhea (Primary Dx); Hyperprolactinemia (HCC-CMS); Amenorrhea Social History Tobacco Use Types Packs/Day Years [...] EDT Pulse 63 10/10/2018 1339 EDT Temperature - - Respiratory Rate - - Oxygen Saturation - - Inhaled Oxygen Concentration - - Weight 90.7 kg (199 lb 14.4 oz) 10/10/2018 1339 EDT Height 168.9 cm (5' 6.5) 10/10/2018 1339 EDT Body Mass Index 31.78 10/10/2018 1339 EDT documented in this encounter Functional Status Cognitive Status Response Date of Assessm ent Because of a physical, menta l, or emotional condition, do you have serious difficulty concentrating, remembering, or making decisions? (5 years old or older) Yes 06/28/2011 documented as of this encounter Patient Instructions * Patient Instructions* Parvez Wright MD - 10/10/2018 13:40 EDT Bromocriptine or cabergoline or OCPs Labs in [place], all fasting IGF, Estradiol, testosterone panel, 17-oh progesterone documented in this encounter Progress Notes * Parvez Wright MD - 10/10/2018 1340 EDT 10/10/2018 NEW PATIENT PATIENT: Rachana Stearns CHIEF COMPLAINT Galactorrhea HISTORY OF PRESENT ILLNESS Rachana Stearns is a very pleasant 27 y.o. female who presents with galactorrhea HPI First appointment October 102018 This patient was seen by Dr. Kulkarni who was an warehouse and receiving supervisor in our division in 2011. At that time, she was seen in consultation for hyperprolactinemia and secondary amenorrhea. Menarche was aroundage 10. Periods were initially regular every 30 [...] imaging, I cannot find a report in epic. Today she reports: She added that she [...] ??? Smoking status: Former Smoker Types: Cigarettes Last attempt to quit: 10/11/2015 Years since quittin.0 ??? Smokeless tobacco: Never Used Substance Use Topics ??? Alcohol use: Yes Alcohol/week: 2.5 oz Types: 5 Standard drinks or equivalent per week ??? Drug use: Not on file MEDICATIONS Current Outpatient Medications Medication Sig Dispense Refill ??? acetaminophen (TYLENOL) 500 mg tablet Take 2 Tabs by mouth every 6 hours. ??? cabergoline (DOSTINEX) 0.5 mg tablet Take 0.5 Tabs by mouth twice a week. (Patient not taking: Reported on 10/10/2018) 8 Each 11 ??? citalopram (CELEXA) 10 mg tablet Take [...] brake from OCPs therefore stopped them. VITALS Vitals: 10/10/18 1339 BP: 118/63 Pulse: 63 Weight: 90.7 kg (199 lb 14.4 oz) Height: 168.9 cm (66.5) PHYSICAL EXAM Nursing note and vitals reviewed.Constitutional: She is oriented to person, place, and time. She appears well-developed and well-nourished. No distress. HENT: Head: Normocephalic and atraumatic. Mouth/Throat: Oropharynx is clear and moist. Eyes: Conjunctivae and EOM are normal. Pupils are equal, round, and reactive to light. Neck: Normal range of motion. Neck supple. No JVD present. No tracheal deviation present. No thyromegaly present. Cardiovascular: Normal rate, regular rhythm, normal heart sounds and intact distal pulses. Pulmonary/Chest: Effort normal and breath sounds normal. No respiratory distress. Abdominal: Soft. Genitourinary: Genitourinary Comments: Galactorrhea noticed on both breasts. There is no abnormal appearance to the nipple discharge. I do not palpate any lumps. Her left sided nipple is inverted but she tells me that she has had this since she was a teenager Musculoskeletal: Normal range of motion. She exhibits no edema or deformity. Lymphadenopathy: She has no cervical adenopathy. Neurological: She is alert and oriented to person, place, and time. No cranial nerve deficit or sensory deficit. She exhibits normal muscle tone. Coordination normal. Skin: Capillary refill takes less than 2 seconds. She is not diaphoretic. No hirsutism No easy bruising-she bruised on her right thigh but she was moving and she bumped into a cabinet Multiple excoriations on her chest and abdomen consistent with the HPI Psychiatric: She has a normal mood and affect. Her behavior is normal. Judgment and thought contentnormal. ASSESSMENT 1. Galactorrhea IGF-1, LC/MS, S ESTRADIOL, ADULTS 2. Hyperprolactinemia (HCC-CMS) IGF-1, LC/MS, S ESTRADIOL, ADULTS 3. Amenorrhea IGF-1, LC/MS, S ESTRADIOL, ADULTS 17 OH-PROGESTERONE TESTOSTERONE, TOTAL AND FREE She has only mild elevation in prolactin values Cabergoline was a stopped more than a year ago She has oligomenorrhea and in addition to the elevated prolactin we are going to check for estrogenand 17 hydroxyprogesterone to rule out PCOS and or CAH I offered the patient the following treatments. #1 she can be prescribed OCP by her primary care physician and prolactin values should be monitored 6 months after and then yearly if there is not a significant elevation in prolactin (less than 2 fold; if higher than that, monitor more frequently) #2 she can take bromocriptine 2.5 mg daily which can be increased every week by 2.5 mg daily to a maximum of 10 mg daily to keep prolactin values in the normal range. If she continued to have oligomenorrhea she should be offered OCPs (of both estrogen and progesterone) We will call [facility] for the report of her brain MRI If her baseline MRI is normal, I do not think that there is a need to do more imaging because of her normal TFTs, only slightly elevated her prolactin, no symptoms consistent with ACTH deficiency, ifother lab work ordered are normal She agreed to call us to make sure we got the report of the MRI as well as the tests that we ordered and she will do locally PLAN See above Parvez Chong MD 10/10/2018 14:53 documented in this encounter Plan of Treatment Not on file documented as of this encounter Visit Diagnoses Diagnosis Galactorrhea- Primary Galactorrhea not associated with childbirth Hyperprolactinemia (HCC-CMS) Other and unspecified anterior pituitary hyperfunction Amenorrhea Absence of menstruation documented in this encounter Care Teams Concrete Inspector Relationship Specialty Start Date End Date Siena Jimenez PA [address] [place] [address] [place] [id number] PCP - General 09/29/18 documented as of this encounter
--- OUTSIDE RECORDS SUMMARY | 2024-01-15 16:51 | XMS_ITS | Encounter Summary ---
Author Organization [facility] [place] [address] Care Team Providers Care Tank Pumper Name Role Phone Shorty Beaulieu Primary Care Provider [phone] Encounter Details Date Type Department Care Team (Late st Contact Info) Description 02/19/2023 Telephone Psychiatry and Behavioral [place] [phone] Brandi Perez, RN Social History Tobacco Use Types Packs/Day Years Used Date Smoking Tobacco: Former Cigarettes 0.3 3 0 11/03/2011 - 11/02/2014 Smokeless Tobacco: Never Comments:2 to 3 cigarettes d aily Sex and Gender Information Value Date Recorded Sex Assigned at Not on file Gender Identity Not on file Sexual Orientation Not on file documented as of this encounter Miscellaneous Notes * Telephone Encounter - Brandi Perez RN - 02/19/2023 12:20 PM EST Patient called crisis line. She was given number by RN in endocrinology today when she mentioned tothem that she has been having worsening mental health. She reports she has history of SI/self harm as teenager but has not had issues in decades. She reports she recently started cabergoline last month through her endocrinology clinic and noticed she washaving worsening depression. She notified the providers and was able to get this medication stopped, but she is unsure if it is only the medication that is causing her mood disturbances, as she normally has SAD and her job has been weighing on her as well. She reports she is currently safe to self and she doesn't have active SI, but notices a few times aweek that she has passive SI thoughts. She is not currently a outpatient psych patient, but this RN gave her some ideas as far as a plan moving forward. Suggested she reach out to her PCP lisa and explain the situation and request a visit this week. During this visit I suggested talking about medications and also referrals for mental health care. I explained to her how to have her provider put in a referral for [facility] outpatient psychiatry. I also made sure she had the gualberto number and the 988 hotline number and explained she can access help 15/10 with these numbers. I also explained that if she is feeling actively feeling suicidal she shouldgo to the ED where she will then be eval'd by our crisis team and a referral can be made there if appropriate. Patient was appreciate of the plan. I also told her I would let her security technician. Dr Rodriguez, knowand see if they would put in a referral. documented in this encounter Plan of Treatment Upcoming Encounters Date Type Department Care Team (Late st Contact Info) Description 01/22/2024 3:30 PM EDT Office Visit End[place] [address] Parris Huntley MD [facility] [place] [address] documented as of this encounter Visit Diagnoses Not on filedocumented in this encounter Care Teams Tank Pumper Relationship Specialty Start Date End Date Shorty Beaulieu PA [address] [place] [address] PCP - General Internal Medicine 01/16/23 documented as of this encounter
--- OUTSIDE RECORDS SUMMARY | 2024-01-15 16:51 | XMS_ITS | Encounter Summary ---
Author Organization [facility] Address [address] [place] [address] Care Team Providers Care Washing And Screening Plant Supervisor Name Role Phone Shelby Pastor MD Primary Care Provider [phone] Reason for Referral * Radiology Services (Routine/Next Available) - Closed Specialty Diagnoses / Procedures Referred By Contac t Referred To Contact Diagnoses Closed fracture of lumbar vertebra without mention of spinal cord injury Procedures L SPINE 2-3 VIEWS Kyara Lund PA-C [address] [place] [phone] Referral ID Status Reason Start Date Expiration Date Visits Re quested Visits Authorized [id number] Closed 08/23/2011 1 1 Encounter Details Date Type Department Care Team (Late st Contact Info) Description 08/23/2011 Orders Only [facility] Neurosurgery - [address] [address] Kyara Lund PA-C [address] [place] [phone] Fx lumbar vertebra-closed (Primary Dx) Social [...] Diagnosis Comments L SPINE 2-3 VIEWS Routine 08/24/2011 11: 32 EDT Fx lumbar vertebra-closed documented in this encounter Results * L SPINE 2-3 VIEWS (08/24/2011 11:32 EDT) Anatomical Region Laterality Modality Other 08/24/2011 11:3 2 EDT 08/24/2011 16:26 EDT Narrative 08/24/2011 16:26 EDT L SPINE 2-3 VIEWS ??Aug 24, 2011 11:32:00 AM Signs and Symptoms/Comments: ??Fracture lumbar vertebra, L2 fracture. Comparison: Examination July 24, 2011. Findings: There may be slight increased sclerosis of the superior compression fracture of L2, suggesting healing. The overall degree of compression of the superior endplate of L2 is stable. Procedure Note 08/24/2011 L SPINE 2-3 VIEWS Aug 24, 2011 11:32:00 AM Signs and Symptoms/Comments: Fracture lumbar vertebra, L2 fracture. Comparison: Examination July 24, 2011. Findings: There may be slight increased sclerosis of the superior compression fracture of L2, suggesting healing. The overall degree of compression of the superior endplate of L2 is stable. Kyara Lund PA-C IMG DIAGNOS TIC IMAGING ORDERABLES documented in this encounter Visit Diagnoses Diagnosis Closed fracture of lumbar vertebra without mention of spinal cord injury- Primary documented in this encounter Care Teams Washing And Screening Plant Supervisor Relationship Specialty Start Date End Date Shelby Pastor MD [address] [address] PCP - General 06/28/11 09/28/18 documented as of this encounter
--- OUTSIDE RECORDS SUMMARY | 2024-01-15 16:51 | XMS_ITS | Encounter Summary ---
[place] [address] Care Team Providers Care Pool Lifeguard Name Role Phone Shorty Beaulieu Primary Care Provider [phone] Encounter Details Date Type Department Care Team (Latest Contact Info) Description 01/16/2023 Travel Social History Tobacco Use Types Packs/Day Years [...] 3:30 PM EDT Office [place] [address] Parris Huntley MD [facility] [place] [address] documented as of this encounter Visit Diagnoses Not on filedocumented in this encounter Care Teams Pool Lifeguard Relationship Specialty Start Date End Date Shorty Beaulieu PA [address] [place] [address] PCP - General Internal Medicine 01/16/23 documented as of this encounter
--- OUTSIDE RECORDS SUMMARY | 2024-01-15 16:51 | XMS_ITS | Encounter Summary ---
Author Organization [facility] Address [address] [place] [address] Care Team Providers Care Counter Attendant Name Role Phone Shelby Pastor MD Primary Care Provider [phone] Reason for Visit * Reason Onset Date Comments Requesting Sooner Appointment 09/13/2016 sc heduled for 10.17 w/ Dr. Guzman and would like a sooner appt please call Encounter Details Date Type Department Care Team (Late st Contact Info) Description 09/13/2016 Telephone [facility] Endocrinology - [address] [address] Deann Guzman MD PhD [address] [place] [address] [address] [place] [address] Requesting Sooner Appointment (scheduled for 10.17 w/ Dr. Guzman and would like a sooner appt please call ) Social History Tobacco Use Types Packs/Day Years [...] encounter Miscellaneous Notes * Telephone Encounter - Hector oHwe - 09/13/2016 0853 EDT Patient scheduled for 01.08 and would like a sooner appt w/ Dr. Guzman. Please call her back. documented in this encounter Plan of Treatment Not on file documented as of this encounter Visit Diagnoses Not on filedocumented in this encounter Care Teams Counter Attendant Relationship Specialty Start Date End Date Shelby Pastor MD [address] [address] PCP - General 06/28/11 09/28/18 documented as of this encounter
--- OUTSIDE RECORDS SUMMARY | 2024-01-15 16:51 | XMS_ITS | Encounter Summary ---
Author Organization [facility] [place] [address] Care Team Providers Care Senior Net Engineer Name Role Phone Shorty Beaulieu Primary Care Provider [phone] Encounter Details Date Type Department Care Team (Late Contact Info) Description 02/19/2023 Telephone [place] [phone] [address] [facility] [place] [address] Social History Tobacco Use Types Packs/Day Years [...] 3:30 PM EDT Office [place] [phone] Parris Huntley MD [facility] [place] [address] documented as of this encounter Visit Diagnoses Diagnosis Hyperprolactinemia Other and unspecified anterior pituitary hyperfunction documented in this encounter Care Teams Senior Net Engineer Relationship Specialty Start Date End Date Shorty Beaulieu PA [address] [place] [address] PCP - General Internal Medicine 01/16/23 documented as of this encounter
--- OUTSIDE RECORDS SUMMARY | 2024-01-15 16:51 | XMS_ITS | Encounter Summary ---
[place] [address] Care Team Providers Care Restaurant General Manager Name Role Phone Siena Jimenez Primary Care Provider + Reason for Visit * Auth/Cert Specialty Diagnoses / Procedures Referred By Raza gerard Referred To Contact Diagnoses 29 yo with dysmenorrhea Procedures PRO LAP, DIAGNOSTIC ABDOMEN LAPAROSCOPY, DIAGNOSTIC, ABDOMEN (WRVU 5.14) Referral ID Status Reason Start Date Expiration Date Visits Re quested Visits Authorized [id number] 1 1 Encounter Details Date Type Department Care Team (Late st Contact Info) Description 09/23/2020 8:28 AM EDT Anesthesia Event [facility] [place] [address] Dawit Burdick MD [facility] [place] [address] Oneal Pulliam MD [facility] [place] [address] Anesthesia Record Procedure Summary Procedure Name Responsible Anesthesiologist Anesthesia Start Time Anesthesia Stop Time LAPAROSCOPY, DIAGNOSTIC, ABDOMEN (WRVU 5.14) (Midline: Uterus) Dawit Burdick MD 09/23/20 0828 09/23/20 0958 Events Date Time Event Comment 09/23/2020 0810 0828 AN Verify 0828 Start 0830 An Start Data 0833 An Induction 0837 An Intubation 0841 Anesthesia Ready 0950 Extubation/LMA Out 0952 an stop data 0955 Recovery or ICU Handoff Stormy ent care was transferred to the destination unit staff after review of the patient's medical history, current anesthetic/surgical status and plan, according to the Provider Handoff Checklist. 0958 Stop Meds Name Total Midazolam 2 mg fentaNYL 100 mcg IV Lidocaine 50 mg Propofol 210 mg Propofol INF 394.55 mg Dexmedetomidine 4 mcg Dexamethasone 8 mg Ondansetron 8 mg Ketorolac 30 mg Rocuronium 40 mg ePHEDrine 15 mg Lidocaine 4% LTA 4 mL lactated ringers infusion 1,200 mL * Agents Name O2 Air N2O Sevoflurane (et) * Blood No blood administrations on file. Lines, Drains, and Airways Type Details Placement Removal (RETIRED) Peripheral IV Line - Single Lumen 09/23/20; 0747; metacarpal vein (top of hand), left; [id number] catheter system; 22 gauge; 09/23/20; 1121 09/23/20 0747 by Gisell Dickerson RN 09/23/20 1121 by Latesha Huff RN NG/OG Tube 09/23/20; 0837; orogastric; 16 Fr; center mouth; Secured; during laryngoscopy under direct visualization and atraumatic. Low constant suction.; 09/23/20; 0944 09/23/20 0837 by Leah Spencer CRNA 09/23/20 0944 by Leah Spencer CRNA ETT Mask Ventilation: Ea sy (1); ETT Type: Cuffed, Oral; ETT Size: 6.5 mm; Mac Blade: 3; Notes: Asleep, Pre-O2, Stylette; Attempts: 1; Laryngoscopy Grade: 1; Secured at Teeth: 22 cm; Inserted by: Tj PEREIRA; Removal Date: 09/23/20; Removal Time: 0950 09/23/20 0842 by Leah Spencer CRNA 09/23/20 0950 by Leah Spencer CRNA Urethral Catheter 09/23/20; 0903; Genitourinary surgery; Recent urologic surgery; indwelling double lumen catheter; 100% silicone; 18; inserted at this facility; 1; 5; urethral catheter removed; 09/23/20; 1121 07/02/21 0903 by Sade Chavez RN 09/23/20 1121 by Latesha Huff RN Incision 09/23/20; 0907; umbi lical area; 11/20/21 (LDA cleanup utility RA#[id number]); 1715 (LDA cleanup utility RA#[id number]) 09/23/20 0907 by Sade Chavez RN 11/20/21 1715 by Rory Dvoer documented in this encounter Social History Tobacco Use Types Packs/Day Years Used Date Smoking Tobacco: Former Cigarettes Q uit: 11/02/2014 Smokeless Tobacco: Never Sex and Gender Information Value Date Recorded Sex Assigned at Not on file Gender Identity Not on file Sexual Orientation Not on file documented as of this encounter OR Notes * Anesthesia Postprocedure Evaluation - Dawit Burdick MD - 09/23/2020 10:23 AM EDT Department of Anesthesiology Post-procedure Note Patient: Rachana Stearns Procedure Summary Date: 09/23/20 Room / Location: [facility] OR [address] [place] [address] OSC Anesthesia Start: 827 Anesthesia Stop: 957 Procedures: LAPAROSCOPY, DIAGNOSTIC, ABDOMEN (WRVU 5.14) (Midline Uterus) CHROMOTUBATION, INCLUDING MATERIALS (WRVU 1.06) (N/A Uterus) Diagnosis: Chronic pelvic pain in female (29 yo with dysmenorrhea) Surgeons: Shakila Mueller MD Responsible Provider: Dawit Burdick MD Anesthesia Type: general ASA Status: 2 All Anesthesia Providers: Anesthesiologist: Dawit Burdick MD CLEATER: Leah Spencer CRNA Vitals Value Taken Time BP 134/73 09/23/20 1015 Temp 36 ??C (96.8 ??F) 09/23/20 0955 Pulse 77 09/23/20 1022 Resp 20 09/23/20 0955 SpO2 98 % 09/23/20 1022 Pain Level Vitals shown include unvalidated device data. Patient Location: PACU/[facility] Level of Consciousness: Awake and Alert Pain Management: Satisfactory Analgesia PONV: None Cardiovascular Status: At Baseline Respiratory Status: At Baseline Postoperative Fluid Status: Intravascular EUvolemia Possible Anesthetic Complications: NONE apparent at time of evaluation Final Primary Anesthesia Type: General (The anesthetic type performed was the same as planned.) Comments: * Anesthesia Preprocedure Evaluation - Dawit Burdick MD - 09/23/2020 7:53 AM EDT Images from the original note were not included. Pre-Anesthesia Evaluation for: Rachana Stearns a 29 y.o. female. Procedure(s): LAPAROSCOPY, DIAGNOSTIC, ABDOMEN (WRVU 5.14) Patient Active Problem List Diagnosis ??? Bicuspid aortic valve Mild-moderate aortic insufficiency per echo 08/2020 (see below, also in scanned media) Sleep Medicine Physician Dr. Stanislaw Chanel, [facility] ??? Depression with anxiety ??? Dysmenorrhea ??? [...] Physical Exam: Preprocedure Vitals Current as of 09/23/20 0753 No BP, pulse, respiration, SpO2, or temperature recorded. Height: Weight: 92 kg (202 lb 14.4 oz) (08/08/20) BMI: IBW: Airway Assessment: Mallampati: I TM distance: >3 FB Neck ROM: full Cardiovascular Assessment: Rhythm: regular Rate: normal Pulmonary Assessment: breath sounds clear to auscultation Dental Assessment: Misc Assessment: Last Filed Perioperative Cognitive Screening None Anesthesia Plan: ASA 2 general, with a(n) intravenous induction Patient is a 29-year-old female with chronic pelvic pain scheduled for diagnostic laparoscopy underanesthesia. She is n.p.o. since yesterday denies any recent URI. Consent was obtained and risks were explained. Region - Other Informed Consent: Anesthetic plan and risks discussed with patient. Plan discussed with CLEATER and attending. Anesthesia Screening documented in this encounter Plan of Treatment Upcoming Encounters Date Type Department Care Team (Late st Contact Info) Description 01/22/2024 3:30 PM EDT Office [place] [address] Parris Huntley MD [facility] [place] [address] documented as of this encounter Visit Diagnoses Not on filedocumented in this encounter Administered Medications Inactive Administered Medications - up to 3 most recent administrations Medication Order MAR Action Action Date Dose Rate Site dexamethasone (Decadron) injection Intravenous, PRN, Starting on Sat09/23/20 at 0840, Until Sat09/23/20 at 0958, Anesthesia Intra-op, Routine Given 09/23/2020 8:40 AM EDT 8 mg dexmedetomidine (Precedex) (4 mcg/mL) bolus injection (Anesthsia) Intravenous, PRN, Starting on Sat09/23/20 at 0830, Until Sat09/23/20 at 0958, Anesthesia Intra-op, Routine Given 09/23/2020 8:30 AM EDT 4 mcg ePHEDrine sulfate (5 mg/mL) multi-dose injection Intravenous, PRN, Starting on Sat09/23/20 at 0848, Until Sat09/23/20 at 0958, Anesthesia Intra-op, Routine Given 09/23/2020 9:40 AM EDT 5 mg Given 09/23/2020 8:48 AM EDT 10 mg fentaNYL (pf) (50 mcg/mL) multi-dose injection Intravenous, PRN, Starting on Sat09/23/20 at 0833, Until Sat09/23/20 at 0958, Anesthesia Intra-op, Routine Given 09/23/2020 9:32 AM EDT 25 mcg Given 09/23/2020 8:39 AM EDT 25 mcg Given 09/23/2020 8:33 AM EDT 50 mcg ketorolac (Toradol) (30 mg/mL) injection Intravenous, PRN, Starting on Sat09/23/20 at 0932, Until Sat09/23/20 at 0958, Anesthesia Intra-op, Routine Given 09/23/2020 9:32 AM EDT 30 mg lactated ringers infusion 1,000 mL, at 100 mL/hr, Intravenous, CONTINUOUS, Starting on Sat09/23/20 at 0800, Until Sat09/23/20 at 1346, Day of Surgery (Day of Procedure) New Bag 09/23/2020 9:24 AM EDT New Bag 09/23/2020 8:28 AM EDT New Bag 09/23/2020 8:00 AM EDT 1,000 mLs 100 mL/hr lidocaine (pf) (Xylocaine) (20 mg/mL) 2% injection syringe Intravenous, PRN, Starting on Sat09/23/20 at 0833, Until Sat09/23/20 at 0958, Anesthesia Intra-op, Routine Given 09/23/2020 8:33 AM EDT 50 mg lidocaine (XYLOCAINE) 4 % external solution Intratracheal, PRN, Starting on Sat09/23/20 at 0837, Until Sat09/23/20 at 0958, Anesthesia Intra-op Given 09/23/2020 8:37 AM EDT 4 mLs midazolam (pf) (Versed) (1 mg/mL) multi-dose injection Intravenous, PRN, Starting on Sat09/23/20 at 0828, Until Sat09/23/20 at 0958, Anesthesia Intra-op, Routine Given 09/23/2020 8:28 AM EDT 2 mg ondansetron (pf) (Zofran) (2 mg/mL) injection Intravenous, PRN, Starting on Sat09/23/20 at 0840, Until Sat09/23/20 at 0958, Anesthesia Intra-op, Routine Given 09/23/2020 9:40 AM EDT 4 mg Given 09/23/2020 8:40 AM EDT 4 mg propofoL (Diprivan) 10 mg/mL bolus injection (Anesthesia) Intravenous, PRN, Starting on Sat09/23/20 at 0834, Until Sat09/23/20 at 0958, Anesthesia Intra-op Given 09/23/2020 9:33 AM EDT 30 mg Given 09/23/2020 8:35 AM EDT 80 mg Given 09/23/2020 8:34 AM EDT 100 mg propofoL (Diprivan) infusion Intravenous, CONTINUOUS PRN, Starting on Sat09/23/20 at 0835, Until Sat09/23/20 at 0958, Anesthesia Intra-op, Routine Rate/Dose Change 09/23/2020 9:34 AM EDT 50 mcg/kg/min 27.21 mL/hr Rate/Dose Change 09/23/2020 9:25 AM EDT 100 mcg/kg/min 54. 42 mL/hr Rate/Dose Change 09/23/2020 8:41 AM EDT 50 mcg/kg/min 27.2 1 mL/hr rocuronium (Zemuron) (10 mg/mL) multi-dose injection Intravenous, PRN, Starting on Sat09/23/20 at 0834, Until Sat09/23/20 at 0958, Anesthesia Intra-op, Routine Given 09/23/2020 8:34 AM EDT 40 mg documented in this encounter Care Teams Restaurant General Manager Relationship Specialty Start Date End Date Siena Jimenez PA [address] [place] [address] [place] [address] PCP - General Internal Medicine 08/03/20 01/15/23 documented as of this encounter
--- OUTSIDE RECORDS SUMMARY | 2024-01-15 16:51 | XMS_ITS | Encounter Summary ---
Author Organization [facility] Address [address] [place] [address] Care Team Providers Care Diagnostic Radiologist Name Role Phone Shelby Pastor MD Primary Care Provider +1- [phone] Reason for Visit * Reason Onset Date Comments Provider Referred 05/22/2016 Encounter Details Date Type Department Care Team (Late st Contact Info) Description 05/22/2016 Telephone [facility] Endocrinology - [address] [address] None, Provider Provider Referred Social History Tobacco Use Types Packs/Day Years [...] encounter Miscellaneous Notes * Telephone Encounter - [facility] - 05/22/2016 1605 EST Rcvd faxed referral from Dianna Pastor MD to contact pt to schedule NPV for High Prolactin Levels Called pt and LMOM to c/b to schedule appt. Referral notes sent to medical records to be scanned into chart. documented in this encounter Plan of Treatment Not on file documented as of this encounter Visit Diagnoses Not on filedocumented in this encounter Care Teams Diagnostic Radiologist Relationship Specialty Start Date End Date Shelby Pastor MD [address] [address] PCP - General 06/28/11 09/28/18 documented as of this encounter
--- OUTSIDE RECORDS SUMMARY | 2024-01-15 16:51 | XMS_ITS | Encounter Summary ---
Author Organization [facility] Address [address] [place] [address] Care Team Providers Care Tassel Making Machine Operator Name Role Phone Shelby Pastor MD Primary Care Provider +1- [phone] Reason for Visit * Reason Comments New Patient Visit Encounter Details Date Type Department Care Team (Latest Contact Info) Description 09/13/2011 13:00 EDT Office Visit [facility] Endocrinology - [address] [address] Rhonda Kulkarni MD [address] [place] [address], [facility] [address] [place] [id number] Amenorrhea, secondary (Primary Dx); Hyperprolactinemia (CMS-HCC) (HCC-CMS) Social History Tobacco Use Types Packs/Day Years [...] Sign Reading Time Taken Comments Blood Pressure 118/68 09/13/2011 1307 EDT Pulse 68 09/13/2011 1307 EDT Temperature - - Respiratory Rate - - Oxygen Saturation - - Inhaled Oxygen Concentration - - Weight 83.5 kg (184 lb) 09/13/2011 1307 EDT Height 170.2 cm (5' 7) 09/13/2011 1307 EDT Body Mass Index 28.82 09/13/2011 1307 EDT documented in this encounter Functional Status [...] (DOSTINEX) 0.5 mg tabletIndications:Amenorrh ea, secondary,Hyperprolactinem ia ([facility]-CMS) Take 0.5 Tabs by mouth twice a week. 8 Each 09/13/2011 10/14/2018 documented in this encounter Progress Notes * Rhonda Kulkarni - 09/13/2011 1318 EDT Subjective: Patient ID: Rachana Stearns is an 20 y.o. female. Chief Complaint Patient presents with ??? New Patient Visit HPI Patient Active Problem List Diagnoses ??? Fracture of second lumbar vertebra ??? Amenorrhea, secondary ??? Hyperprolactinemia Rachana is an incredibly nice 20-year-old female here with secondary amenorrhea and hyperprolactinemia. She says that she first got her menstrual period when she was around 10 years old and that theywould be irregular but she would have regular periods periodically every 30 to 45 days or longer inbetween. Also from age 13 on, she began having non- associated galactorrhea. She said she has had an abnormally elevated prolactins on multiple different occasions. She has always been told that the elevated prolactin and galactorrhea are not related to lack of menstrual periods and she has been on oral contraceptives on and off for years. In April of last year, she stopped an oral contraceptive and has not had a menstrual period since then. Currently, she is actually wearing an [employer] brace because she fractured one of her vertebra during a cardboard sled race. She works up at [employer]. She is just about to get her brace off. Right now, she needs to know what to do about the fact that she is not having a menstrual period and has had elevated prolactins and galactorrhea. She does currently have galactorrhea, but not a whole lot. She manages it without a lot of problems. Right now for contraception, she is just using condoms. She denies headaches, visual symptoms, difficulty speaking, swallowing or breathing, nausea, vomiting, diarrhea, constipation or shortness of breath. Her main issues are just what to do about thefact that she is not having a period. She says she did have a pituitary MRI around April of 2010, in [facility], but I do not have a copy of that report. She is told that it was normal. Past Medical History Diagnosis Date ??? Thumb fracture right No past surgical history on file. No family history on file. Social History Social History ??? Marital Status: Single Spouse Name: N/A Number of Children: N/A ??? Years of Education: N/A Occupational History ??? Not on file. Social History Main Topics ??? Smoking status: Never Smoker ??? Smokeless tobacco: Not on file ??? Alcohol Use: 2.5 oz/week 5 drink(s) per week ??? Drug Use: Not on file ??? Sexually Active: Not on file Other Topics Concern ??? Not on file Social History Narrative ??? No narrative on file Current Outpatient Prescriptions on File Prior to Visit Medication Sig Dispense Refill ??? citalopram (CELEXA) 10 mg tablet Take 10 mg by mouth daily. ??? methocarbamol (ROBAXIN) 500 mg tablet Take 1-2 Tabs by mouth every 8 hours as needed (muscle spasms). 80 Tab 0 ??? oxycodone (ROXICODONE) 5 mg immediate release tablet Take 1 Tab by mouth every 4 hours as needed for Pain (discomfort). 60 Tab 0 ??? acetaminophen (TYLENOL) 500 mg tablet Take 2 Tabs by mouth every 6 hours. No Known Allergies Review of Systems Constitutional: Negative for weight loss and malaise/fatigue. HENT: Negative. Eyes: Negative. Respiratory: Galactorrhea Cardiovascular: Negative. Gastrointestinal: Negative. Genitourinary: Abnormal menstrual periods; first period age 10, never regular; LMP 05/2010, last OCP 05/2010 stoppeddue to lack of insurance Musculoskeletal: Fractured L2: 06/27/2011 Skin: keratitis Neurological: Negative. Endo/Heme/Allergies: Negative. Psychiatric/Behavioral: Positive for depression. The patient is nervous/anxious. - See HPI Objective: BP 118/68 Pulse 68 Ht 170.2 cm (67) Wt 83.462 kg (184 lb) BMI 28.82 kg/m2 LMP 06/12/2010 Physical Exam Constitutional: She appears well-developed and well-nourished. HENT: Head: Atraumatic. Eyes: EOM are normal. Neck: Neck supple. No thyromegaly present. Cardiovascular: Normal rate and regular rhythm. No murmur heard. Pulmonary/Chest: Effort normal and breath sounds normal. No respiratory distress. Wearing an [employer] brace over torso due to L2 fracture Abdominal: Soft. Musculoskeletal: She exhibits no edema and no tenderness. Neurological: She is alert. She has normal reflexes. Skin: Skin is warm and dry. Psychiatric: She has a normal mood and affect. Her behavior is normal. Judgment and thought contentnormal. Assessment: ASSESSMENT: Rachana is a delightful 20-year-old with a history of secondary amenorrhea, hyperprolactinemia and apparently a normal pituitary MRI. She and I discussed the fact that an elevated prolactin can in fact decrease estrogen and directly lead to amenorrhea and that we can likely fix this by putting her on a dopamine agonist such as bromocriptine or Dostinex. At this point, I favor Dostinex, which is cabergoline 0.25 mg twice a week until we see her prolactin levels fall. I expect she will have resumption of her menstrual period in the next six months. At this point, I want her to get labs today and get a prolactin every 8 weeks until I see her againin 6 months. If this works, we will probably try the Dostinex for two years and then try a drug holiday. I have emphasized to her that she will likely become fertile again, although she has probably not been fertile up to this point and that she needs to be using backup contraception and she understands this. I have also told her that in the future it is fine for her to get on either cabergoline or bromocriptine and that she will need to be in touch with an farm operations technical director before she tries to conceive. Plan: Rachana was seen today for new patient visit. Diagnoses and associated orders for this visit: Amenorrhea, secondary - Prolactin; Future - Insulin Like Growth Factor I (IGF-1); Future - TSH; Future - T4, Free; Future - LH; Future - FSH; Future - Estradiol, Adults; Future - Prolactin; Standing - cabergoline (DOSTINEX) 0.5 mg tablet; Take 0.5 Tabs by mouth twice a week. Hyperprolactinemia - Prolactin; Future - Insulin Like Growth Factor I (IGF-1); Future - TSH; Future - T4, Free; Future - LH; Future - FSH; Future - Estradiol, Adults; Future - Prolactin; Standing - cabergoline (DOSTINEX) 0.5 mg tablet; Take 0.5 Tabs by mouth twice a week. documented in this encounter Plan of Treatment Not on file documented as of this encounter Results * ESTRADIOL, ADULTS (09/13/2011 13:50 EDT) Estradiol 78 pg/ml [facility] Comment: By day in cycle relative to LH peak: Follicular Phase (-12 to -4 days): ??20-144 Midcycle (-3 to +2 days): ? 64-357 Luteal Phase (+4 to +12 days): ??56-214 Postmenopausal: ??0 - 32 Blood specimen (specimen) 09/13/2011 13:50 EDT 09/13/2011 18:53 EDT Rhonda Kulkarni MD CHEMISTRY & BLOOD GA S ORDERABLES Performing Organization Address [facility] Co de Phone Number [facility] [address] [place] [address] * FSH (09/13/2011 13:50 EDT) FSH 6.9 mIU/ml [facility] Comment: Follicular: 2-11 Mid-Cycle Peak: 3.4-35 Luteal: 1-9 Postmenopausal: 25-120 Blood specimen (specimen) 09/13/2011 13:50 EDT 09/13/2011 18:53 EDT Rhonda Kulkarni MD CHEMISTRY & BLOOD GA S ORDERABLES Performing Organization Address City/State/[facility] Co de Phone Number [facility] [address] [place] [address] * LH (09/13/2011 13:50 EDT) LH 8.6 mIU/ml [facility] Comment: Follicular: 1-18 Mid-Cycle Peak: 15-80 Luteal: 0.5-18 Postmenopausal: 12-55 Blood specimen (specimen) 09/13/2011 13:50 EDT 09/13/2011 18:53 EDT Rhonda Kulkarni MD CHEMISTRY & BLOOD GA S ORDERABLES Performing Organization Address [facility] Co de Phone Number [facility] [address] [place] [address] * T4 FREE (09/13/2011 13:50 EDT) Free T4 0.9 0.8 - 1.8 ng/dL [facility] Blood specimen (specimen) 09/13/2011 13:50 EDT 09/13/2011 18:53 EDT Rhonda Kulkarni MD CHEMISTRY & BLOOD GA S ORDERABLES Performing Organization Address City/[facility] Co de Phone Number [facility] [address] [place] [address] * TSH (09/13/2011 13:50 EDT) Pathologist [facility] TSH 0.86 0.35 - 5.00 uIU/ml [facility] Blood specimen (specimen) 09/13/2011 13:50 EDT 09/13/2011 18:53 EDT Rhonda Kulkarni MD CHEMISTRY & BLOOD GA S ORDERABLES Performing Organization Address City/[facility] Co de Phone Number [facility] [address] [place] [address] * INSULIN LIKE GROWTH FACTOR I (IGF-1) (09/13/2011 13:50 EDT) Pathologist [facility] Insulin-Like Growth Factor 1, S 236 116 - 341 ng/mL [facility] Comment: Performed by: Maestrano Gatzke, [address], [place] [address], Inspector Type: Meka Aguilera, Ph.D. Blood specimen (specimen) 09/13/2011 13:50 EDT 09/13/2011 18:53 EDT Rhonda Kulkarni MD CHEMISTRY & BLOOD GA S ORDERABLES Performing Organization Address City/[facility] Co de Phone Number [facility] [address] [place] [address] * PROLACTIN (09/13/2011 13:50 EDT) Prolactin 53.8 ng/ml [facility] Comment: Non-: 2.8-29.2 : 9.7-208.5 Post Menopausal: 1.8-20.3 Blood specimen (specimen) 09/13/2011 13:50 EDT 09/13/2011 18:53 EDT Rhonda Kulkarni MD CHEMISTRY & BLOOD GA S ORDERABLES Performing Organization Address [facility] Co de Phone Number [facility] [address] [place] [address] documented in this encounter Visit Diagnoses Diagnosis Amenorrhea, secondary- Primary Absence of menstruation Hyperprolactinemia (HCC-CMS) Other and unspecified anterior pituitary hyperfunction documented in this encounter Care Teams Tassel Making Machine Operator Relationship Specialty Start Date End Date Shelby Pastor MD [address] [address] PCP - General 06/28/11 09/28/18 documented as of this encounter
--- OUTSIDE RECORDS SUMMARY | 2024-01-15 16:51 | XMS_ITS | Encounter Summary ---
Author Organization Formerly [facility] Address [facility] [place] [address] Care Team Providers Care Eap Specialist Name Role Phone Siena Jimenez Primary Care Provider + Reason for Visit * Consultation (Routine) - Closed Specialty Diagnoses / Procedures Referred By Raza gerard Referred To Contact Endocrinology Diagnoses Hyperprolactinemia Siena Jimenez PA [address] [place] [address] [place] [address] [facility] [place] [facility] [address] [place] [phone] Referral ID Status Reason Start Date Expiration Date Visits Re quested Visits Authorized [id number] Closed 05/18/2021 05/18/2022 1 1 Encounter Details Date Type Department Care Team (Late st Contact Info) Description 08/16/2021 9:30 AM EDT Office [place] [address] Shaggy Martins, [facility] [address] Prolactinoma Social History Tobacco Use Types Packs/Day Years [...] Sign Reading Time Taken Comments Blood Pressure 113/60 08/16/2021 9:32 AM EDT Pulse 61 08/16/2021 9:32 AM EDT Temperature 36.6 ??C (97.9 ??F) 08/16/2021 9:32 AM ED T Respiratory Rate 20 08/16/2021 9:32 AM EDT Oxygen Saturation 100% 08/16/2021 9:32 AM EDT Inhaled Oxygen Concentration - - Weight 82.3 kg (181 lb 6.4 oz) 08/16/2021 9:32 A M EDT Height 170.2 cm (5' 7) 08/16/2021 9:32 AM EDT Body Mass Index 28.41 08/16/2021 9:32 AM EDT documented in this encounter Progress Notes * Shaggy Martins, DO - 08/16/2021 9:30 AM EDT Images from the original note were not included. Ms. Rachana Stearns is an 30 y.o. female who presents in consultation for chief complaint of prolactinoma. Referred by: Siena MUHAMMAD HPI: Patient is a 30-year-old female previously seen in the clinic in 2017. At that time she presented with complaint of amenorrhea and galactorrhea. Since then she has been treated with cabergoline for the last few years and is followed with endocrinology at [facility]. She is currently taking cabergoline 0.25 mg [...] does not have breast pain with menstrual cycles as she did previously. She is now having [...] cabergoline and Celexa on a regular basis. Review of Systems Constitutional: Positive for fatigue. Negative for appetite change and unexpected weight change. Eyes: Negative for visual disturbance. Cardiovascular: Positive for palpitations. Gastrointestinal: Positive for nausea. Endocrine: Negative for cold intolerance and heat intolerance. Genitourinary: Negative for menstrual problem. Neurological: Negative for headaches. Past Surgical History: Procedure Laterality Date ??? PRO LAP, DIAGNOSTIC ABDOMEN Midline 09/23/2020 LAPAROSCOPY, DIAGNOSTIC, ABDOMEN (WRVU 5.14) performed by Shakila Mueller MD at [facility] ??? PRO REOPEN FALLOPIAN TUBE, CHROMOTUBATION N/A 09/23/2020 CHROMOTUBATION, INCLUDING MATERIALS (WRVU 1.06) performed by Shakila Mueller MD at [facility] Social History Socioeconomic History ??? Marital status: Single Spouse name: Not on file ??? Number of children: Not on file ??? Years of education: Not on file ??? Highest education level: Not on file Occupational History ??? Not on file Tobacco Use ??? Smoking status: Former Smoker Packs/day: 0.25 Years: 3.00 Pack years: 0.75 Quit date: 11/02/2014 Years since quittin.7 ??? Smokeless tobacco: Never Used ??? Tobacco comment: 2 to 3 cigarettes daily Vaping Use ??? Vaping Use: Never used Substance and Sexual Activity ??? Alcohol use: Not on file ??? Drug use: Not on file ??? Sexual activity: Not on file Other Topics Concern ??? Not on file Social History Narrative ??? Not on file Social Determinants of Health Financial Resource Strain: Not on file Food Insecurity: Not on file Transportation Needs: Not on file Physical Activity: Not on file Housing Stability: Not on file Current Outpatient Medications: ??? multivitamin (THERAGRAN) Tablet, Take 1 tablet by mouth daily., Disp: , Rfl: ??? oxyCODONE (Roxicodone) 5 mg Tablet, Take 1 tablet by mouth every 4 hours as needed for Pain., Disp: 5 tablet, Rfl: 0 ??? acetaminophen (Tylenol) 325 mg Tablet, Take 2 tablets by mouth every 6 hours as needed for Pain., Disp: 30 tablet, Rfl: 1 ??? citalopram (CeleXA) 20 mg Tablet, 20 mg., Disp: , Rfl: ??? ibuprofen (Advil;Motrin) 200 mg Tablet, Take 600 mg by mouth every 6 hours as needed for Pain. OTC, Disp: , Rfl: ??? traMADoL (Ultram) 50 mg Tablet, Take 50 mg by mouth as needed., Disp: , Rfl: ??? hydrOXYzine (Atarax) 25 mg Tablet, Take 25 mg by mouth as needed., Disp: , Rfl: ??? citalopram (CELEXA) 10 mg Tablet, Take 30 mg by mouth daily., Disp: , Rfl: ??? cabergoline (DOSTINEX) 0.5 mg Tablet, Take 0.5 tablets by mouth twice a week., Disp: 10 tablet,Rfl: 11 Allergies Allergen Reactions ??? Avocado Itching ??? Honey ??? Kiwi (Actinidia Chinensis) Physical Exam: Patient Vitals for the past 24 hrs: Temp Pulse Resp BP SpO2 08/16/21 0932 36.6 ??C (97.9 ??F) 61 20 113/60 100 % General: no acute distress, pleasant, sitting comfortably Eyes: no lid lag; normal eye movements Respiratory: symmetrical chest expansion, breathing comfortably on room air without audible wheeze or stridor Musculoskeletal: moving all 4 extremities normally Skin: [...] 270 ng/mL 122 [3] Assessment / Plan: 30-year-old female presents for follow-up of a micro prolactinoma. This presented with galactorrheaand amenorrhea. She has been treated with cabergoline 0.25 mg twice weekly for last several years. Amenorrhea has resolved and she is currently having normal menstrual cycles. She does continue to have some galactorrhea. Prolactin is most recently still above the normal limit at 49. Her prolactinoma is quite small at 2.5 mm. We discussed with her that it is reasonable to raise the dose of cabergoline which could potentially alleviate any remaining galactorrhea at which time we could then reduceback down to the lower dose of cabergoline. She does not want to do this at this time but will consider and let us know. We will also be mindful that we would not want to increase her cabergoline above 5 mg twice weekly if it can be avoided as she does have a history of bicuspid aortic valve and wewould not want to put her at risk of any valvular disease with higher doses of cabergoline. Would not repeat MRI unless prolactin is rising. 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 We will ask neurosurgeryfor their opinion on what, if any, repeat imaging is required to monitor this. Review of past labs does show a slightly low free T4 as well is an a.m. cortisol of 9. We will repeat the free T4. Do not think she has any compelling symptoms of adrenal insufficiency though advisedher that should she develop any of the symptoms such as fatigue, weight loss, nausea we could certainly repeat testing of the adrenal axis as well. -check labs today and follow up in 1 year A note will be sent to the referring provider Return to clinic in 12 months Discussed with attending physician, Dr. Perla. It was a pleasure to be involved in the care of Rachana Stearns. If you have any questions about the management and treatment plan as outlined above, or if I can be of further assistance, please donot hesitate to contact me. Sincerely, Shaggy Martins DO Endocrinology Fellow * Zia Perla MD - 08/16/2021 9:30 AM EDT I saw this patient with Dr Martins . I reviewed the queen portions of the history and physical exam, and reviewed pertinent lab data. I had seen this patient previously. I answered all patient questions. I was involved in all medical decision making and agree with this plan. documented in this encounter Plan of Treatment Upcoming Encounters Date Type Department Care Team (Late st Contact Info) Description 01/22/2024 3:30 PM EDT Office [place] [address] Parris Huntley MD [facility] [place] [address] documented as of this encounter Visit Diagnoses Diagnosis Prolactinoma Benign neoplasm of pituitary gland and craniopharyngeal duct (pouch) documented in this encounter Care Teams Eap Specialist Relationship Specialty Start Date End Date Siena Jimenez PA [address] [place] [address] [place] [address] PCP - General Internal Medicine 08/03/20 01/15/23 documented as of this encounter
--- OUTSIDE RECORDS SUMMARY | 2024-01-15 16:51 | XMS_ITS | Encounter Summary ---
Author Organization [facility] Address [address] [place] [address] Care Team Providers Care Director Of Analytics Name Role Phone Shelby Pastor MD Primary Care Provider [phone]- [phone] Encounter Details Date Type Department Care Team (Late st Contact Info) Description 07/24/2011 12:08 EDT - 07/24/2011 23:59 EDT Hospital Encounter [address] [address] Kyara Lund PA-C [address] [facility], [address] [place] [phone] Discharge Disposition: Auto Discharge Social History Tobacco Use Types Packs/Day Years [...] Discharge Disposition Disposition Code Departure Means Destination Auto Discharge Home documented in this encounter Plan of Treatment Not on file documented as of this encounter Visit Diagnoses Not on filedocumented in this encounter Care Teams Director Of Analytics Relationship Specialty Start Date End Date Shelby Pastor MD [address] [address] PCP - General 06/28/11 09/28/18 documented as of this encounter
--- OUTSIDE RECORDS SUMMARY | 2024-01-15 16:51 | XMS_ITS | Encounter Summary ---
Author Organization [facility] [place] [address] Care Team Providers Care Trademark Affixer Name Role Phone Shorty Beaulieu Primary Care Provider [phone] Reason for Visit * Reason Onset Date Comments Depression 02/19/2023 Encounter Details Date Type Department Care Team (Late st Contact Info) Description 02/19/2023 Nurse [place]riage [place] [address] [facility] [facility] [place] [address] Depression Social History Tobacco Use Types Packs/Day Years Used Date Smoking Tobacco: Former Cigarettes 0.3 3 0 11/03/2011 - 11/02/2014 Smokeless Tobacco: Never Comments:2 to 3 cigarettes d aily Sex and Gender Information Value Date Recorded Sex Assigned at Not on file Gender Identity Not on file Sexual Orientation Not on file documented as of this encounter Miscellaneous Notes * Telephone Encounter - Sherry Moore RN - 02/19/2023 6:00 PM EST Called and spoke with patient She confirmed she connected with the crisis team She states that she is feeling better than this morning, has found that talking about how she is feeling has been helpful Patient states that she thinks counseling is needed and she is amenable to that recommendation, hasbeen resistant to counseling in the past, now amenable to this plan Confirmed that she will reduce cabergoline 0.25 mg one tab twice weekly She awaits hearing back regarding counseling referral Advised to call clinic if she has any further questions or concerns * Telephone Encounter - Sherry Mooer RN - 02/19/2023 10:41 AM EST Called and spoke with patient after discussion with Justin Schwarz RN Patient was at work at the time. Discussed with patient that it is our policy that we connect her with the Psych crisis line, . Patient stated she is at work, she is able to have a phone call at her lunch break, she will call at noon. Counseled patient that if thoughts of harming herself return, to go to the nearest ER or call 911. Patient wondering if counseling is a good idea, counseled that it can be helpful, and to discuss this resource with the crisis line. Patient stated understanding * Telephone Encounter - Sherry Moore RN - 02/19/2023 9:30 AM EST Reason for Call: No chief complaint on file. Brief Health History (Onset, Location, Duration, Characteristics, Aggravating Factors, Relieving Factors/Radiation,Timing, and Severity): Called and spoke with patient She states, I usually get seasonal depression, but I can't maintain it now States she has a difficult job, can usually handle it Emotions are all over the place Noticed that her mood changed a few weeks ago, around the same time that the cabergoline dose was increased from 0.25 mg to 0.5 mg twice weekly Notes history of self harm thoughts as a teenager, haven't had those thoughts in many years Patient let her boss know, her boss also noticed that the patient was more emotional a few weeks ago. She states that I would use a single-blade razor but I don't have those in my house As a stress-reliever, picks at skin, in the past few weeks she has been picking at her skin non-stop Denies attempts of self-harm Every few days, has thoughts of self-harm, comes to her mind when she is not working Feeling more depressed lately, more withdrawn, has to talk herself in to being social, notes that it takes more energy to mentally and emotionally function Worsening Symptoms: Emphasized symptoms that require emergent/urgent care according to EPIC protocol utilized or other documented decision support tool. Patient able to teach back worsening symptoms and action to take. Patient/Caregiver demonstrates understanding via teach back: Yes Disposition: Data Unavailable Reason for Disposition Depression symptoms (sadness, hopelessness, decreased energy) interfere with work or school Sometimes has thoughts of suicide Protocols used: Suicide Lcipnawm-V-WH Per protocol, patient requiring same-day visit. Counseled patient to reach out to support network including her father and to call 988 crisis line if any thoughts of harming self Per Dr. Rodriguez, reduce cabergoline back down to 0.25 mg twice weekly, request sent to provider to send Rx, provider notified of patient's mental state. This RN plans to reach out to connect patient to same-day resources Nurse managers notified for assistance. * Telephone Encounter - Sherry Moore RN - 02/19/2023 9:28 AM EST Copied from [facility] #[id number]. Topic: Specialty Dept CRMs - Triage >> Feb 19, 2023 8:45 AM Sly Hernandez wrote: Triage Message Specialist: Jenniefr Relationship (if other than patient-full name): self Symptom: Depression, thoughts of self harm - patient believes its due to the dosage change with hercabergoline (Dostinex) 0.5 mg tablet [[id number]]. Has patient experienced symptom before no If patient has experienced symptom before, when was the last time this occurred no Is patient currently having symptom yes When did symptom begin end of December beginning of January Additional Comments: Patient is having thoughts of self harm, depression, very emotional - not sureif its seasonal depression or due to dosage change. documented in this encounter Plan of Treatment Upcoming Encounters Date Type Department Care Team (Late st Contact Info) Description 01/22/2024 3:30 PM EDT Office [place] [address] Parris Huntley MD [facility] [place] [address] documented as of this encounter Visit Diagnoses Not on filedocumented in this encounter Care Teams Trademark Affixer Relationship Specialty Start Date End Date Shorty Beaulieu PA [address] [facility] [address] [place] [address] PCP - General Internal Medicine 01/16/23 documented as of this encounter
--- OUTSIDE RECORDS SUMMARY | 2024-01-15 16:51 | XMS_ITS | Encounter Summary ---
Author Organization [facility] Address [address] [place] [address] Care Team Providers Care Cement Gun Operator Name Role Phone Shelby Pastor MD Primary Care Provider [phone]- [phone] Reason for Referral * Consult, Test and Treat (Routine/Next Available) - Closed Specialty Diagnoses / Procedures Referred By Contac t Referred To Contact Diagnoses Fracture of second lumbar vertebra ([facility]) Kyara Lund PA-C [address] [place] [phone] Referral ID Status Reason Start Date Expiration Date V isits Requested Visits Authorized [id number] Closed Specialty Services Required 08/21/2011 1 1 Question Answer Reason for Request: L2 burst fracture Reason for Visit * Reason Onset Date Comments Physical Therapy 08/15/2011 Encounter Details Date Type Department Care Team (Late st Contact Info) Description 08/15/2011 Telephone [facility] - [facility] [address] [place] [address] Kyara Lund PA-C [address] [place] [phone] Physical Therapy Social History Tobacco Use Types Packs/Day Years [...] encounter Miscellaneous Notes * Telephone Encounter - Mahi Landin RN - 09/04/2011 0925 EDT Physical therapist phoned to discuss activities and restrictions as the patient has an appointment today at 2 PM. * Telephone Encounter - Mikala Schaefer - 08/15/2011 1643 EDT Patient is requesting a physical therapy referral. She would like to do [facility]. This should be faxed to [facility] sonali Beltran documented in this encounter Plan of Treatment Scheduled Referrals Name Type Priority Associated Diagnoses Orde r Schedule AMB CONSULT PHYSICAL THERAPY Outpatient Referral Routine Fracture of second lumbar vertebra (CMS-HCC) ([facility]) Ordered: 08/21/2011 documented as of this encounter Visit Diagnoses Diagnosis Fracture of second lumbar vertebra (HCC-CMS)- Primary Closed fracture of lumbar vertebra without mention of spinal cord injury documented in this encounter Care Teams Cement Gun Operator Relationship Specialty Start Date End Date Shelby Pastor MD [address] [address] PCP - General 06/28/11 09/28/18 documented as of this encounter
--- OUTSIDE RECORDS SUMMARY | 2024-01-15 16:51 | XMS_ITS | Encounter Summary ---
Author Organization [facility] Address [address] [place] [address] Care Team Providers Care Research And Evaluation Analyst Name Role Phone Shelby Pastor MD Primary Care Provider [phone]- [phone] Reason for Visit * Reason Onset Date Comments Physical Therapy 09/05/2011 Encounter Details Date Type Department Care Team (Late st Contact Info) Description 09/05/2011 Telephone [facility] [address] [place] [address] Kyara Lund PA-C [address] [facility], [address] [place] [address] Physical Therapy Social History Tobacco Use [...] Miscellaneous Notes * Telephone Encounter - Lucretia Conley - 09/05/2011 1125 EDT Katina from [facility] left a voicemail this morning wanting to know if Rachana can hold off on pool therapy until she is out of her brace as it is a chore to change the pads on the brace. She also wants to know if she can do any weight lifting with her legs. documented in this encounter Plan of Treatment Not on file documented as of this encounter Visit Diagnoses Not on filedocumented in this encounter Care Teams Research And Evaluation Analyst Relationship Specialty Start Date End Date Shelby Pastor MD [address] [address] PCP - General 06/28/11 09/28/18 documented as of this encounter
--- OUTSIDE RECORDS SUMMARY | 2024-01-15 16:51 | XMS_ITS | Encounter Summary ---
Author Organization [facility] Address [address] [place] [address] Care Team Providers Care Help Desk Associate Name Role Phone Shelby Pastor MD Primary Care Provider [phone]- [phone] Encounter Details Date Type Department Care Team (Late st Contact Info) Description 10/24/2011 9:57 EDT - 10/24/2011 23:59 EDT Hospital Encounter [address] [address] Kyara Lund PA-C [address] [facility], [address] [place] [phone] Discharge Disposition: Home or Self Care Social [...] a week. 8 Each 09/13/2011 10/14/2018 documented as of this encounter Discharge Disposition Disposition Code Departure Means Destination Home or Self Senior Living documented in this encounter Plan of Treatment Not on file documented as of this encounter Visit Diagnoses Not on filedocumented in this encounter Care Teams Help Desk Associate Relationship Specialty Start Date End Date Shelby Pastor MD [address] [address] PCP - General 06/28/11 09/28/18 documented as of this encounter
--- OUTSIDE RECORDS SUMMARY | 2024-01-15 16:51 | XMS_ITS | Encounter Summary ---
Author Organization [facility] [place] [address] Care Team Providers Care Editor Index Name Role Phone Shorty Beaulieu Primary Care Provider [phone] Encounter Details Date Type Department Care Team (Latest Contact Info) Description 01/16/2023 3:35 PM EDT Laboratory Appointment Lab [address] [place] [address] Hyperprolactinemia Social History Tobacco Use Types Packs/Day [...] 3:30 PM EDT Office [place] [address] Parris Huntley MD [facility] [place] [address] documented as of this encounter Procedures Procedure Name Priority Date/Time Associated Diagnosis Comments URINE, QUALITATIVE Routine 01/16/2023 4:03 PM EDT Hyperprolactinemia PROLACTIN Routine 01/16/2023 3:42 PM EDT Hyperprolactinemia TSH Routine 01/16/2023 3:42 PM EDT Hyperprolactinemia T4, FREE Routine 01/16/2023 3:42 PM EDT Hyperprolactinemia documented in this encounter Results * urine, qualitative ([facility]) (01/16/2023 4:03 PM EDT) Specific Warren Urine Automated 1.015 1.006 - 1.030 [facility] Human Chorionic Gonadotropin Qualitative, Urine Negative [facility] Comment: Dilute urine samples can result in a false negative test. Repeat testing on a first morning sample or a plasma quantitative hCG measurement is recommended. Urine 01/16/2023 4:03 PM EDT 01/16/2023 4:17 PM EDT Narrative Resulting Agency Comment Spec In Lab Jay Torres MD URINE ORDERABLES Performing Organization Address [facility]/ZIP Co de Phone Number [facility] [place] [address] * (ABNORMAL) Prolactin (01/16/2023 3:42 PM EDT) Pathologist [facility] Prolactin 57.7(H) 4.8 - 23.3 ng/mL [facility] Blood 01/16/2023 3:42 PM EDT 01/16/2023 3:57 PM EDT Narrative Resulting Agency Comment Spec In Lab Jay Torres MD CHEMISTRY ORDERABLE S Performing Organization Address City/[facility]/ZIP Co de Phone Number [facility] [place] [address] * (ABNORMAL) T4, free (01/16/2023 3:42 PM EDT) Free T4 0.91(L) 0.93 - 1.70 ng/dL [facility] Comment: Reference Interval (ng/dL): Females: ??First Trimester: 0.97-1.68 ??Second Trimester: 0.77-1.51 ??Third Trimester: 0.77-1.49 Blood 01/16/2023 3:42 PM EDT 01/16/2023 3:57 PM EDT Narrative Resulting Agency Comment Spec In Lab Jay Torres MD CHEMISTRY ORDERABLE S Performing Organization Address City/[facility]/ZIP Co de Phone Number [facility] [place] [address] * TSH (01/16/2023 3:42 PM EDT) Thyroid Stimulating Hormone 1.15 0.27 - 4.20 mcIU/mL [facility] Comment: Reference Interval (mcIU/mL): Females: ??First Trimester: 0.23-3.88 ??Second Trimester: 0.22-3.90 ??Third Trimester: 0.44-4.66 Blood 01/16/2023 3:42 PM EDT 01/16/2023 3:57 PM EDT Narrative Resulting Agency Comment Spec In Lab Jay Torres MD CHEMISTRY ORDERABLE S Performing Organization Address [facility] Co de Phone Number [facility] [place] [address] documented in this encounter Visit Diagnoses Diagnosis Hyperprolactinemia Other and unspecified anterior pituitary hyperfunction documented in this encounter Care Teams Editor Index Relationship Specialty Start Date End Date Shorty Beaulieu PA [address] [place] [address] PCP - General Internal Medicine 01/16/23 documented as of this encounter
--- OUTSIDE RECORDS SUMMARY | 2024-01-15 16:51 | XMS_ITS | Encounter Summary ---
Author Organization [facility] Address [address] [place] [address] Care Team Providers Care Test Lead Application Testing Name Role Phone Shelby Pastor MD Primary Care Provider +1- [phone] Reason for Visit * Reason Onset Date Comments Physical Therapy 08/30/2011 Encounter Details Date Type Department Care Team (Late st Contact Info) Description 08/30/2011 Telephone [facility] Neurosurgery - [address] [place] [address] [place] [address] Mahi Landin RN Physical Therapy Social History Tobacco Use Types [...] encounter Miscellaneous Notes * Telephone Encounter - Kyara Lund PA - 09/03/2011 1354 EDT Left message for the patient's Physical therapist * Telephone Encounter - Disogra, Mahi, RN - 08/30/2011 1116 EDT Would like a call back regarding precautions/restrictions. documented in this encounter Plan of Treatment Not on file documented as of this encounter Visit Diagnoses Not on filedocumented in this encounter Care Teams Test Lead Application Testing Relationship Specialty Start Date End Date Shelby Pastor MD [address] [address] PCP - General 06/28/11 09/28/18 documented as of this encounter
--- OUTSIDE RECORDS SUMMARY | 2024-01-15 16:51 | XMS_ITS | Encounter Summary ---
Author Organization [facility] Address [address] [place] [address] Care Team Providers Care Senior Materials Analyst Name Role Phone Shelby Pastor MD Primary Care Provider +1- [phone] Reason for Referral * Radiology Services (Routine/Next Available) - Closed Specialty Diagnoses / Procedures Referred By Contac t Referred To Contact Diagnoses Closed fracture of lumbar vertebra without mention of spinal cord injury Procedures L SPINE 2-3 VIEWS Kyara Lund PA-C [address] [place] [phone] Referral ID Status Reason Start Date Expiration Date Visits Re quested Visits Authorized [id number] Closed 09/24/2011 1 1 Encounter Details Date Type Department Care Team (Late st Contact Info) Description 09/24/2011 Orders Only [facility] Neurosurgery - [address] [address] Kyara Lund PA-C [address] [place] [phone] Fx lumbar vertebra-closed (Primary Dx) Social [...] Diagnosis Comments L SPINE 2-3 VIEWS Routine 09/25/2011 11: 26 EDT Fx lumbar vertebra-closed documented in this encounter Results * L SPINE 2-3 VIEWS (09/25/2011 11:26 EDT) Anatomical Region Laterality Modality Other 09/25/2011 11:2 6 EDT 09/25/2011 15:18 EDT Narrative 09/25/2011 15:18 EDT L SPINE 2-3 VIEWS ??Sep 25, 2011 11:26:00 AM Signs and Symptoms/Comments: ??805.4-FX LUMBAR [id number]-9-CM L2 burst fracture ??out of brace per office AIB Findings: Two views of the lumbar spine again show a fracture of the anterosuperior aspect at L2 as seen previously. The vertebral alignment is normal. Slight loss of height of the right lateral aspect of L2 as seen on the AP projection. No other abnormalities are noted. Procedure Note 09/25/2011 L SPINE 2-3 VIEWS Sep 25, 2011 11:26:00 AM Signs and Symptoms/Comments: 805.4-FX LUMBAR [id number]-9-CM L2 burst fracture out of brace per office AIB Findings: Two views of the lumbar spine again show a fracture of the anterosuperior aspect at L2 as seen previously. The vertebral alignment is normal. Slight loss of height of the right lateral aspect of L2 as seen on the AP projection. No other abnormalities are noted. Kyara Lund PA-C IMG DIAGNOS TIC IMAGING ORDERABLES documented in this encounter Visit Diagnoses Diagnosis Closed fracture of lumbar vertebra without mention of spinal cord injury- Primary documented in this encounter Care Teams Senior Materials Analyst Relationship Specialty Start Date End Date Shelby Pastor MD [address] [address] PCP - General 06/28/11 09/28/18 documented as of this encounter
--- OUTSIDE RECORDS SUMMARY | 2024-01-15 16:51 | XMS_ITS | Encounter Summary ---
[place] [address] Care Team Providers Care Airplane Cleaner Name Role Phone Shorty Beaulieu Primary Care Provider [phone] Reason for Visit * Reason Onset Date Comments Medication Refill 12/21/2022 Encounter Details Date Type Department Care Team (Late st Contact Info) Description 12/21/2022 Telephone [place] [address] [address] [facility] [address] [place] [address] Medication Refill Social History Tobacco Use Types Packs/Day Years Used Date Smoking Tobacco: Former Cigarettes 0.3 3 0 11/03/2011 - 11/02/2014 Smokeless Tobacco: Never Comments:2 to 3 cigarettes d aily Sex and Gender Information Value Date Recorded Sex Assigned at Not on file Gender Identity Not on file Sexual Orientation Not on file documented as of this encounter Miscellaneous Notes * Telephone Encounter - Meka Villarreal - 12/21/2022 10:56 AM EDT - Patient not seen since 08/16/21, scheduled for 01/16/23 MEDICATION: cabergoline (DOSTINEX) 0.5 mg Tablet [[id number]] DOSE: Take 0.5 tablets by mouth twice a week PHARMACY: [facility] - [place], [place] PHONE: [phone] documented in this encounter Plan of Treatment Upcoming Encounters Date Type Department Care Team (Late st Contact Info) Description 01/22/2024 3:30 PM EDT Office [place] [address] Parris Huntley MD [facility] [place] [address] documented as of this encounter Visit Diagnoses Not on filedocumented in this encounter Care Teams Airplane Cleaner Relationship Specialty Start Date End Date Shorty Beaulieu PA [address] [facility] [address] [place] [address] PCP - General Internal Medicine 01/16/23 documented as of this encounter
--- OUTSIDE RECORDS SUMMARY | 2024-01-15 16:51 | XMS_ITS | Encounter Summary ---
Author Organization [facility] Address [address] [place] [address] Care Team Providers Care Director Business Development Name Role Phone Shelby Pastor MD Primary Care Provider +1- [phone] Encounter Details Date Type Department Care Team (Late st Contact Info) Description 04/06/2015 Results Only [facility]- [facility] [phone] Roma Gil MD [address] [place] [phone] Social History Tobacco Use Types Packs/Day Years [...] Name Priority Date/Time Associated Diagnosis Comments PAP TEST- RESULT ONLY Routine 04/06/2015 0:00 EST documented in this encounter Results * PAP TEST- RESULT ONLY (04/06/2015 0:00 EST) Pathology Report: CYTOPATHOLOGY REPORT Reports generated via electronic interface contain original data; however they are lacking the format of the original report. Caution should be taken when reading/interpreti ng unformatted reports. Name: ? KIMI HILL ? Accession #: ? [id number] : ? 1990 (Age: 24) ??F ?Collect Date: ? 04/06/2015 Location: ? [facility] ? Receive Date: ? 04/08/2015 Provider: ?ROMA GIL MD Copy to: ?ROMA GIL MD ? Specimen/Source: ?Pap Test, Cervix/Endocervix, ThinPrep Imaging System with manual evaluation Last Menstrual Period: ? 03/08/15 Hormonal/Contracep tive Status: ? Oral contraceptives ? SPECIMEN ADEQUACY ? Satisfactory for Evaluation - transformation zone component absent GENERAL CATEGORIZATION ? Negative for Intraepithelial Lesion or Malignancy INTERPRETATION ? Shift in navid present suggestive of bacterial vaginosis. ? Document reviewed and electronically signed by: ? Ashley Agee, ADELA(ASCP)(IAC) ? Report Date: ??04/11/2015 15:46 End of Report [facility] 04/06/2015 04/08/2015 Roma Gil MD PATHOLOGY ORDERABLES [facility] [address] [place] [address] documented in this encounter Visit Diagnoses Not on filedocumented in this encounter Care Teams Director Business Development Relationship Specialty Start Date [place] [address] PCP - General 06/28/11 09/28/18 documented as of this encounter
--- OUTSIDE RECORDS SUMMARY | 2024-01-15 16:51 | XMS_ITS | Encounter Summary ---
Author Organization [facility] Address [address] [place] [address] Care Team Providers Care Filament Maker Name Role Phone Shelby Pastor MD Primary Care Provider +1- [phone] Encounter Details Date Type Department Care Team (Late st Contact Info) Description 01/01/2013 Results Only [facility] Laboratory Services - [facility] [place] [address] [place] [phone] Shelby Pastor MD [address] [phone] Social History Tobacco Use Types Packs/Day Years [...] Diagnosis Comments PAP TEST- RESULT ONLY Routine 01/01/2013 0:00 EDT documented in this encounter Results * PAP TEST- RESULT ONLY (01/01/2013 0:00 EDT) Pathology Report: CYTOPATHOLOGY REPORT Reports generated via electronic interface contain original data; however they are lacking the format of the original report. Caution should be taken when reading/interpreti ng unformatted reports. Name: ? KIMI HILL ? Accession #: ? [id number] ? : ? 1990 (Age: 22) ??F ?Collect Date: ? 01/01/2013 ? Location: ? [facility] ? Receive Date: ? 01/02/2013 ? Provider: SHELBY PASTOR MD Copy to: ? Final Report SPECIMEN ADEQUACY ? Satisfactory for Evaluation - transformation zone component absent GENERAL CATEGORIZATION ? Negative for Intraepithelial Lesion or Malignancy ?? Specimen/Source: ??Pap Test, Cervix, ThinPrep Imaging System with manual evaluation Document reviewed and electronically signed by: ? ADELA Haynes(ASCP) ? Report ??Date: 01/07/2013 10:52 HPV with Pap Test ? Date Ordered: ? 01/07/2013 ? Status: ?? Signed Out ?Date Complete: ? 01/09/2013 ? By: ??System Interface ? Date Reported: ? 01/09/2013 ? Interpretation RESULT: Negative for HPV. No E6 or E7 mRNA is detected from HPV types 16,18,31,33,35, 39,45,51,52,56,58, 59,66, and 68 by kennel worker mediated amplification. Comments Document reviewed and electronically signed by: ? System Interface ? Report date: 01/09/2013 By the signature above, the attending physician certifies that he/she has personally conducted a gross and/or microscopic examination of the described specimens and rendered or confirmed the above diagnosis. End of Report [facility] 01/01/2013 01/02/2013 Shelby Pastor MD PATHOLOGY ORDERABL ES Performing Organization Address City/State/[facility] Co de Phone Number [facility] [address] [place] [address] documented in this encounter Visit Diagnoses Not on filedocumented in this encounter Care Teams Filament Maker Relationship Specialty Start Date End Date Shelby Pastor MD [address] [address] PCP - General 06/28/11 09/28/18 documented as of this encounter
--- OUTSIDE RECORDS SUMMARY | 2024-01-15 16:51 | XMS_ITS | Encounter Summary ---
Author Organization [facility] Address [address] [place] [address] Care Team Providers Care Supply Analyst Name Role Phone Unavailable Primary Care Provider Unavailabl e Encounter Details Date Type Department Care Team (Late st Contact Info) Description 01/09/2007 Results Only [facility] - [place] [address] [place] [address] Leny Jarvis NP Social History Tobacco Use Types Packs/Day Years Used Date Smoking Tobacco: Never Assessed Sex and Gender Information Value Date Recorded Sex Assigned at Not on file Gender Identity Not on file Sexual Orientation Not on file documented as of this encounter Plan of Treatment Not on file documented as of this encounter Procedures Procedure Name Priority Date/Time Associated Diagnosis Comments HPV DETECTION, HIGH RISK TYPES Routine 01/09/2007 21:58 EDT CYTOPATHOLOGY Routine 01/09/2007 0:00 EDT documented in this encounter Results * HUMAN PAPILLOMA VIRUS DNA TEST (01/09/2007 21:58 EDT) Specimen Description Cervix, ThinPrep vial [facility] Result Negative for HPV types 16, 18, 31, 33, 35, 39, 45, 51, 52, 56, 58, 59, and 68. [facility] Report Status Final [id number] [facility] 01/09/2007 21:5 8 EDT 01/18/2007 21:58 EDT Leny Jarvis CARDIAC EXERCISE SPECIALIST MICROBIOLOGY - GENER AL ORDERABLES [facility] [address] [place] [address] * CYTOPATHOLOGY (01/09/2007 0:00 EDT) Pathology Report: CYTOPATHOLOGY REPORT Reports generated via electronic interface contain original data; however they are lacking the format of the original report. Caution should be taken when reading/interpreti ng unformatted reports. Name: ? SERGIO KIMI ? Accession #: ? [id number] : ? 1990 (Age: 16) ??F ?Collect Date: ? 01/09/2007 Location: ? [facility] ? Receive Date: ? 01/13/2007 Provider: ?LENY JARVIS SLAB LIFTING ENGINEER Copy to: ? Specimen/Source: ?ThinPrep Pap Test, Source Not Provided, processed on [facility] ThinPrep Imaging System, with manual evaluation Last Menstrual Period: ? 01/05/07 Menstrual/Pregnanc y Status: ? Metrorrhagia Hormonal/Contracep tive Status: ? Yes: Kristen Other: ? HPVDX - HPV testing requested regardless of diagnosis on current ThinPrep Pap test. ? SPECIMEN ADEQUACY ? Satisfactory for Evaluation - transformation zone component present GENERAL CATEGORIZATION ? Negative for Intraepithelial Lesion or Malignancy ? Document reviewed and electronically signed by: ? ADELA Bay(ASCP) ? Report Date: ??01/17/2007 10:26 End of Report [facility] 01/09/2007 01/13/2007 Leny Jarvis NP PATHOLOGY ORDERABLES Performing Organization Address City/State/[facility] Co de Phone Number [facility] [address] [place] [address] documented in this encounter Visit Diagnoses Not on filedocumented in this encounter
--- OUTSIDE RECORDS SUMMARY | 2024-01-15 16:51 | XMS_ITS | Encounter Summary ---
Author Organization [facility] Address [address] [place] [address] Care Team Providers Care Workcell Operator Name Role Phone Shelby Pastor MD Primary Care Provider +1- [phone] Reason for Visit * Reason Onset Date Comments Hospital Discharge Follow Up 07/04/2011 Encounter Details Date Type Department Care Team (Late st Contact Info) Description 07/04/2011 Telephone [facility] Neurosurgery - [facility] [address] [place], [place] [phone] Kyara Lund PA-C [address] [facility], [address] [place] [address] Hospital Discharge Follow Up Social History Tobacco Use Types Packs/Day Years [...] Telephone Encounter - Kyara Lund PA - 07/04/2011 0952 EDT Patient is doing well. She is still having pain which is well controlled with pain medication. She is able to walk with a walker. She is wearing her TLSO brace. She will follow up with us in 4 weeks with an x-ray. She will call as needed. documented in this encounter Plan of Treatment Not on file documented as of this encounter Visit Diagnoses Not on filedocumented in this encounter Care Teams Workcell Operator Relationship Specialty Start Date End Date Shelby Pastor MD [address] [address] PCP - General 06/28/11 09/28/18 documented as of this encounter
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
--- OUTSIDE RECORDS SUMMARY | 2024-01-15 16:51 | XMS_ITS | Encounter Summary ---
Author Organization [facility] Address [address] [place] [address] Care Team Providers Care Pet Care Attendant Name Role Phone Shelby Pastor MD Primary Care Provider +1- [phone] Reason for Visit * Reason Onset Date Comments Results 09/18/2011 Encounter Details Date Type Department Care Team (Late st Contact Info) Description 09/18/2011 Telephone [facility] Endocrinology - [address] [address] Rhonda Kulkarni MD [address] [place] [address], [facility] [address] [place] [address] Results Social History Tobacco Use Types Packs/Day Years [...] encounter Miscellaneous Notes * Telephone Encounter - Oliva Ramos - 09/18/2011 1136 EDT Call to Rachana: relayed Dr. kulkarni's message. * Telephone Encounter - Rhonda Kulkarni - 09/18/2011 1025 EDT This patient has mild hyperprolactinemia that we are going to treat with Dostinex. Please let her know that when we checked her other pituitary labs they were all normal, and her prolactin is still in the low 50s, so no change there (no surprises). We will see if the Dostinex can control this when she gets labs in 8 weeks. Thanks documented in this encounter Plan of Treatment Not on file documented as of this encounter Visit Diagnoses Not on filedocumented in this encounter Care Teams Pet Care Attendant Relationship Specialty Start Date End Date Shelby Pastor MD [address] [address] PCP - General 06/28/11 09/28/18 documented as of this encounter
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
--- OUTSIDE RECORDS SUMMARY | 2024-01-15 16:51 | XMS_ITS | Encounter Summary ---
Author Organization [facility] Address [address] [place] [address] Care Team Providers Care Dermatology Sales Representative Name Role Phone Unavailable Primary Care Provider Unavailabl e Encounter Details Date Type Department Care Team (Late st Contact Info) Description 10/13/2009 Results Only [facility] Laboratory Services - [facility] ([facility] [address] [place] [address] Shelby Pastor MD [address] [address] Social History Tobacco Use Types Packs/Day Years Used Date Smoking Tobacco: Never Assessed Sex and Gender Information Value Date Recorded Sex Assigned at Not on file Gender Identity Not on file Sexual Orientation Not on file documented as of this encounter Plan of Treatment Not on file documented as of this encounter Procedures Procedure Name Priority Date/Time Associated Diagnosis Comments CYTOPATHOLOGY Routine 10/13/2009 0:00 EDT documented in this encounter Results * CYTOPATHOLOGY (10/13/2009 0:00 EDT) Pathology Report: CYTOPATHOLOGY REPORT ? Reports generated via electronic interface contain original data; ? however they are lacking the format of the original report. ? Caution should be taken when reading/interpreti ng unformatted reports. ? Name: ? KIMI HILL ? Accession #: ? [id number] ? : ? 1990 (Age: 18) ??F ?Collect Date: ? 10/13/2009 ? Location: ? [facility] ? Receive Date: ? 10/17/2009 ? Provider: ?SHELBY PASTOR MD ? Copy to: ? Specimen/Source: ?Pap Test, Cervix, ThinPrep Imaging System with manual ?? evaluation ? Last Menstrual Period: ? Other: ? HPVA - HPV testing requested if ASC-US on the current ThinPrep Pap test. ? SPECIMEN ADEQUACY ? Satisfactory for Evaluation ? - transformation zone component present ? GENERAL CATEGORIZATION ? Negative for Intraepithelial Lesion or Malignancy ? INTERPRETATION ? Shift in navid present suggestive of bacterial vaginosis. ? Document reviewed and electronically signed by: ? Jimmy Stumler, CT(ASCP) ? Report Date: ??10/19/2009 12:15 ? End of Report ? [facility] 10/13/2009 10/17/2009 Shelby Pastor MD PATHOLOGY ORDERABL ES [facility] [address] [place] [address] documented in this encounter Visit Diagnoses Not on filedocumented in this encounter
--- OUTSIDE RECORDS SUMMARY | 2024-01-15 16:51 | XMS_ITS | Encounter Summary ---
Author Organization [facility] Address [address] [place] [address] Care Team Providers Care Nursing Associate Name Role Phone Shelby Pastor MD Primary Care Provider [phone]- [phone] Encounter Details Date Type Department Care Team (Latest Contact Info) Description 04/06/2015 16:29 EST - 04/06/2015 22:00 [facility] Hospital Encounter [facility] - [address] [address] Keri Hackett MD [address] [id number] Discharge Disposition: Home or Self Care Social [...] 06/28/2011 documented as of this encounter Discharge Diagnoses Diagnosis Z01.419 Encounter for gynecological examination (general) (routine) without abnormal findings-Z01.419[ICD-10-CM] documented in this encounter Medications at Time [...] on filedocumented in this encounter Care Teams Nursing Associate Relationship Specialty Start Date End Date Shelby Pastor MD [address] [address] PCP - General 06/28/11 09/28/18 documented as of this encounter
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
--- OUTSIDE RECORDS SUMMARY | 2024-01-15 16:51 | XMS_ITS | Encounter Summary ---
Author [facility] [place] [address] Care Team Providers Care Buffing Turner And Counter Name Role Phone Siena Jimenez Primary Care Provider + Encounter Details Date Type Department Care Team (Late st Contact Info) Description 08/18/2021 Telephone [place] [address] Suzanne Hale Social History Tobacco Use Types Packs/Day Years [...] 3:30 PM EDT Office Visit [place] [address] Parris Huntley MD [facility] [place] [address] documented as of this encounter Visit Diagnoses Not on filedocumented in this encounter Care Teams Buffing Turner And Counter Relationship Specialty Start Date End Date Siena Jimenez PA [address] [place] [address] [place] [address] PCP - General Internal Medicine 08/03/20 01/15/23 documented as of this encounter
--- OUTSIDE RECORDS SUMMARY | 2024-01-15 16:51 | XMS_ITS | Encounter Summary ---
Author Organization [facility] Address [facility] [place] [address] Care Team Providers Care Paper Making Machine Operator Name Role Phone Shorty Beaulieu Primary Care Provider [phone] Reason for Visit * Reason Onset Date Comments Medication Refill 12/11/2023 Encounter Details Date Type Department Care Team (Late st Contact Info) Description 12/11/2023 [place] [address] Parris Huntley MD [facility] DR ENDOCRINOLOG[place] [address] Hyperprolactinemia Social History Tobacco Use Types Packs/Day Years Used Date Smoking Tobacco: Former Cigarettes 0.3 3 0 11/03/2011 - 11/02/2014 Smokeless Tobacco: Never Comments:2 to 3 cigarettes d aily Sex and Gender Information Value Date Recorded Sex Assigned at Not on file Gender Identity Not on file Sexual Orientation Not on file documented as of this encounter Miscellaneous Notes * Addendum Note - Perfecto Goodwin MD - 12/11/2023 2:37 PM EDTAddended by: PERFECTO GOODWIN on: 12/11/2023 02:37 PM Modules accepted: Orders * Addendum Note - Milagros Holman RN - 12/11/2023 2:27 PM EDTAddended by: MILAGROS HOLMAN on: 12/11/2023 02:27 PM Modules accepted: Orders * Telephone Encounter - Milagros Holman RN - 12/11/2023 1:44 PM EDT Per pt request, LILLY: 01/16/2023 Talha Rodriguez DO, FUV: 01/22/2024 Parris Huntley MD. Thank you! * Telephone Encounter - Dominic Mirza - 12/11/2023 1:18 PM EDT Patient needs a refill of cabergoline (Dostinex) 0.5 mg tablet sent to [facility]. Pharmacy phone# [phone] documented in this encounter Plan of Treatment Upcoming Encounters Date Type Department Care Team (Late st Contact Info) Description 01/22/2024 3:30 PM EDT Office [place] [address] Parris Huntley MD [facility] DR ENDOCRINOLOGY [place] [address] documented as of this encounter Visit Diagnoses Diagnosis Hyperprolactinemia Other and unspecified anterior pituitary hyperfunction documented in this encounter Care Teams Paper Making Machine Operator Relationship Specialty Start Date End Date Shorty Beaulieu PA Thomas [address] [place] [address] PCP - General Internal Medicine 01/16/23 documented as of this encounter
--- OUTSIDE RECORDS SUMMARY | 2024-01-15 16:51 | XMS_ITS | Clinical Summary ---
Author Organization [facility] Address [facility] [place] [address] Care Team Providers Care Back Order Clerk Name Role Phone Shorty Beaulieu Primary Care Provider [phone] Allergies Active Allergy Reactions Criticality Noted Date Comments Avocado Itching 11/02/2016 Gluten Protein 01/16/2023 Honey 08/08/2020 Kiwi (Actinidia Chinensis) Medications Medication Sig Dispensed Refills Start Date End Date Status citalopram (CELEXA) 10 mg Tablet Take 30 mg by mouth daily. Active hydrOXYzine (Atarax) 25 mg Tablet Take 25 mg by mouth as needed. 06/07/2020 Active citalopram (CeleXA) 20 mg Tablet 20 mg. 08/11/2020 Active multivitamin (THERAGRAN) Tablet Take 1 tablet by mouth daily. Active cabergoline (Dostinex) 0.5 mg tabletIndications:Hyp erprolactinemia Take 0.5 tablets by mouth twice a week. 8 tablet 12/12/2023 Active Active Problems Problem Noted Date Diagnosed Date Bicuspid aortic valve 08/09/2020 Overview (09/05/2020): Images from the original note were not included. Mild-moderate aortic insufficiency per echo 08/2020 (see below, also in scanned media) Cigarette Book Maker Dr[facility] Stanislaw Chanel, [facility] Depression with anxiety 08/08/2020 Dysmenorrhea 08/05/2017 Chronic female pelvic pain 08/05/2017 Hyperprolactinemia 09/13/2011 Encounters Date Type Department Care Team Description 12/11/2023 Ref[place] [address] Parris Huntley MD Hyperprolactinemia from Last 3 Months Social History Tobacco Use Types Packs/Day Years [...] ??F) 01/16/2023 2:34 PM EDT Respiratory Rate 20 08/16/2021 9:32 AM EDT Oxygen Saturation 99% 01/16/2023 2:34 PM EDT Inhaled Oxygen Concentration - - Weight 91.2 kg (201 lb) 01/16/2023 2:34 PM EDT Height 170.2 cm (5' 7) 01/16/2023 2:34 PM EDT Body Mass Index 31.48 01/16/2023 2:34 PM EDT Plan of Treatment Upcoming Encounters Date Type Department Care Team (Late st Contact Info) Description 01/22/2024 3:30 PM EDT Office [place] [address] Parris Huntley MD [facility] [place] [address] Health Maintenance Due Date Last Done Comments HIV screen 2006 Hepatitis C Screening 2006 Lipid Screening 2006 Hepatitis B vaccine (0-59 yrs) (1) 11/06/2007 Tetanus/Diphtheria/Pertussis Vaccines (1 - Tdap) 11/05 HPV test 2018 PAP Smear 2018 Covid-19 Vaccine (1 - 2022- season) 2023 Influenza (Flu) vaccine (1 o f 1 - Influenza standard series) 11/24/2023 Care Teams Back Order Clerk Relationship Specialty Start Date End Date Shorty Beaulieu PA [address] [place] [address] PCP - General Internal Medicine 01/16/23
--- OUTSIDE RECORDS SUMMARY | 2024-01-15 16:52 | XMS_ITS | Encounter Summary ---
Author Organization [facility] [place] [address] Care Team Providers Care Cafeteria Or Lunchroom Checker Name Role Phone Ric Sow MD Primary Care Provider [phone] Reason for Visit * - Closed Specialty Diagnoses / Procedures Referred By Contac t Referred To Contact Procedures Film Library- Storage Only Ultrasound Study Ric Sow MD [address] [place] [address] Referral ID Status Reason Start Date Expiration Date Visits Re quested Visits Authorized [id number] Closed 07/29/2020 07/29/2021 1 1 Encounter Details Date Type Department Care Team (Late st Contact Info) Description 07/07/2020 Ancillary Procedure Radiology Library at [facility] [place] [phone] Ric Sow MD [address] [place] [address] Social History Tobacco Use Types Packs/Day Years Used Date Smoking Tobacco: Former Cigarettes Q uit: 11/02/2014 Smokeless Tobacco: Never Sex and Gender Information Value Date Recorded Sex Assigned at Not on file Gender Identity Not on file Sexual Orientation Not on file documented as of this encounter Plan of Treatment Upcoming Encounters Date Type Department Care Team (Late Contact Info) Description 01/22/2024 3:30 PM EDT Office Visit Endocrinology at [facility] [place] [phone] [facility] [place] [address] documented as of this encounter Procedures Procedure Name Priority Date/Time Associated Diagnosis Comments FILM LIBRARY STORAGE ONLY ULTRASOUND STUDY Routine 07/07/2020 12:00 AM EDT documented in this encounter Results * Film Library- Storage Only Ultrasound Study (07/07/2020 12:00 AM EDT) Narrative [facility] - 07/29/2020 4:41 PM EDT This exam is auto-finalizing. It's purpose is for storage only. Ric Sow MD [facility] FILM LIBRARY ORD ERABLES [place], [place] documented in this encounter Visit Diagnoses Not on filedocumented in this encounter Care Teams Cafeteria Or Lunchroom Checker Relationship Specialty Start Date End Date Ric Sow MD [address] [place] [phone] PCP - General 02/14/10 08/02/20 documented as of this encounter
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
--- OUTSIDE RECORDS SUMMARY | 2024-01-15 16:52 | XMS_ITS | Encounter Summary ---
Author Organization [facility] Address [facility] [place] [address] Care Team Providers Care Health Counselor Name Role Phone Siena Jimenez Primary Care Provider + Reason for Visit * Reason Comments Establish Care * Consultation (Routine) - Closed Specialty Diagnoses / Procedures Referred By Raza gerard Referred To Contact Obstetrics and Gynecology Diagnoses Pelvic and perineal pain Siena Jimenez PA [address] [place] [address] [place] [address] [facility] [employer] [address] [place] [address] Referral ID Status Reason Start Date Expiration Date V isits Requested Visits Authorized [id number] Closed Consult, [facility] PCP Updated and/or Approved 07/29/2020 07/29/2021 6 6 Encounter Details Date Type Department Care Team (Late st Contact Info) Description 08/08/2020 3:00 PM EDT Office Visit Obstetrics [place] [address] Kyara Grissom MD [facility] DR OBSTETRICS & [place] [address] Chronic pelvic pain in female; Bicuspid aortic valve Social History Tobacco Use Types Packs/Day Years Used Date Smoking Tobacco: Former Cigarettes Q uit: 11/02/2014 Smokeless Tobacco: Never Sex and Gender Information Value Date Recorded Sex Assigned at Not on file Gender Identity Not on file Sexual Orientation Not on file documented as of this encounter Last Filed Vital Signs Vital Sign Reading Time Taken Comments Blood Pressure 131/79 08/08/2020 2:45 PM EDT Pulse 79 08/08/2020 2:45 PM EDT Temperature 36.7 ??C (98 ??F) 08/08/2020 2:45 PM EDT Respiratory Rate 18 08/08/2020 2:45 PM EDT Oxygen Saturation 100% 08/08/2020 2:45 PM EDT Inhaled Oxygen Concentration - - Weight 92 kg (202 lb 14.4 oz) 08/08/2020 2:45 PM EDT Height - - Body Mass Index 32.5 11/02/2016 12:41 PM EDT documented in this encounter Progress Notes * GrissomAnushkaKyara M - 08/08/2020 3:00 PM EDT Images from the original note were not included. New Patient Visit Rachana Stearns [id number] 08/14/2020 Reason for Visit: Rachana is a 29 y.o. G0 premenopausal female who presents to [facility]. She also presents with the following complaints/concerns: right- sided pelvic pain. PMH is significant for hyperprolactinemia treated with cabergoline, congenital bicuspid aortic valve. She initially presented with spontaneous galactorrhea and then developed amenorrhea which led to her diagnosis of hyperprolactinemia in 2011 ([facility] started on cabergoline with subsequent resumption of normal flow and cessation of . Pituitary MRI at that time reportedly WNL. She was on and off cabergoline over the nextseveral years, re-presented to [facility] 2018 and re-started carbergoline. Workup at that time also notably negative for PCOS, CAH. With regard to her pelvic pain, it is right-sided, as been present for 2 years, worse with menses and becoming stronger over time. It is now daily, 5/10 and acutely worsens with menses, dramatically worse (10/10) with menses x 2-3 months. She was seen by CNM at [facility] in May 2020, had a TVUS w/o abnormalities, elected trial of OCPs (Aviane 0.1 mg LNG, 0.02 mg ethinyl estradiol) for management of symptoms. She was instructed to stop her cabergoline when initiating this (stoped 07/15). Within 2 days of starting OCPs she describes acute worsening of her pain which led her to discontinue the OCPs. She then had a week of spotting followed by a full menses. She has not restarted cabergoline. LMP 08/02/20. Menstrual cycle every ~24 days lasting 4-5 days. Moderate flow, changes menstrual cup 2-3/day on average. 12 years old at menarche. Not currently sexually active. Previous use of OCPs inteens. + history of Chlamydia ~age [age], treated without issue. Last pap on 11/10/2019. Results NILM, neg HPV. She has no history of abnormal paps. She has an echo planned for August 2020 to assess her known bicuspid aortic valve. She is also scheduled to undergo a repeat pituitary MRI. Health Maintenance Summary Overdue - Hepatitis C Screening (Once) Overdue - never done No completion history exists for this topic. Overdue - Lipid Screening (Every 5 Years) Overdue - never done No completion history exists for this topic. Overdue - HIV screen (Once) Overdue - never done No completion history exists for this topic. Overdue - Tdap adult (Once) Overdue - never done No completion history exists for this topic. Overdue - Tetanus vaccine (Every 10 Years) Overdue - never done No completion history exists for this topic. Overdue - PAP Smear (Every 5 Years) Overdue - never done No completion history exists for this topic. Overdue - HPV test (Every 5 Years) Overdue - never done No completion history exists for this topic. Overdue - Influenza (Flu) vaccine (1 of 1 - Influenza standard series) Overdue - never done No completion history exists for this topic. OB History No obstetric history on file. No past medical history on file. No past surgical history on file. No family history on file. Social History Socioeconomic History ??? Marital status: Single Spouse name: None ??? Number of children: None ??? Years of education: None ??? Highest education level: None Occupational History ??? None Tobacco Use ??? Smoking status: Former Smoker Quit date: 11/02/2014 Years since quittin.7 ??? Smokeless tobacco: Never Used Substance and Sexual Activity ??? Alcohol use: None ??? Drug use: None ??? Sexual activity: None Other Topics Concern ??? None Social History Narrative ??? None Social Determinants of Health Financial Resource Strain: ??? Difficulty of Paying Living Expenses: Food Insecurity: ??? Worried About Running Out of Food in the Last Year: ??? Ran Out of Food in the Last Year: Transportation Needs: ??? Lack of Transportation (Medical): ??? Lack of Transportation (Non-Medical): Physical Activity: ??? Days of Exercise per Week: ??? Minutes of Exercise per Session: has a current medication list which includes the following prescription(s): tramadol, acetaminophen, hydroxyzine, citalopram, and cabergoline. Allergies Allergen Reactions ??? Avocado Itching ??? Honey ??? Kiwi (Actinidia Chinensis) ROS: As per HPI Physical Examination: BP 131/79 Pulse 79 Temp 36.7 ??C (98 ??F) Resp 18 Wt 92 kg (202 lb 14.4 oz) SpO2 100% BMI 32.50 kg/m?? Body mass index is 32.5 kg/m??. Constitutional: Pleasant and conversant, appears well, presents in NAD Neuro/Psychiatric: A&Ox3, appropriate affect Extremities: No lower extremity edema or erythema Gastrointestinal: Soft, nontender, nondistended ?? No rebound tenderness or guarding ?? No evidence of ventral or inguinal hernia Genitourinary: ?? External genitalia without lesions or abnormalities ?? Urethral meatus without lesions or abnormalities ?? Urethra without tenderness, masses ?? Vaginal epithelium pink and moist ?? Cervix without lesions, physiologic discharge ?? No perianal lesions ?? Pelvic support without obvious defects ?? Bimanual: No CMT; small, mobile uterus without masses or tenderness; no adnexal masses or tenderness Imaging: TVUS 06/2020 TVUS 07/24/2017: Assessment: Rachana is a 29 y.o. G0 premenopausal female who presents for evaluation of pelvic painwith cyclic worsening, recently also worsened with trial of OCPs. We discussed possible etiologies including endometriosis. We reviewed that endometriosis may be suspected based on symptoms and that empiric treatment can be used, with laparoscopy and biopsies being the gold standard for diagnosis and sometimes offering therapeutic benefit. We discussed the potential implications of endometriosis on fertility, including tubal occlusion with scar tissue and pelvic adhesions. I offered Rachana that a trial of suppression of menses with LNG-IUD or Nexplanon might improve the cyclic component of her symptoms. She feels strongly that not having a menses would be difficult for her, as amenorrhea was the hallmark of her hyperprolactinemia and she feels confident when she has a menses that her prolactin levels are under control. She would like to pursue diagnostic laparoscopy before embarking onany further empiric therapy, and is interested in simultaneous evaluation of tubal patency. We briefly discussed risks of surgery and possibility that we will still not find a clear origin for her pelvic pain, and she is accepting of this reality. Plan: ?? Diagnostic laparoscopy case requested, will plan chromopertubation if indicated ?? Will defer surgery until after echocardiogram completed to ensure patient is appropriate for this elective surgery ?? Consider PAT consult ?? RTC for in-person preop appt and consents The patient was discussed with Dr. Ervin Grissom MD, PGY4 08/14/2020 * Kedar Mueller MD - 08/08/2020 3:00 PM EDT The case was discussed at the time of the visit. The assessment and plan were formulated in discussion with me and I agree with them as documented. I have reviewed the history, physical exam, assessment and plan with Dr. Grissom. F/u echo F/u pituitary MRI, Cabergoline use Kedar Mueller MD documented in this encounter Miscellaneous Notes * Addendum Note - Kedar Mueller MD - 08/08/2020 3:00 PM EDTAddended by: EKDAR MUELLER on: 08/15/2020 09:40 PM Modules accepted: Level of Service documented in this encounter Plan of Treatment Upcoming Encounters Date Type Department Care Team (Late st Contact Info) Description 01/22/2024 3:30 PM EDT Office [place] [address] Parris Huntley MD [facility] [place] [address] documented as of this encounter Visit Diagnoses Diagnosis Chronic pelvic pain in female Unspecified symptom associated with female genital organs Bicuspid aortic valve Congenital insufficiency of aortic valve documented in this encounter Care Teams Health Counselor Relationship Specialty Start Date End Date Siena Jimenez PA [address] [place] [address] [place] [address] PCP - General Internal Medicine 08/03/20 01/15/23 documented as of this encounter
--- OUTSIDE RECORDS SUMMARY | 2024-01-15 16:52 | XMS_ITS | Encounter Summary ---
Author Organization [facility] [place] [address] Care Team Providers Care Bridges And Buildings Supervisor Name Role Phone Siena Jimenez Primary Care Provider + Encounter Details Date Type Department Care Team (Latest Contact Info) Description 09/12/2020 12:00 PM EDT TH Visit (TeleHealth) [place] [address] Chronic female pelvic pain Social History Tobacco Use Types Packs/Day Years [...] 3:30 PM EDT Office Visit [place] [address] Parris Huntley MD [facility] [place] [address] documented as of this encounter Visit Diagnoses Diagnosis Chronic female pelvic pain Unspecified symptom associated with female genital organs documented in this encounter Care Teams Bridges And Buildings Supervisor Relationship Specialty Start Date End Date Siena Jimenez PA [address] [place] [address] [place] [address] PCP - General Internal Medicine 08/03/20 01/15/23 documented as of this encounter
--- OUTSIDE RECORDS SUMMARY | 2024-01-15 16:52 | XMS_ITS | Encounter Summary ---
Author [facility] [place] [address] Care Team Providers Care Dictaphone Operator Name Role Phone Ric Sow MD Primary Care Provider [phone] Encounter Details Date Type Department Care Team (Late st Contact Info) Description 11/04/2016 Orders [place] [phone] Zia Perla MD [facility] [place] [address] Hyperprolactinemia Social History Tobacco Use Types Packs/Day [...] 3:30 PM EDT Office [place] [address] Parris Huntley MD [facility] [place] [address] documented as of this encounter Visit Diagnoses Diagnosis Hyperprolactinemia Other and unspecified anterior pituitary hyperfunction documented in this encounter Care Teams Dictaphone Operator Relationship Specialty Start Date End Date Ric Sow MD [address] [place] [phone] PCP - General 02/14/10 08/02/20 documented as of this encounter
--- OUTSIDE RECORDS SUMMARY | 2024-01-15 16:52 | XMS_ITS | Encounter Summary ---
Author Organization [facility] Address [facility] [place] [address] Care Team Providers Care Chief Concierge Name Role Phone Ric Sow MD Primary Care Provider [phone] Reason for Visit * Consultation (Routine) - Closed Specialty Diagnoses / Procedures Referred By Raza gerard Referred To Contact Endocrinology Diagnoses Amenorrhea amenorrhea Procedures consult and treat Shelby Pastor MD [facility] [address] [place] [id number] [facility] [address] [place] [phone] Referral ID Status Reason Start Date Expiration Date Visits Re quested Visits Authorized [id number] Closed 09/17/2016 09/17/2017 1 1 Encounter Details Date Type Department Care Team (Late st Contact Info) Description 11/02/2016 1:00 PM EDT Office [place] [address] Zia Perla MD [facility] [place] [address] Hyperprolactinemia Social History Tobacco Use Types Packs/Day Years Used Date Smoking Tobacco: Former Cigarettes Q uit: 11/02/2014 Smokeless Tobacco: Never Sex and Gender Information Value Date Recorded Sex Assigned at Not on file Gender Identity Not on file Sexual Orientation Not on file documented as of this encounter Last Filed Vital Signs Vital Sign Reading Time Taken Comments Blood Pressure 117/65 11/02/2016 12:41 PM EDT Pulse 60 11/02/2016 12:41 PM EDT Temperature - - Respiratory Rate - - Oxygen Saturation - - Inhaled Oxygen Concentration - - Weight 93.2 kg (205 lb 8 oz) 11/02/2016 12:41 PM EDT Height 168.3 cm (5' 6.25) 11/02/2016 12:41 PM E DT Body Mass Index 32.92 11/02/2016 12:41 PM EDT documented in this encounter Progress Notes * Zia Perla MD - 11/02/2016 1:00 PM EDT We are asked by Dr. Sow to evaluate this young woman for hyperprolactinemia and with amenorrhea Menarche at age 13 had menses monthly, then started to miss and it progressed to none Able to lactate at age 13 - with any stimulation, and this continues No pregnancies Then started control pills at 14 to regulate periods Went for an IUD and was noted to have no menses after stopping control Was found to have an elevated prolactin She admits to picking at her skin under stress and some nipple stimulation. Of note, as a teenager she had inserted a needle in her right nipple which resulted in needing a mammogram. Has been on celexa for 3 years, had been on zolfot as a teen No headaches No double vision Occ cloudy vision FH - for pit disorders, kidney stones PMH 1) depression 2) secondary amenorrhea Current Outpatient Prescriptions Medication Sig Dispense Refill ??? citalopram (CELEXA) 10 mg Tablet Take 10 mg by mouth daily. No current facility-administered medications for this visit. 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 The retinal exam showed sharp discs and no congestion The breast exam showed no masses and no axillary lymph nodes. Thyroid exam showed no abnormality, with a normal size and texture thyroid. Neurologically there was no tremor. Recent Results (from the past 24 hour(s)) Prolactin Result Value Ref Range Prolactin 83.1 (H) 4.8 - 23.3 ng/mL Luteinizing Hormone Result Value Ref Range LH 9.0 mlU/ML Follicle Stimulating Hormone Result Value Ref Range FSH 5.6 mlU/ML TSH Result Value Ref Range TSH 1.09 [...] - 10.5 mg/dL Estimated GFR >60 >=60 1 hyperprolactinemia-Ms. Stearns has a moderately elevated prolactin, cessation of menses and . This is possibly a small prolactinoma. However she has a history of skin and breast manipulation, and the started even before her menses stopped and she has not shown suppression of LHor FSH so that is possible this is an elevation in prolactin due to chronic nipple stimulation. In either event, cabergoline should stop the , allow resumption of menses and reduce the prolactin to under 5 ng per meal. We will do an MRI to see if there is a prolactinoma present. There is no evidence for other pituitary dysfunction with normal sodium, thyroid tests, gonadotropins and her growth hormone testing is pending. I explained to her that the problem of prolactinoma is the lack of menstruation which leads to lossof bone density and infertility. I emphasized that a prolactinoma is not a cancer and is controlledby medications and usually not surgery. I also went over theatchronic different nipple stimulation could result in a similar picture documented in this encounter Plan of Treatment Upcoming Encounters Date Type Department Care Team (Late st Contact Info) Description 01/22/2024 3:30 PM EDT Office Visit Endocrinology at [facility] [place] [address] Parris Huntley MD [facility] [place] [address] documented as of this encounter Procedures Procedure Name Priority Date/Time Associated Diagnosis Comments INSULIN LIKE GF-1 Routine 11/02/2016 1:5 9 PM EDT Hyperprolactinemia PROLACTIN Routine 11/02/2016 1:59 PM EDT Hyperprolactinemia TSH Routine 11/02/2016 1:59 PM EDT Hyperprolactinemia T4, FREE Routine 11/02/2016 1:59 PM EDT Hyperprolactinemia LUTEINIZING HORMONE Routine 11/02/2016 1 :59 PM EDT Hyperprolactinemia FOLLICLE STIMULATING HORMONE Routine 11/02/2016 1:59 PM EDT Hyperprolactinemia BASIC METABOLIC PANEL Routine 11/02/2016 1:59 PM EDT Hyperprolactinemia documented in this encounter Results * (ABNORMAL) Basic Metabolic Panel (non-fasting) (11/02/2016 1:59 PM EDT) Glucose 89 65 - 199 mg/dL [facility] Comment:Diabetes: >=200 mg/d L plus symptoms Blood Urea Nitrogen 14 8 - 18 mg/dL [facility] Creatinine 0.85 0.70 - 1.20 mg/dL [facility] Comment: Please note that the pediatric reference intervals supplied above were not validated at [facility]. Results from pediatric patients should be interpreted in conjunction to the patient's age, height and muscle mass. Sodium 140 135 - 145 mmol/L [facility] Potassium 3.9 3.5 - 5.0 mmol/L [facility] Comment: Please note: ??Patients with WBC >100,000 may have falsely elevated Potassium levels. ??For accurate Potassium quantification in these patients send serum separator tube (gold top) for subsequent determinations. ??Contact the Clinical Chemistry Laboratory if there are any questions. Chloride 102 98 - 107 mmol/L [facility] Carbon Dioxide 22 22 - 31 mmol/L [facility] Anion Gap 16(H) 5 - 15 mmol/L [facility] Calcium 9.3 8.5 - 10.5 mg/dL [facility] Est Glomerular Filtration Rate >60 >=60 [facility] Comment: This estimated GFR (eGFR) value was calculated using the MDRD equation which has been validated on patients between the ages of 18 and 70. The MDRD should not be used to assess kidney function in patients < 18 years of age or in patients with extremes of body mass, or in patients with acute kidney failure. This value should be multiplied by 1.2 for patients. For further information please copy and paste the following links into your internet browser. [email or web address] [email or web address] Blood specimen (specimen) 11/02/2016 1:59 PM EDT 11/02/2016 2:09 PM EDT Narrative Resulting Agency Comment Spec In Lab Zia Perla MD CHEMISTRY ORDERABLES [facility] [place] [address] * T4, free (11/02/2016 1:59 PM EDT) Free T4 0.96 0.93 - 1.70 ng/dL [facility] Blood specimen (specimen) 11/02/2016 1:59 PM EDT 11/02/2016 2:09 PM EDT Narrative Resulting Agency Comment Spec In Lab Zia Perla MD CHEMISTRY ORDERABLES Performing Organization Address [facility] Co de Phone Number [facility] [place] [place] [address] * TSH (11/02/2016 1:59 PM EDT) Pathologist [facility] Thyroid Stimulating Hormone 1.09 0.27 - 4.20 mlU/ML [facility] Blood specimen (specimen) 11/02/2016 1:59 PM EDT 11/02/2016 2:09 PM EDT Narrative Resulting Agency Comment Spec In Lab Zia Perla MD CHEMISTRY ORDERABLES Performing Organization Address [facility] de Phone Number [facility] [place] [address] * Insulin Like GF-1 (11/02/2016 1:59 PM EDT) Pathologist [facility] Igf-1 Z-Score (MAY) 122 78 - 270 ng/mL [facility] Comment: Wayne Scale Reference Intervals: Gender ?Wayne Stage ?IGF-1 [Somatomedin-C](ng/mL) Male ?I ?81-255 Male ? II ?106-432 Male ?III ?245-511 Male ? IV ?223-578 Male ?V ?227-518 Female ?I ?86-323 Female ? II ?118-451 Female ?III ?258-529 Female ? IV ?224-586 Female ?V ?235-331 IGF-1 [Somatomedin-C] Wayne Stage information from a cohort of 854 healthy children (including normal height and weight) were collected and analyzed on the IDS assay. ??All children were examined by an experienced physician and the pubertal stage was defined according to Wayne. Blood specimen (specimen) 11/02/2016 1:59 PM EDT 2016 7:21 AM EDT Narrative Resulting Agency Comment Spec In Lab Zia Perla MD LAB SEND OUT ORDERAB LES Performing Organization Address [facility] de Phone Number [facility] [place] [address] * Follicle Stimulating Hormone (11/02/2016 1:59 PM EDT) Follicle Stimulating Hormone 5.6 mlU/ML [facility] Comment: Reference Ranges: Females: Follicular: ? 3.5-12.5 mIU/mL Ovulation: ?4.7-21.5 mIU/mL Luteal: ? 1.7-7.7 mIU/mL Postmenopausal: 25.8-134.8 mIU/mL Blood specimen (specimen) 11/02/2016 1:59 PM EDT 11/02/2016 2:09 PM EDT Narrative Resulting Agency Comment Spec In Lab Zia Perla MD CHEMISTRY ORDERABLES Performing Organization Address [facility] Co de Phone Number [facility] [place] [address] * Luteinizing Hormone (11/02/2016 1:59 PM EDT) Luteinizing Hormone 9.0 mlU/ML [facility] Comment: Reference ranges: ?? Females ?? Follicular: ? 2.4-12.6 mIU/mL ?? Ovulation: ?14.0-95.6 mIU/mL ?? Luteal: ? 1.0-11.4 mIU/mL ?? Postmenopausal: ? 7.7-58.5 mIU/mL Blood specimen (specimen) 11/02/2016 1:59 PM EDT 11/02/2016 2:09 PM EDT Narrative Resulting Agency Comment Spec In Lab Zia Perla MD CHEMISTRY ORDERABLES Performing Organization Address [facility] Co de Phone Number [facility] [place] [address] * (ABNORMAL) Prolactin (11/02/2016 1:59 PM EDT) Prolactin 83.1(H) 4.8 - 23.3 ng/mL [facility] Blood specimen (specimen) 11/02/2016 1:59 PM EDT 11/02/2016 2:09 PM EDT Narrative Resulting Agency Comment Spec In Lab Zia Perla MD CHEMISTRY ORDERABLES Performing Organization Address [facility] Co de Phone Number [facility] [place] [address] documented in this encounter Visit Diagnoses Diagnosis Hyperprolactinemia Other and unspecified anterior pituitary hyperfunction documented in this encounter Care Teams Chief Concierge Relationship Specialty Start Date End Date Ric Sow MD [address] [place] [phone] PCP - General 02/14/10 08/02/20 documented as of this encounter
== END 2024-01-15 16:50 | disposition home or self-care (01) ==
LOC: NCHCN 16:49
PROVIDERS: Visit Provider Physician Assistant
DX: Z12.4 Encounter for screening for malignant neoplasm of cervix (principal)
CPT/HCPCS: 88142; 87624

== ENCOUNTER 2024-06-18 02:35 | Outpatient (CLI) | payer OTHER, SELFPAY ==
[2024-06-18 08:39] LABS: TSH 1.52 uIU/mL (0.36-3.74)
[2024-06-18 16:28] LABS: FREE T4 0.62 ng/dL (0.76-1.46)
[2024-06-18 18:05] LABS: Prolactin 15.6 ng/mL (See Note)
[2024-06-21 10:52] LABS: Free Thyroxine Index 4.1 mcg/dL (4.8 - 12.7); Thyroxine Total 4.1 mcg/dL (4.5 - 11.7)
== END 2024-06-18 02:36 | disposition home or self-care (01) ==
PROVIDERS: Visit Provider Student in an Organized Health Care Education/Training Program
DX: D35.2 Benign neoplasm of pituitary gland (principal)
CPT/HCPCS: 36415; 84146; 84436; 84439; 84443; 84479

== ENCOUNTER 2024-06-24 16:14 | Outpatient (CLI) | payer OTHER, SELFPAY ==
[2024-07-01 13:26] LABS: T4,Free, Direct Dialysis 1.5 ng/dL (0.9-2.2)
== END 2024-06-24 16:15 | disposition home or self-care (01) ==
LOC: LBO 16:23
PROVIDERS: Visit Provider Student in an Organized Health Care Education/Training Program
DX: R94.6 Abnormal results of thyroid function studies (principal)
CPT/HCPCS: 36415; 84439

== ENCOUNTER 2024-07-16 01:19 | Outpatient (CLI) | payer OTHER, SELFPAY ==
--- NOTE | 2024-07-16 09:16 | DI.RAD_ITS ---
Exam(s) XR FOOT LT COMPLETE EXAM: XR FOOT LT COMPLETE CLINICAL HISTORY: left foot pain,m79.672. TECHNIQUE: 2D digital imaging was performed of the left foot. Three images were obtained. AP, obli que and lateral views were obtained. COMPARISON: There are no priors for comparison. FINDINGS: BONES: No acute fracture is present. No bony destructive lesion is seen. JOINTS: No dislocation present. The joint spaces are well maintained. SOFT TISSUE: Normal. IMPRESSION: No acute abnormality. DATA REPOSITORY: RADIATION DOSE DELIVERED:
== END 2024-07-16 01:39 ==
LOC: DI 01:20
PROVIDERS: Visit Provider Podiatrist
DX: M79.672 Pain in left foot (principal)
CPT/HCPCS: 73630

== ENCOUNTER 2024-12-24 04:04 | Outpatient (CLI) | payer OTHER, SELFPAY ==
[2024-12-24 09:21] LABS: TSH 1.33 uIU/mL (0.36-3.74)
[2024-12-25 18:51] LABS: Free Thyroxine Index 3.6 mcg/dL (4.8 - 12.7); Thyroxine Total 3.6 mcg/dL (4.5 - 11.7)
== END 2024-12-24 04:05 | disposition home or self-care (01) ==
LOC: LBO 04:04
PROVIDERS: PCP Physician Assistant; Visit Provider Student in an Organized Health Care Education/Training Program
DX: D35.2 Benign neoplasm of pituitary gland (principal)
CPT/HCPCS: 36415; 84146; 84436; 84439; 84443; 84479

== ENCOUNTER 2025-01-12 00:16 | Outpatient (CLI) | payer OTHER, SELFPAY ==
--- NOTE | 2025-01-12 | DI.MRI_ITS ---
Exam(s) MR BRAIN PITUITARY WO/W EXAM: MR BRAIN PITUITARY WO/W CLINICAL HISTORY: MICROPROLACTINOMA, D35.2 TECHNIQUE: Multiplanar multisequence MRI of the brain and pituitary gland was performed. CONTRAST MATERIAL: IV Contrast: 20 mL of Dotarem contrast administered. COMPARISON: No exams were available for comparison Findings: VENTRICLES AND EXTRA AXIAL SPACES: Normal in size and morphology for the patient's age. 9 millimeter pineal cyst noted. There is no surrounding mass effect. HEMORRHAGE: None. CEREBRAL PARENCHYMA: No focus of restricted diffusion to suggest acute infarct. No space-occupying lesion identified. MIDLINE SHIFT: None. 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 CALVARIUM: Normal. ENHANCEMENT: No suspicious enhancement identified. VISUALIZED PARANASAL SINUSES/MASTOIDS: Minimal mucosal thickening at the floors of the maxillary sinuses. OTHER FINDINGS: None. PITUITARY: Pituitary stalk is midline. The gland demonstrates homogenous T2-weighted signal intensity with homogeneous enhancement. No evidence of macroadenoma or microadenoma. The optic chiasm is unremarkable. The cavernous portions of both carotid arteries are unremarkable. Impression: Unremarkable MRI of the brain and pituitary gland. 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 DATA REPOSITORY:
[2025-01-12] MEDS: Gadoterate meglumine 20 ML SYRINGE IVP (13:37)
[2025-01-12] MEDS: Normal Saline Flush 10 ML SYR IVP (13:38)
== END 2025-01-12 00:36 ==
LOC: DI 00:16
PROVIDERS: PCP Physician Assistant; Visit Provider Student in an Organized Health Care Education/Training Program
DX: D35.2 Benign neoplasm of pituitary gland (principal)
CPT/HCPCS: 70553

== ENCOUNTER → 2025-02-02 00:30 | Outpatient (CLI) | payer OTHER, SELFPAY ==
--- NOTE | 2025-02-02 | DI.US_ITS ---
APPROVED REPORT EXAM: Comprehensive 2D, Doppler, and color-flow Echocardiogram Patient Location: Out-Patient [facility] [employer] Instructor: Cassie Lopez RT (R) (CT) [facility] Rhythm: NSR Indications: Bicuspid aortic valve, surveillance. Other Information Study Quality: Adequate Conclusion Normal left ventricular wall thickness and chamber size. Ejection fraction is 60%. Wall motion is normal Normal right ventricular size and function Both atria are normal in size Aortic valve is bicuspid with thickened leaflets. There is no hemodynamically significant aortic stenosis. There is mild aortic regurgitation Estimated right ventricular systolic pressure is 21 mmHg Normal aortic root and ascending aorta Wall motion Left Ventricle The left ventricle is normal size. The left ventricular systolic function is normal. The left ventricular ejection fraction is within the normal range. There is normal left ventricular wall thickness. There is normal LV segmental wall motion. The left ventricular diastolic function is normal. There is no ventricular septal defect visualized. LVEF is 60%. Right Ventricle The right ventricle is normal size. The right ventricular systolic function is normal. There is normal right ventricular wall thickness. Atria The left atrium size is normal. The right atrium size is normal. The interatrial septum is intact with no evidence for an atrial septal defect. Aortic Valve Aortic valve is bicuspid. Mildly thickened leaflets, but valve appears to open well. There is no aortic valvular stenosis. Mild aortic regurgitation. Mitral Valve The mitral valve is normal in structure. No evidence of mitral valve stenosis. Trace mitral regurgitation. Tricuspid Valve The tricuspid valve is normal in structure. There is no tricuspid valve stenosis. Trace to mild tricuspid regurgitation. The RVSP is 20.27 mmHg. Pulmonic Valve The pulmonary valve is normal in structure. Trace pulmonic regurgitation. Great Vessels The aortic root is normal in size. The pulmonary artery is normal. The ascending aorta is normal in size. IVC is normal in size and collapses >50% with inspiration. Pericardium There is no pericardial effusion. 2D Dimensions IVSD d PLAX 1.00 cm F: 0.6-1.0 Ao Root d 3.20 cm F: 2.7 - 3.3 LVPW d PLAX 0.88 cm F: 0.6 - 1.0 Ao Asc Diam d 3.16 cm F: 2.3 - 3.1 LVID d PLAX 4.66 cm F: 3.8 - 5.2 Prox Ao Arch 2.5 cm LVDs 3.09 cm F: 2.2 - 3.5 IVC Diam exp d SLAX 1.3 cm LV EF Teichholz 62.5 % FS 33.71 % LV EDV (Teich) 100.3 mL LV ESV (Teich) 37.6 mL Stroke Vol Index (Teich) 29.17 M-Mode TAPSE 2.53 cm (M/F) >1.7 Auto EF LV EDV A4C 121.5 mL LV EDV A2C 95.5 mL LV EDV BP 105.9 mL LV ESV A4C 69.9 mL LV ESV A2C 43.9 mL LV ESV BP 55.7 mL LVEF(%) A4C 42.5 % LVEF(%) A2C 54.0 % LVEF(%) BP 47.4 % LV SV A4C 51.6 ml LV SV A2C 51.6 ml LV SV BP 50.2 ml LV CO A4C 3.4 L/min LV CO A2C 3.1 L/min LV CO BP 3.2 L/min HR A4C 65.10 BPM HR A2C 59.50 BPM LV EDV Index (BP) LV Volumes - Method of Disks (Alexander's) Single Plane 2D LV Volumes Biplane 2D LV Volumes LV EDV A4C 72.0 mL LV EDV BP 71.54 mL F: 46 - 106 LV ESV A4C 22.0 mL LV ESV BP 26.9 mL LVEF(%) A4C 69.4 % LVEF(%) BP 62.47 % F: 54 - 74 LV EDV A2C 69.8 mL LV EDV BP Index 33.27 mL/m2 F: 29 - 61 LV ESV A2C 32.1 mL SV BP LVEF(%) A2C 54.1 % SV Index LV Strain Long Pk Overal Avg (s) 14.40 LA Volume LA Length A4C 5.9 cm LA Length A2C 4.8 cm LA Area A4C s 18.28 cm2 LA Area A2C s 14.32 cm2 LA Vol A4C A-L 48.36 mL LA Vol A2C A-L 36.11 mL LA Vol Biplane A-L 46.1 mL LA Vol/BSA A4C A-L LA Vol/BSA A2C A-L LA Vol/BSA BP A-L 21.4 mL/m2 LA Vol A4C MOD 45.3 mL LA Vol A2C MOD 35.0 mL LA Vol BP MOD 43.7 mL LV Diastology MV E' medial 0.088 (>0.07 m/s) MV E Vmax 0.71 (0.4-1.3 m/s) MV E/E' MED 8.05 (<14) MV A Vmax 0.60 (0.4-1.3 m/s) MV E' lateral 0.126 (>0.1 m/s) E/A Ratio 1.2 MV E/E' LAT 5.60 (<14) MV E' Average 0.107 m/s MV E/E'(average) 6.60 Aortic Valve AoV Vmax 1.74 m/s LVOT Vmax 0.82 m/s AoV Peak Grad 12.1 mmHg LVOT Peak Grad 2.7 mmHg AoV Area (Vmax) 2.28 cm2 LVOT VTI 0.159 m AoV VTI 0.352 m LVOT Mean Grad 1.5 mmHg AoV Mean Sonny. 1.26 m/s LVOT SV 77.12 mL AoV Mean Grad 6.8 mmHg LVOT Diam s 2.45 cm AoV Area (VTI) 2.19 cm2 AV Regurg Peak Gr. 12.14 mmHg Velocity Ratio 0.47 Mitral Valve MV DT 180 (160-240 msec) Pulmonary Valve RVOT Vmax 0.46 m/s RVOT Peak Gr. 0.8 mmHg RVOT VTI 0.078 m RVOT Mean Gr. 0.4 mmHg Tricuspid Valve RA Pressure 3.00 mmHg TR Vmax 2.08 m/s TV S' 0.14 m/s TR Peak Grad 17.2 mmHg RVSP (TR) 20.3 mmHg
== END ==
LOC: DI 00:30
PROVIDERS: PCP Physician Assistant; Visit Provider Physician Assistant
DX: Q23.81 Bicuspid aortic valve (principal)
CPT/HCPCS: 93306

== ENCOUNTER 2025-02-22 10:33 | Outpatient (CLI) | payer OTHER, SELFPAY | END 2025-02-22 10:34 | disposition home or self-care (01) | LOC: LBO 10:34 | PROVIDERS: PCP Physician Assistant; Visit Provider Student in an Organized Health Care Education/Training Program | DX: D35.2 Benign neoplasm of pituitary gland (principal) | CPT/HCPCS: 36415; 84146 ==